=== PATIENT | female | born 1930 | race Caucasian/White ===

== ENCOUNTER 2020-11-05 20:45 | Inpatient (IN) ==
[2020-11-05] MEDS ORDERED: ONDANSETRON INJ 2 MG/ML 2 ML VIAL IV STA (20:56)
[2020-11-05 21:14] LABS: Basophils # (auto) 0.04 K/uL (0-0.2); Basophils % (auto) 0.3 %; Eosinophils # (auto) 0.39 K/uL (0-0.5); Eosinophils % (auto) 2.9 %; Hematocrit (blood only) 44.6 % (37-47); Hemoglobin 15.3 g/dL (12.0-16.0); Immature Granulocytes # (auto) 0.04 K/uL (0.00-0.02); Immature Granulocytes % (auto) 0.3 %; Lymphocytes # (auto) 3.03 K/uL (1.2-3.4); Lymphocytes % (auto) 22.9 %; Mean Corpuscular Hgb Conc 34.3 g/dL (32-36); Mean Corpuscular Volume 93.3 fL (80-100); Mean Platelet Volume 9.1 fL (7.4-10.4); Monocytes # (auto) 1.04 K/uL (0.11-0.59); Monocytes % (auto) 7.9 %; Neutrophils % (auto) 65.7 %; Platelet Count 301 K/uL (130-400); RDW Coefficient of Variation 13.2 % (11.5-14.5); RDW Standard Deviation 45.1 fL (36.4-46.3); Red Blood Count 4.78 M/uL (4.2-5.4); White Blood Count 13.24 K/uL (4.8-10.8)
[2020-11-05 21:30] LABS: Albumin Level 4.1 gm/dl (3.4-5.0); BUN Creatinine Ratio 14.8 (10-20); Calcium 9.7 mg/dl (8.5-10.1); Creatinine Clr Calc Pharmacy 30.6 ml/min; Est GFR (African American) 53.3; Potassium 3.7 mmol/L (3.5-5.1)
[2020-11-05 21:35] LABS: Albumin Globulin Ratio 1.1 (0.9-2); Bilirubin,Total 0.5 mg/dl (0.2-1); Globulin 3.7 gm/dl (2.5-4.0); Total Protein 7.8 gm/dl (6.4-8.2); Troponin I 0.029 ng/ml (0-0.045)
[2020-11-05] MEDS ORDERED: fentaNYL citrate 100 MCG/2 ML VIAL IV STA ×2 (21:49→22:05)
[2020-11-05] MEDS ORDERED: fentaNYL citrate 100 MCG/2 ML VIAL ONE ×2 (21:49→22:08)
--- NOTE | 2020-11-05 21:58 | Emergency Department Note ---
Impression & Plan Acute LA, Chest pain, ST elevation (STEMI) myocardial infarction ED Provider Note NAME: ALEXANDRA HERNANDEZ AGE: 89 SEX: F : [phone] ARRIVES VIA: Ambulance INFORMANT: Patient, the patient's daughter ED PROVIDER(S): Abhinav Cuevas DO CHIEF COMPLAINT: Chest pain HPI: The patient is an 89-year-old female who presented to the emergency department for an evaluation of chest pain. The patient states that she has pain which is in her anterior chest and goes between her shoulder blades. She describes it is very severe. She denies having any lower extremity pain. She does note lower extremity swelling. She denies having any abdominal pain but does complain of nausea and vomiting. Her daughter gives part of the history and states that her mother had some of this pain yesterday. The pain became much worse tonight at approximately 7 PM. That is why her mother came to the emergency department for further evaluation. She denies having any recent trauma. She has had no coughing. She does complain of some shortness of sari th. She has had no recent traveling. She is not seen her family doctor for similar pain. The patient did receive aspirin prior to arrival. She also received Zofran by nursing staff by protocol orders. ROS: See above HPI for pertinent positives & negatives. A total of 10 systems reviewed and were otherwise negative. PAST MEDICAL HISTORY: See Below PAST SURGICAL HISTORY: See Below FAMILY HISTORY: See Below SOCIAL HISTORY: See Below HOME MEDICATIONS: See Below ALLERGIES: See Below VITALS: See Below PHYSICAL EXAMINATION: GENERAL: The patient is awake and alert. The patient is very anxious appearing and appears to be in significant distress. EYES: The conjunctivae are clear. The pupils are round and reactive. EARS, NOSE, MOUTH AND THROAT: The nose is without any evidence of any deformity. NECK: The neck is nontender and supple. RESPIRATORY: Shallow respirations were noted. There were rales at both bases. CARDIOVASCULAR: Regular rate and rhythm noted there no murmurs rubs or gallops normal S1 normal S2. GASTROINTESTINAL: The abdomen is soft. Abdomen is nontender. MUSCULOSKELETAL/EXTREMITIES: There is no evidence of gross deformity full range of motion is noted in the hips and shoulders. SKIN: Skin is warm and dry. There is pedal edema bilaterally. NEUROLOGIC: Patient is awake alert and oriented x3 MEDICAL DECISION MAKING: The patient is an 89-year-old female who presented to the emergency department for an evaluation of chest pain. The patient describes anterior chest pain that radiated to her back. The patient was treated with aspirin prior to arrival. She was also treated with Zofran because of nausea and fentanyl in the emergency department for her discomfort. The patient was made a heart alert after EKG revealed signs of ST segment elevation LA. I discussed the patient's laboratory and radiographic studies with her. I also discussed her case with the on-call tailing machine operator. Given the patient's findings and degree of pain she was taken to the [facility] for further intervention. The patient was agreeable to this plan. I did review the patient's previous electronic medical records from her [facility] site. The EKG presented today showed definite changes compared to previous. Triage Nursing notes reviewed. Prior medical records reviewed Vital Signs: reviewed and remarkable for no significant abnormalities Differential diagnosis: Cardiac ischemia, aortic dissection, pulmonary embolism, pneumothorax, pneumonia, pericarditis, myocarditis, esophageal rupture, GERD, cholecystitis, pancreatitis, musculoskeletal, as well as other pathologies. ER treatment provided: See below Diagnostics interpreted by me: ECG: EKG was obtained in the emergency department. My interpretation is sinus tachycardia at 108 bpm. There was no ectopy. There was a left bundle branch block pattern noted. Acute ST segment elevations were noted in the anterior and low lateral leads that are worrisome for acute ischemia. This was compared to a tracing from June 30, 2018. The bundle branch block as well as the ST segment abnormalities are new compared to the earlier tracing. A second EKG was obtained in the ED. My interpretation is sinus tachycardia at 111 BPM. There is a LBBB pattern noted. There is more obvious ST elevations noted in the anterior and low lateral leads. This appears to be more consistent with a STEMI with LBBB which is new compared to previous tracing. A prehospital EKG was obtained. This appeared to be consistent with normal sinus rhythm at 81 bpm. There was no ectopy. There was no definite bundle branch block noted. Cardiac Monitoring: An order was placed for continuous cardiac monitoring. The monitor shows a rate of 95 bpm with sinus rhythm. Laboratory studies: As stated above and show below. Imaging studies: See below Consultation(s): I discussed this case with Dr. Alexander who is on-call for the tailing machine operator. He was at the bedside evaluating the patient after the heart alert was called. ED COURSE: Procedures: none PDMP:reviewed and no issues Critical Care: I have personally spent greater than 35 minutes of critical care time in the direct management of this patient. This includes bedside care, interpretation of diagnostic studies, and testing, discussion with consultants, patient, and family members, and other required patient management activities. This 35 minutes is in excess of all separately billable procedures. Past Med/Surg History Medical History Asthma with exacerbation Hyperlipidemia Hypertension Non Hodgkin's lymphoma Social History Smoking Status: Never smoker Hx Alcohol Use: No Hx Substance Use: No Preferred Language: Uzbek Communication Ability: Effective Financial Recording Clerk Required: No Beliefs That Will Affect Care: None Current Living Situation: Alone Other Information That Helps Us Care for You: No Feels Safe at Home: Yes Safety Concerns: Feels Safe At This Time Assistive Devices: Glasses and Walker Allergies Allergies Allergy/AdvReac Type Severity Reaction Status Date / Time codeine Allergy Mild 0 Verified 11/05/20 22:15 aminosalicylic acid Allergy PT TAKES Verified 11/05/20 22:15 ASA AT HOME W/O PROBLEM Home Meds Home Medications Medication Instructions Recorded Confirmed albuterol sulfate 2 puff INHALATION Q6 PRN 11/05/20 11/05/20 alprazolam 0.25 mg PO HS PRN 11/05/20 11/05/20 amlodipine 5 mg PO DAILY 11/05/20 11/05/20 aspirin [Aspirin Low Dose] 81 mg PO DAILY 11/05/20 11/05/20 fluticasone propion-salmeterol 1 inh INHALATION BID 11/05/20 11/05/20 [Wixela Inhub] gabapentin 100 mg PO TID 11/05/20 11/05/20 lisinopril 20 mg PO DAILY 11/05/20 11/05/20 metoprolol succinate 50 mg PO DAILY 11/05/20 11/05/20 multivitamin 1 tab PO DAILY 11/05/20 11/05/20 Results & Data (ED) Vital Signs Vital Signs - 24 hr 11/05/20 20:52 11/05/20 20:54 11/05/20 21:04 Temperature 36.7 C Temperature Source Oral Pulse Rate 106 H 108 H Pulse Rate [Apical] Pulse Rate from SpO2 Sensor 98 H Pulse Rhythm Irregular Respiratory Rate 16 20 Respiratory Depth Shallow Blood Pressure 168/106 H 168/106 H Blood Pressure [Left Arm] Blood Pressure Mean 126 126 Blood Pressure Mean [Left Arm] Blood Pressure Position [Left Arm] Pulse Oximetry 93 90 92 Oxygen Delivery Method Room Air Room Air Oxygen Flow Rate Sepsis Recent Fever Within 48 Hours No Sepsis New/Unexplained Change in Mental Status No Sepsis Action Taken by Nursing No Action Required 11/05/20 21:17 11/05/20 21:20 11/05/20 21:30 Temperature Temperature Source Pulse Rate 121 H 110 H 105 H Pulse Rate [Apical] Pulse Rate from SpO2 Sensor 122 H 110 H 105 H Pulse Rhythm Respiratory Rate 21 20 20 Respiratory Depth Blood Pressure Blood Pressure [Left Arm] Blood Pressure Mean Blood Pressure Mean [Left Arm] Blood Pressure Position [Left Arm] Pulse Oximetry 93 92 92 Oxygen Delivery Method Oxygen Flow Rate Sepsis Recent Fever Within 48 Hours Sepsis New/Unexplained Change in Mental Status Sepsis Action Taken by Nursing 11/05/20 21:40 11/05/20 21:50 11/05/20 22:00 Temperature Temperature Source Pulse Rate 112 H 112 H 120 H Pulse Rate [Apical] Pulse Rate from SpO2 Sensor 105 H 119 H Pulse Rhythm Respiratory Rate 18 16 17 Respiratory Depth Blood Pressure Blood Pressure [Left Arm] Blood Pressure Mean Blood Pressure Mean [Left Arm] Blood Pressure Position [Left Arm] Pulse Oximetry 92 95 Oxygen Delivery Method Oxygen Flow Rate Sepsis Recent Fever Within 48 Hours Sepsis New/Unexplained Change in Mental Status Sepsis Action Taken by Nursing 11/05/20 22:07 11/05/20 22:08 11/05/20 22:10 Temperature Temperature Source Pulse Rate 110 H 111 H 112 H Pulse Rate [Apical] Pulse Rate from SpO2 Sensor 110 H 111 H 112 H Pulse Rhythm Respiratory Rate 19 20 24 Respiratory Depth Blood Pressure 145/84 H 158/98 H Blood Pressure [Left Arm] Blood Pressure Mean 104 118 Blood Pressure Mean [Left Arm] Blood Pressure Position [Left Arm] Pulse Oximetry 95 95 95 Oxygen Delivery Method Oxygen Flow Rate Sepsis Recent Fever Within 48 Hours Sepsis New/Unexplained Change in Mental Status Sepsis Action Taken by Nursing 11/05/20 23:30 Temperature 36.4 C L Temperature Source Oral Pulse Rate Pulse Rate [Apical] 110 H Pulse Rate from SpO2 Sensor Pulse Rhythm Respiratory Rate 22 Respiratory Depth Blood Pressure Blood Pressure [Left Arm] 135/75 Blood Pressure Mean Blood Pressure Mean [Left Arm] 95 Blood Pressure Position [Left Arm] Lying Pulse Oximetry 96 Oxygen Delivery Method Nasal Cannula Oxygen Flow Rate 4 Sepsis Recent Fever Within 48 Hours Sepsis New/Unexplained Change in Mental Status Sepsis Action Taken by [facility] Medications Current Medication List: was personally reviewed by me Laboratory Data Attestation: I reviewed the patient's lab results. Result diagrams: 11/06/20 04:13 11/06/20 04:13 Lab Results 11/05/20 11/05/20 11/05/20 Range/Units 21:05 21:05 21:05 WBC 13.24 H (4.8-10.8) K/uL RBC 4.78 (4.2-5.4) M/uL Hgb 15.3 (12.0-16.0) g/dL Hct 44.6 (37-47) % MCV 93.3 (80-100) fL MCH 32.0 (25-34) pg MCHC 34.3 (32-36) g/dL RDW Std Deviation 45.1 (36.4-46.3) fL RDW Coeff of Jono 13.2 (11.5-14.5) % Plt Count 301 (130-400) K/uL MPV 9.1 (7.4-10.4) fL Immature Gran % (Auto) 0.3 % Neut % (Auto) 65.7 % Lymph % (Auto) 22.9 % Davidson % (Auto) 7.9 % Eos % (Auto) 2.9 % Baso % (Auto) 0.3 % Neut # (Auto) 8.70 H (1.4-6.5) K/uL Lymph # (Auto) 3.03 (1.2-3.4) K/uL Davidson # (Auto) 1.04 H (0.11-0.59) K/uL Eos # (Auto) 0.39 (0-0.5) K/uL Baso # (Auto) 0.04 (0-0.2) K/uL Immature Gran # (Auto) 0.04 H (0.00-0.02) K/uL Sodium 136 (136-145) mmol/L Potassium 3.7 (3.5-5.1) mmol/L Chloride 101 (98-107) mmol/L Carbon Dioxide 27 (21-32) mmol/L Anion Gap 8.0 (3-11) BUN 16 (7-18) mg/dl Creatinine 1.07 (0.6-1.2) mg/dl Est Cr Clr Drug Dosing 30.6 ml/min Est GFR ( Amer) 53.3 Est GFR (Non-Af Amer) 46.0 BUN/Creatinine Ratio 14.8 (10-20) Glucose 190 H (70-99) mg/dl Calcium 9.7 (8.5-10.1) mg/dl Magnesium 2.1 (1.8-2.4) mg/dl Total Bilirubin 0.5 (0.2-1) mg/dl AST 17 (15-37) U/L ALT 18 (12-78) U/L Alkaline Phosphatase 103 (45-117) U/L Troponin I 0.029 (0-0.045) ng/ml Total Protein 7.8 (6.4-8.2) gm/dl Albumin 4.1 (3.4-5.0) gm/dl Globulin 3.7 (2.5-4.0) gm/dl Albumin/Globulin Ratio 1.1 (0.9-2) Lipase 84 (73-393) U/L Procalcitonin < 0.05 (0-0.5) ng/ml TSH 4.660 H (0.300-4.500) uIu/ml COVID-19 Eval Order SARS-CoV-2 (PCR) (Negative) Influenza Type A (PCR) (Neg) Influenza Type B (PCR) (Neg) RSV (RT-PCR) (Neg) 11/05/20 11/05/20 Range/Units 21:45 21:45 WBC (4.8-10.8) K/uL RBC (4.2-5.4) M/uL Hgb (12.0-16.0) g/dL Hct (37-47) % MCV (80-100) fL MCH (25-34) pg MCHC (32-36) g/dL RDW Std Deviation (36.4-46.3) fL RDW Coeff of Jono (11.5-14.5) % Plt Count (130-400) K/uL MPV (7.4-10.4) fL Immature Gran % (Auto) % Neut % (Auto) % Lymph % (Auto) % Davidson % (Auto) % Eos % (Auto) % Baso % (Auto) % Neut # (Auto) (1.4-6.5) K/uL Lymph # (Auto) (1.2-3.4) K/uL Davidson # (Auto) (0.11-0.59) K/uL Eos # (Auto) (0-0.5) K/uL Baso # (Auto) (0-0.2) K/uL Immature Gran # (Auto) (0.00-0.02) K/uL Sodium (136-145) mmol/L Potassium (3.5-5.1) mmol/L Chloride (98-107) mmol/L Carbon Dioxide (21-32) mmol/L Anion Gap (3-11) BUN (7-18) mg/dl Creatinine (0.6-1.2) mg/dl Est Cr Clr Drug Dosing ml/min Est GFR ( Amer) Est GFR (Non-Af Amer) BUN/Creatinine Ratio (10-20) Glucose (70-99) mg/dl Calcium (8.5-10.1) mg/dl Magnesium (1.8-2.4) mg/dl Total Bilirubin (0.2-1) mg/dl AST (15-37) U/L ALT (12-78) U/L Alkaline Phosphatase (45-117) U/L Troponin I (0-0.045) ng/ml Total Protein (6.4-8.2) gm/dl Albumin (3.4-5.0) gm/dl Globulin (2.5-4.0) gm/dl Albumin/Globulin Ratio (0.9-2) Lipase (73-393) U/L Procalcitonin (0-0.5) ng/ml TSH (0.300-4.500) uIu/ml COVID-19 Eval Order CovFluRsv at [facility] SARS-CoV-2 (PCR) NEGATIVE (Negative) Influenza Type A (PCR) Negative (Neg) Influenza Type B (PCR) Negative (Neg) RSV (RT-PCR) Negative (Neg) Administered Medications Albuterol (Albut/Ipratrop 3mg/0.5mg Neb 3 Ml Vial) 3 ml NEB Q4R PRN PRN Reason: Wheezing Stop: 12/06/20 00:05 Last Admin: 11/06/20 00:31 Dose: 3 ml Documented by: [id number] Aspirin (Aspirin 81 Mg Ectab) 81 mg PO [facility] Stop: 12/06/20 08:59 Last Admin: 11/06/20 08:00 Dose: 81 mg Documented by: [id number] Atorvastatin Calcium (Atorvastatin 40 Mg Tab) 40 mg PO [facility] Stop: 12/06/20 08:59 Last Admin: 11/06/20 08:01 Dose: 40 mg Documented by: [id number] Clopidogrel Bisulfate (Clopidogrel Bisulfate 75 Mg Tab) 75 mg PO [facility] Stop: 12/06/20 08:59 Last Admin: 11/06/20 08:00 Dose: 75 mg Documented by: [id number] Enoxaparin Sodium (Enoxaparin Inj 30 Mg/0.3 Ml Syr) 30 mg SQ [facility] Stop: 12/06/20 08:59 Last Admin: 11/06/20 09:00 Dose: 30 mg Documented by: [id number] Fluticasone/Vilanterol (Fluticasone/Vilanterol 100/25mcg 14 Puffs/Inhaler) 1 puffs INH DAILY [facility] Stop: 12/06/20 08:59 Last Admin: 11/06/20 08:59 Dose: 1 puffs Documented by: [id number] Gabapentin (Gabapentin 100 Mg Cap) 100 mg PO TID [facility] Stop: 12/06/20 08:59 Last Admin: 11/06/20 08:00 Dose: 100 mg Documented by: [id number] Ampicillin Sodium/Sulbactam Sodium 3,000 mg/ Sodium Chloride 108 mls @ 200 mls/hr IV Q6H [facility]; Protocol Stop: 11/13/20 00:59 Last Infusion: 11/06/20 10:57 Dose: 0 mls/hr Documented by: [id number] Admin: 11/06/20 08:58 Dose: 200 mls/hr Documented by: [id number] Infusion: 11/06/20 07:10 Dose: 0 mls/hr Documented by: [id number] Admin: 11/06/20 01:22 Dose: 200 mls/hr Documented by: [id number] Magnesium Sulfate/Dextrose (Magnesium Sulfate / D5w) 1 gm in 100 mls @ 50 mls/hr IV Q2H [facility] Stop: 11/06/20 12:29 Last Admin: 11/06/20 11:01 Dose: 50 mls/hr Documented by: [id number] Infusion: 11/06/20 10:58 Dose: 0 mls/hr Documented by: [id number] Admin: 11/06/20 08:58 Dose: 50 mls/hr Documented by: [id number] Insulin Aspart (Insulin Aspart 100 Units/Ml 3 Ml Pen) 0 units SC ACHS [facility] Stop: 12/06/20 00:14 Last Admin: 11/06/20 08:15 Dose: 3 units Documented by: [id number] Cosigned by: [id number] Admin: 11/06/20 00:40 Dose: 3 units Documented by: [id number] Cosigned by: [id number] Lisinopril (Lisinopril 5 Mg Tab) 5 mg PO QAM [facility] Stop: 12/06/20 08:59 Last Admin: 11/06/20 09:01 Dose: 5 mg Documented by: [id number] Multivitamins (Multivitamin Tab) 1 tab PO DAILY [facility] Stop: 12/06/20 08:59 Last Admin: 11/06/20 09:01 Dose: 1 tab Documented by: [id number] Discontinued Medications Albuterol (Albut/Ipratrop 3mg/0.5mg Neb 3 Ml Vial) Confirm Administered Dose 3 ml .ROUTE .STK-MED ONE Stop: 11/06/20 00:14 Last Admin: 11/06/20 07:10 Dose: Not Given Documented by: [id number] Albuterol (Albut/Ipratrop 3mg/0.5mg Neb 3 Ml Vial) 12 ml NEB ONE ONE Stop: 11/06/20 00:22 Last Admin: 11/06/20 00:46 Dose: 12 ml Documented by: [id number] Albuterol (Albut/Ipratrop 3mg/0.5mg Neb 3 Ml Vial) Confirm Administered Dose 6 ml .ROUTE .STK-MED ONE Stop: 11/06/20 00:36 Last Admin: 11/06/20 07:10 Dose: Not Given Documented by: [id number] Clopidogrel Bisulfate (Clopidogrel Bisulfate 300 Mg Tab) Confirm Administered Dose 600 mg .ROUTE .STK-MED ONE Stop: 11/05/20 23:15 Last Admin: 11/05/20 23:29 Dose: 600 mg Documented by: [id number] Fentanyl Citrate (Fentanyl Citrate 100 Mcg/2 Ml Vial) 50 mcg IV NOW STA Stop: 11/05/20 21:50 Last Admin: 11/05/20 21:53 Dose: 50 mcg Documented by: [id number] Fentanyl Citrate (Fentanyl Citrate 100 Mcg/2 Ml Vial) Confirm Administered Dose 100 mcg .ROUTE .STK-MED ONE Stop: 11/05/20 21:50 Last Admin: 11/05/20 21:53 Dose: Not Given Documented by: [id number] Fentanyl Citrate (Fentanyl Citrate 100 Mcg/2 Ml Vial) 50 mcg IV NOW STA Stop: 11/05/20 22:06 Last Admin: 11/05/20 22:09 Dose: 50 mcg Documented by: [id number] Fentanyl Citrate (Fentanyl Citrate 100 Mcg/2 Ml Vial) Confirm Administered Dose 100 mcg .ROUTE .STK-MED ONE Stop: 11/05/20 22:09 Last Admin: 11/05/20 23:57 Dose: Not Given Documented by: [id number] Heparin Sodium (Porcine) (Heparin (Porcine) 1000 Unit/Ml 10 Ml ([facility] [employer] Use Only)) Confirm Administered Dose 10,000 units .ROUTE .STK-MED ONE Stop: 11/05/20 22:08 Last Admin: 11/05/20 23:57 Dose: Not Given Documented by: [id number] Heparin Sodium/Sodium Chloride (Heparin In Nss Infusion 1000 Unit/500 Ml (2 U/Ml) Bag) Confirm Administered Dose 3,000 units IV .STK-MED ONE Stop: 11/05/20 22:09 Last Admin: 11/05/20 23:57 Dose: Not Given Documented by: [id number] Furosemide 20 mg/ Syringe 2 mls @ 4 mls/min IV ONE ONE Stop: 11/06/20 00:16 Last Admin: 11/06/20 02:04 Dose: 4 mls/min Documented by: [id number] Methylprednisolone 40 mg/ (Syringe) 0.64 mls @ 1.5 mls/min IV [facility] ONE Stop: 11/06/20 00:31 Last Admin: 11/06/20 00:36 Dose: 1.5 mls/min Documented by: [id number] Methylprednisolone 40 mg/ (Syringe) 0.64 mls @ 1.5 mls/min IV Q8H [facility] Stop: 12/06/20 05:59 Last Admin: 11/06/20 06:09 Dose: 1.5 mls/min Documented by: [id number] Furosemide 20 mg/ Syringe 2 mls @ 4 mls/min IV ONE ONE Stop: 11/06/20 11:01 Last Admin: 11/06/20 11:06 Dose: 4 mls/min Documented by: [id number] Insulin Glargine (Insulin Glargine Solostar 100 Units/Ml 3 Ml Pen) 5 units SC NOW STA Stop: 11/06/20 01:04 Last Admin: 11/06/20 01:23 Dose: 5 units Documented by: [id number] Cosigned by: [id number] Metoprolol Tartrate (Metoprolol Tartrate 25 Mg Tab) 12.5 mg PO BID [facility] Stop: 12/06/20 08:59 Last Admin: 11/06/20 08:59 Dose: 12.5 mg Documented by: [id number] Midazolam HCl (Midazolam Hcl 1 Mg/Ml 2ml Vial) Confirm Administered Dose 2 mg .ROUTE .STK-MED ONE Stop: 11/05/20 22:08 Last Admin: 11/05/20 23:57 Dose: Not Given Documented by: [id number] Nicardipine HCl (Nicardipine Hcl Inj 2.5 Mg/Ml 10 Ml Amp) Confirm Administered Dose 25 mg .ROUTE .STK-MED ONE Stop: 11/05/20 22:08 Last Admin: 11/05/20 23:56 Dose: Not Given Documented by: [id number] Nitroglycerin/Dextrose (Nitroglycerin/D5w 100mcg/Ml 20ml Syr) Confirm Administered Dose 2,000 mcg .ROUTE .STK-MED ONE Stop: 11/05/20 22:09 Last Admin: 11/05/20 23:58 Dose: Not Given Documented by: [id number] Norepinephrine Bitartrate (Norepinephrine Bitartrate 1 Mg/Ml 4 Ml Vial ([employer] [employer] Use Only)) Confirm Administered Dose 4 mg .ROUTE .STK-MED ONE Stop: 11/05/20 22:39 Last Admin: 11/06/20 07:11 Dose: Not Given Documented by: [id number] Ondansetron HCl (Ondansetron Inj 2 Mg/Ml 2 Ml Vial) 4 mg IV NOW STA Stop: 11/05/20 20:57 Last Admin: 11/05/20 21:07 Dose: 4 mg Documented by: [id number] Ondansetron HCl (Ondansetron Inj 2 Mg/Ml 2 Ml Vial) Confirm Administered Dose 4 mg .ROUTE .STK-MED ONE Stop: 11/06/20 00:31 Last Admin: 11/06/20 00:36 Dose: 4 mg Documented by: [id number] Potassium Chloride (Potassium Chloride Crtab 20 Meq Tabcr) 40 meq PO NOW STA Stop: 11/05/20 23:59 Last Admin: 11/06/20 08:59 Dose: Not Given Documented by: [id number] Potassium Chloride (Potassium Chloride Pwd 20 Meq Pack) 40 meq PO ONE ONE Stop: 11/06/20 08:31 Last Admin: 11/06/20 10:56 Dose: Not Given Documented by: [id number] Potassium Chloride (Potassium Chloride 20 Meq/15 Ml Udc) 60 meq PO 1100 ONE Stop: 11/06/20 11:01 Last Admin: 11/06/20 11:01 Dose: 60 meq Documented by: [id number] Imaging Data Attestation: I personally reviewed and interpreted this imaging study as follows: My Impression: Chest x-ray was obtained in the emergency department. My interpretation is heart size is top normal. There was signs of volume overload and pulmonary edema. There is no infiltrate or free air noted. Radiologist's Impression: Chest X-Ray 11/05/20 20:56 XR chest 1V portable CLINICAL HISTORY: Chest Pain COMPARISON STUDY: Chest radiograph August 09, 2013. Chest CT August 11, 2013. FINDINGS: There are trace bilateral pleural effusions. There is no pneumothorax. Mild pulmonary edema is present. Cardiac silhouette is at the upper limits of normal for size. There is no lobar consolidation. IMPRESSION: 1. Interstitial thickening suggestive of mild pulmonary edema. 2. Trace bilateral pleural effusions. ACT 112: Negative or not required by law. Electronically signed by: Ricco Swanson M.D. 11/06/2020 8:12 AM Discharge Plan Visit Data Chief Complaint: Chest Pain Stated Complaint: Chest pain ED Provider: Abhinav Cuevas Discharge Problem: Acute LA, Chest pain, ST elevation (STEMI) myocardial infarction Patient Disposition: Admitted As Inpatient Condition: Good Discharge Instructions Interventions: ED Discharge Assessment Last Done: 11/05/20 22:19 Discharge Problem: Acute LA Qualifiers: Myocardial infarction type: unspecified Involved coronary artery: unspecified coronary artery Qualified Code(s): I21.9 - Acute myocardial infarction, unspecified Chest pain Qualifiers: Chest pain type: unspecified Qualified Code(s): R07.9 - Chest pain, unspecified ST elevation (STEMI) myocardial infarction Qualifiers: Involved coronary artery: unspecified coronary artery Qualified Code(s): I21.3 - ST elevation (STEMI) myocardial infarction of unspecified site
[2020-11-05] MEDS ORDERED: niCARdipine HCL INJ 2.5 MG/ML 10 ML AMP ONE (22:07)
[2020-11-05] MEDS ORDERED: HEPARIN (PORCINE) 1000 UNIT/ML 10 ML (CATH LAB USE ONLY) ONE (22:07)
[2020-11-05] MEDS ORDERED: MIDAZOLAM HCL 1 MG/ML 2ML VIAL ONE (22:07)
[2020-11-05] MEDS ORDERED: NITROGLYCERIN/D5W 100MCG/ML 20ML SYR ONE (22:08)
--- NOTE | 2020-11-05 22:23 | Pre Anesthesia Assessment ---
Date of Service November 05, 2020 Pre Sedation Assessment Vital Signs Temp Pulse Resp BP Pulse Ox 11/05/20 22:10 112 H 24 95 11/05/20 22:08 111 H 20 158/98 H 95 11/05/20 22:07 110 H 19 145/84 H 95 11/05/20 22:00 120 H 17 95 11/05/20 21:50 112 H 16 11/05/20 21:40 112 H 18 92 11/05/20 21:30 105 H 20 92 11/05/20 21:20 110 H 20 92 11/05/20 21:17 121 H 21 93 11/05/20 21:04 92 11/05/20 20:54 98.1 F 108 H 20 168/106 H 90 11/05/20 20:52 106 H 16 168/106 H 93 Cardiovascular RRR, no murmur, no edema Respiratory normal respiratory effort, lungs clear to auscultation Pre-Sedation Airway Assessment Smoking Status: Former smoker Hx Sleep Apnea: No Hx Difficult Intubation: No Short, Thick Neck: No Thyromental Distance: > or= 3.5 Finger Breadths Oral Cavity: + WNL Mallampati Class: III ASA: ASA3 Procedure Planning Contraindications for Sedation: none Current Medications Reviewed: Yes Notes The planned sedation has been discussed with the patient. Informed Consent was obtained. I have identified the patient, determined the appropriateness of sedation and have assessed the patient immediately prior to the procedure. All medicine(s) and interventions are by my order.
--- NOTE | 2020-11-05 22:29 | Cardiology Consultation ---
Date of Consultation November 05, 2020 Assessment & Plan (1) Acute [place]: Presentation consistent with anterior STEMI and recommend proceeding with emergent cardiac catheterization and likely primary PCI. No apparent contraindications to procedure. Discussed risks, benefits, alternatives of procedure with patient and they are willing to proceed. Further recommendations pending findings of coronary angiography. History of Present Illness History of Present Illness 89-year-old woman here with acute chest pain and ECG concerning for acute [place]. Patient seen emergently in the ED after heart alert activated upon arrival. Cardiac is remarkable for left bundle branch block and aortic sclerosis. Previously saw Dr. Flower, last in 2014, negative Lexiscan SPECT at that time. Cardiac risk factors include hypertension, dyslipidemia, prediabetes. Other medical issues include mild persistent asthma, and lumbar degenerative disc disease. Chest pain began approximately 2 hours prior, around 8 PM while at rest. Tod cribes severe pain primarily in her back between her shoulder blades associated nausea, vomiting. Had a similar episode of pain the preceding night around the same time which resolved on its own. Today during the day states she felt well and was active. Thought the pain was indigestion but different than prior symptoms she has had in the past. Severe chest pain and vomiting ongoing at time of arrival. Hemodynamically stable. EKG showed new anterior ST elevations. Allergies Allergy/AdvReac Type Severity Reaction Status Date / Time codeine Allergy Mild 0 Verified 11/05/20 22:15 aminosalicylic acid Allergy PT TAKES Verified 11/05/20 22:15 ASA AT HOME W/O PROBLEM Home Medications Medication Instructions Recorded Confirmed Type albuterol sulfate 2 puff INHALATION Q6 PRN 11/05/20 11/05/20 History alprazolam 0.25 mg PO HS PRN 11/05/20 11/05/20 History amlodipine 5 mg PO DAILY 11/05/20 11/05/20 History aspirin [Aspirin Low Dose] 81 mg PO DAILY 11/05/20 11/05/20 History fluticasone propion-salmeterol 1 inh INHALATION BID 11/05/20 11/05/20 History [Wixela Inhub] gabapentin 100 mg PO TID 11/05/20 11/05/20 History lisinopril 20 mg PO DAILY 11/05/20 11/05/20 History metoprolol succinate 50 mg PO DAILY 11/05/20 11/05/20 History multivitamin 1 tab PO DAILY 11/05/20 11/05/20 History Patient History Medical History (Updated 11/05/20 @ 22:27 by Efren Alexander MD) Asthma with exacerbation Hyperlipidemia Hypertension Non Hodgkin's lymphoma Social History Smoking Status: Former smoker Feels Safe at Home: Yes Review of Systems Review of Systems: Complete in the setting of emergent situation Physical Exam Physical Exam: General: Uncomfortable, vomiting HEENT: Sclerae anicteric Lungs: Scattered wheezes Cardiac: Regular rate and rhythm, 2-6 systolic ejection murmur Vascular: 2+ radial Abdomen: Soft, nontender Extremities: Well perfused, no peripheral edema Neuro: Nonfocal Psych: Alert orient x3, normal affect and mood Results & Data ([facility]) Vital Signs (Past 12 Hours) Vital Signs Temp Pulse Resp BP Pulse Ox 11/05/20 22:10 112 H 24 95 11/05/20 22:08 111 H 20 158/98 H 95 11/05/20 22:07 110 H 19 145/84 H 95 11/05/20 22:00 120 H 17 95 11/05/20 21:50 112 H 16 11/05/20 21:40 112 H 18 92 11/05/20 21:30 105 H 20 92 11/05/20 21:20 110 H 20 92 11/05/20 21:17 121 H 21 93 11/05/20 21:04 92 11/05/20 20:54 98.1 F 108 H 20 168/106 H 90 11/05/20 20:52 106 H 16 168/106 H 93 PG Care Time/CCT Total # of Minutes Spent Total Time Spent with Patient: Total time spent is greater than 50% in coordination of care (as documented) at patient's floor/unit and/or counseling patient: Coding Level of Care Code 00153 Initial Inpt Care Lvl 3 Diagnoses Acute [place] I21.9
[2020-11-05 22:37] LABS: Influenza A virus by PCR Negative (Neg); Influenza B virus by PCR Negative (Neg); RSV by PCR Negative (Neg); SARS CoV2 RNA(COVID-19) InHosp NEGATIVE (Negative)
[2020-11-05] MEDS ORDERED: NOREPINEPHRINE BITARTRATE 1 MG/ML 4 ML VIAL (CATH LAB USE ONLY) ONE (22:38)
[2020-11-05] MEDS ORDERED: CLOPIDOGREL BISULFATE 300 MG TAB ONE (23:14)
--- NOTE | 2020-11-05 23:21 | Post Anesthesia Assessment ---
Date of Service November 05, 2020 Post Sedation Assessment Vital Signs Temp Pulse Resp BP Pulse Ox 11/05/20 22:10 112 H 24 95 11/05/20 22:08 111 H 20 158/98 H 95 11/05/20 22:07 110 H 19 145/84 H 95 11/05/20 22:00 120 H 17 95 11/05/20 21:50 112 H 16 11/05/20 21:40 112 H 18 92 11/05/20 21:30 105 H 20 92 11/05/20 21:20 110 H 20 92 11/05/20 21:17 121 H 21 93 11/05/20 21:04 92 11/05/20 20:54 98.1 F 108 H 20 168/106 H 90 11/05/20 20:52 106 H 16 168/106 H 93 Recovery Score Activity: Moves 4 extremities Respiration: Deep Breath/Cough Circulation: +/-20% PreAnes Value Consciousness: Fully Awake Oxygen Saturation: O2 needed for >90% Discharge Sedation Level of Care: Fast Track Phase II Post Sedation Plan On clinical assessment, the patient appears to have tolerated the sedation without complications. Patient is recovering as anticipated. Patient will continue to be monitored by nursing and may be discharged when sedation discharge criteria are met per below protocol. Upon Completions of procedure up to 15 minutes continue every 5 minute vital signs and the P.A.R. score; then discharge to a Phase I or Fast Track to Phase II per the following guidelines: * Discharge Patient to appropriate Phase II area if PAR is 8 or greater or return to pre- procedure baseline. The post - procedure orders will be as directed. * If PAR score is less than 8 or not return to pre-procedure baseline then patient will follow Phase I monitoring till PAR is reached for Phase II. The Phase I may be done in procedure room or may call to secure a Phase I area. * If naloxone or flumazenil are used for reversal, hold in Phase I for continued monitoring from when last reversal dose was given for a minimum of 60 minutes or longer pending the nurse and/or physician discretion of patient condition before discharge to Phase II. Please call the Sedation Physician to re-evaluate and complete post-note for discharge to Phase II area. Do NOT discharge from procedure sedation or Phase 1 until post- sedation evaluation note is complete by procedure /sedation MD Sedation Discharge Instructions to be given to the patient at discharge to home.
[2020-11-05] MEDS ORDERED: ICU PROTOCOL FOR HYPERGLYCEMIA PRN ×2 (23:31→23:34)
--- NOTE | 2020-11-05 23:37 | History & Physical Report ---
Date of Service November 05, 2020 Assessment & Plan (1) ST elevation (STEMI) myocardial infarction: Mid LAD occlusion status post MARIETTA placement Acute hypoxemic respiratory failure secondary to acute CHF hypertension, stable chronic left bundle branch block prediabetes, BSG currently elevated recent outpatient hemoglobin A1c of 6.04 May 2020 ICU monitoring post PCI Management of cardiac issues as per cardiology. Supplemental O2 Lasix as per discussion with grinder operator tool. Strict I/Os, daily weights, CHF education Basal insulin, ISS BG goal [id number], carb count coverage, update hemoglobin A1c DVT prophylaxis per Lovenox subcu Full code Text document was generated using [employer] voice recognition software. It may contain grammatical or spelling errors. Kindly contact undersigned for clarification of any documentation item in question. History of Present Illness Chief Complaint: Chest pain Primary Care Provider: Rosa Mendoza DO History obtained from patient and records. Medical history significant for hypertension, chronic left bundle branch block, prediabetes, Last confinement 2013 for asthma exacerbation. 1 week history of bilateral leg swelling and exertional shortness of breath. No cough symptoms. 2 days history of achy substernal pain going to both shoulders with worsening shortness of breath. Patient denies cough symptoms. Patient's family meant to call PCP's office. EMS called for worsening symptoms tonight. Aspirin administered by EMS on route to the hospital. Heart alert called upon arrival at the ER with note of ST elevation on the anterior and lower lateral leads. Patient underwent emergent cardiac catheterization. 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 Subsequent PCI of LAD lesion with MARIETTA performed. Patient currently at ICU room feeling much better. Medical History as above Surgical History : Cystoscopy, hemorrhoidectomy, partial colectomy with anastomosis, cataract surgeries, cholecystectomy Family History : Stroke, lung cancer Personal/Social history : Non-smoker, no EtOH intake, homemaker in her younger years Allergies Allergy/AdvReac Type Severity Reaction Status Date / Time codeine Allergy Mild 0 Verified 11/05/20 22:15 aminosalicylic acid Allergy PT TAKES Verified 11/05/20 22:15 ASA AT HOME W/O PROBLEM Home Medications Medication Instructions Recorded Confirmed Type albuterol sulfate 2 puff INHALATION Q6 PRN 11/05/20 11/05/20 History alprazolam 0.25 mg PO HS PRN 11/05/20 11/05/20 History amlodipine 5 mg PO DAILY 11/05/20 11/05/20 History aspirin [Aspirin Low Dose] 81 mg PO DAILY 11/05/20 11/05/20 History fluticasone propion-salmeterol 1 inh INHALATION BID 11/05/20 11/05/20 History [Wixela Inhub] gabapentin 100 mg PO TID 11/05/20 11/05/20 History lisinopril 20 mg PO DAILY 11/05/20 11/05/20 History metoprolol succinate 50 mg PO DAILY 11/05/20 11/05/20 History multivitamin 1 tab PO DAILY 11/05/20 11/05/20 History Past Med/Surg History Medical History Asthma with exacerbation Hyperlipidemia Hypertension Non Hodgkin's lymphoma Social History Smoking Status: Never smoker Hx Alcohol Use: No Hx Substance Use: No Preferred Language: Sami Communication Ability: Effective Instructional Technologist Required: No Beliefs That Will Affect Care: None Current Living Situation: Alone Other Information That Helps Us Care for You: No Feels Safe at Home: Yes Safety Concerns: Feels Safe At This Time Assistive Devices: Glasses and Walker Review of Systems Review of Systems: As per HPI, all 10 systems reviewed, all other ROS negative Physical Exam Physical Exam: GENERAL: Slightly uncomfortable, pleasant, minimal respiratory distress SKIN: Normal color, warm HEENT: [place] palpebral conjunctivae, no ptosis, dry buccal mucosa, nasal cannula in place NECK : Supple, no tenderness CHEST : Decreased breath sounds, expiratory wheezes, bibasilar crackles, no tenderness HEART : Tachycardic, no obvious murmurs ABDOMEN: Some distention, nontender EXTREMITIES : Bilateral LE swelling, no LE tenderness, no other conspicuous deformities noted NEUROLOGIC : Coherent, no facial asymmetry, no other gross focality Results & Data Results & Data ([facility]) Vital Signs (Past 12 Hours) Vital Signs Temp Pulse Resp BP Pulse Ox 11/05/20 22:10 112 H 24 95 11/05/20 22:08 111 H 20 158/98 H 95 11/05/20 22:07 110 H 19 145/84 H 95 11/05/20 22:00 120 H 17 95 11/05/20 21:50 112 H 16 11/05/20 21:40 112 H 18 92 11/05/20 21:30 105 H 20 92 11/05/20 21:20 110 H 20 92 11/05/20 21:17 121 H 21 93 11/05/20 21:04 92 11/05/20 20:54 36.7 C 108 H 20 168/106 H 90 11/05/20 20:52 106 H 16 168/106 H 93 Laboratory Results Laboratory Results WBC 13.24 K/uL (4.8-10.8) H 11/05/20 21:05 RBC 4.78 M/uL (4.2-5.4) 11/05/20 21:05 Hgb 15.3 g/dL (12.0-16.0) 11/05/20 21:05 Hct 44.6 % (37-47) 11/05/20 21:05 MCV 93.3 fL (80-100) 11/05/20 21:05 MCH 32.0 pg (25-34) 11/05/20 21:05 MCHC 34.3 g/dL (32-36) 11/05/20 21:05 RDW Std Deviation 45.1 fL (36.4-46.3) 11/05/20 21:05 RDW Coeff of Jono 13.2 % (11.5-14.5) 11/05/20 21:05 Plt Count 301 K/uL (130-400) 11/05/20 21:05 MPV 9.1 fL (7.4-10.4) 11/05/20 21:05 Immature Gran % (Auto) 0.3 % 11/05/20 21:05 Neut % (Auto) 65.7 % 11/05/20 21:05 Lymph % (Auto) 22.9 % 11/05/20 21:05 [place] % (Auto) 7.9 % 11/05/20 21:05 Eos % (Auto) 2.9 % 11/05/20 21:05 Baso % (Auto) 0.3 % 11/05/20 21:05 Neut # (Auto) 8.70 K/uL (1.4-6.5) H 11/05/20 21:05 Lymph # (Auto) 3.03 K/uL (1.2-3.4) 11/05/20 21:05 [place] # (Auto) 1.04 K/uL (0.11-0.59) H 11/05/20 21:05 Eos # (Auto) 0.39 K/uL (0-0.5) 11/05/20 21:05 Baso # (Auto) 0.04 K/uL (0-0.2) 11/05/20 21:05 Immature Gran # (Auto) 0.04 K/uL (0.00-0.02) H 11/05/20 21:05 Sodium 136 mmol/L (136-145) 11/05/20 21:05 Potassium 3.7 mmol/L (3.5-5.1) 11/05/20 21:05 Chloride 101 mmol/L (98-107) 11/05/20 21:05 Carbon Dioxide 27 mmol/L (21-32) 11/05/20 21:05 Anion Gap 8.0 (3-11) 11/05/20 21:05 BUN 16 mg/dl (7-18) 11/05/20 21:05 Creatinine 1.07 mg/dl (0.6-1.2) 11/05/20 21:05 Est Cr Clr Drug Dosing 30.6 ml/min 11/05/20 21:05 Est GFR ( Amer) 53.3 11/05/20 21:05 Est GFR (Non-Af Amer) 46.0 11/05/20 21:05 BUN/Creatinine Ratio 14.8 (10-20) 11/05/20 21:05 Glucose 190 mg/dl (70-99) H 11/05/20 21:05 Calcium 9.7 mg/dl (8.5-10.1) 11/05/20 21:05 Total Bilirubin 0.5 mg/dl (0.2-1) 11/05/20 21:05 AST 17 U/L (15-37) 11/05/20 21:05 ALT 18 U/L (12-78) 11/05/20 21:05 Alkaline Phosphatase 103 U/L (45-117) 11/05/20 21:05 Troponin I 0.029 ng/ml (0-0.045) 11/05/20 21:05 Total Protein 7.8 gm/dl (6.4-8.2) 11/05/20 21:05 Albumin 4.1 gm/dl (3.4-5.0) 11/05/20 21:05 Globulin 3.7 gm/dl (2.5-4.0) 11/05/20 21:05 Albumin/Globulin Ratio 1.1 (0.9-2) 11/05/20 21:05 Lipase 84 U/L (73-393) 11/05/20 21:05 COVID-19 Eval Order CovFluRsv at [facility] 11/05/20 21:45 SARS-CoV-2 (PCR) NEGATIVE (Negative) 11/05/20 21:45 Influenza Type A (PCR) Negative (Neg) 11/05/20 21:45 Influenza Type B (PCR) Negative (Neg) 11/05/20 21:45 RSV (RT-PCR) Negative (Neg) 11/05/20 21:45 Diagnostic Findings Chest x-ray as per my interpretation congestion EKG as per my interpretation : Rate 110, sinus tachycardia, LAD, LAFB, LBBB Code Status & VTE Plan VTE Prophylaxis Plan VTE Prophylaxis will be ordered: Yes (1) ST elevation (STEMI) myocardial infarction Involved coronary artery: unspecified coronary artery Qualified Code(s): I21.3 - ST elevation (STEMI) myocardial infarction of unspecified site
--- NOTE | 2020-11-05 23:43 | Cardiac Catheterization ---
[facility] Data: Electromedical Equipment Technician Cardiac Status Clinical evaluation leading to the procedure CAD Presenation: STEMI Anginal Classification: CCS IV Heart Failure: No Cardiogenic Shock within 24 Hours: No Cardiac Arrest within 24 Hours: No Imaging Studies Past 6 Months: No Stress Studies Past 6 Months: No Diagnostic Physicians Name: Nahum Alexander MD Status: Emergency Closure Device Percutaneous Entry Location: Radial Closure Device: Radial Band Recommendations: PCI without planned CABG PCI Indication: Immediate PCI for STEMI Lesion Segment Name: mid LAD Culprit Artery: Yes Stenosis Prior to Rx (%): 100 Chronic Total Occlusion: No IVUS: No FFR: No Pre-Procedure FLAVIO Flow: 0 Previously Treated Lesion: No Lesion Complexity: Non-High/Non-C Lesion Length (mm): 20 Thrombus Present: Yes Bifurcation Lesion: Yes Guidewire Across Lesion: Stenosis Post-Procedure (%): 0 Post-Procedure FLAVIO Flow: 3 Devices(s) Deployed: Yes Yes Intraprocedure Events Significant Disection: No Perforation: No Cardiac Cath Procedure Full Procedure Date November 05, 2020 Pre-Procedure Diagnosis Pre-Procedure Diagnosis: STEMI AUC Score AUC Score: 9 Post-Procedure Diagnosis Post-Procedure Diagnosis: Severe CAD, Successful PCI and Normal Intracardiac Pressures Procedure(s) Performed Procedure(s) Performed: Coronary Angiography, Left Heart Cath and Drug Eluting Stent Code Enforcement Officer Nahum Alexander MD Woven Blind Loom Tender(s) Warner Estimated Blood Loss Estimated Blood Loss: 15 Medication(s) Medication(s): Clopidogrel, Fentanyl, Heparin, Lidocaine 1%, Nicardipine, Nitroglycerin, Norepinephrine and Versed Summary of Findings Indication: STEMI/Heart Alert Access: 6 Fr right radial artery Catheters: EBU 3.5 guide, JR4 Findings: LM -calcified, short, almost separate ostia LAD -heavily calcified, medium caliber, 30% diffuse proximal disease, 100% acute occlusion after takeoff of first diagonal. Circumflex -medium caliber, proximal irregularities, 50% ostial OM1, 50% proximal OM2 RCA -dominant, calcified proximally with luminal irregularities, 50% latemid stenosis, distal vessel without significant disease. LVEDP -12 -- PCI -- Antithrombotic therapy: Heparin, clopidogrel Procedure: Left main cannulated with EBU 3.5 guide Policeman 50 wire passed across lesion into distal vessel Mid LAD lesion predilated with 2.0 compliant balloon Dilated lesion stented with 2.75 x 28 mm Xience [place] drug-eluting stent Policeman 50 wire placed into second diagonal Stent post-dilated with 3.0 noncompliant balloon Ostium of D2 dilated through stent struts with 2.0 balloon IC vasodilators administered for spasm, sluggish LAD flow Post procedure FLAVIO 3 flow, stent well expanded with minimal residual stenosis in D2 and no apparent cardiac complications. Procedure complicated by transient hypotension requiring norepinephrine. Arterial Closure: TR band Summary: 1. Anterior STEMI/100% acute mid LAD occlusion 2. Moderate non-culprit coronary artery disease -50% latemid RCA 50% ostial OM1, 50% proximal OM2 3. Normal intracardiac filling pressure 4. Successful PCI of mid LAD with single drug-eluting stent (2.75 x 28 mm Xience; postdilated with 3.0 NC). -Angioplasty to ostium of jailed second diagonal with 2.0 balloon Recommendations: Admit to ICU for continued monitoring Loaded with clopidogrel 600 mg in Electromedical Equipment Technician Continue dual-antiplatelet therapy for at least 1 year. Trend troponins until peak, Check Echo Uptitrate beta-akil/YRN as BP allows High-dose statin Consult cardiac Rehab Hemodynamics Rest Ao:: 65/41 Final Ao: 114/67/95 LV: 111/12 Recommendations Recommendations: PCI without planned CABG Specimens Specimens: None Radiation Exposure (mGy) 913 Contrast (mls) 110 Fluids (cc crystalloids) Fluids (cc crystalloids): 80 Drains Drains: none Anesthesia moderate [id number] Procedural Complication(s) None Disposition ICU I attest to the content of the Intraoperative Record and any orders documented therein. Any exceptions are noted below. [facility] Card Cath Procedure Codes Cardiac Catheterization Procedure 1: Cardiovascular Cath Procedures: 88925 Coronaries and LHC (+/-LV) Moderate Sedation Procedure 1: Sedation/Anesthesia: 75027 Mod Sedation by the same physician;Init15 Min Child Age 5 & Up Procedure 2: Sedation/Anesthesia: 68287 Mod Sedation by the same physician; Ea [id number] Minutes Stenting Procedure 1: Cardiovascular Stent Procedures: 90012 Perc transluminal revascularization of acute sub/total occl, aMI PG Care Time/CCT Total # of Minutes Spent Total Time Spent with Patient: Total time spent is greater than 50% in coordination of care (as documented) at patient's floor/unit and/or counseling patient:
[2020-11-05] MEDS ORDERED: POTASSIUM CHLORIDE CRTAB 20 MEQ TABCR PO STA (23:58)
[2020-11-05] MEDS ORDERED: traMADol HCL 50 MG TABLET PO PRN (23:59)
[2020-11-06] MEDS ORDERED: PROMETHAZINE HCL 6.25 MG in SODIUM CHLORIDE 0.9% 50 ML IV PRN
[2020-11-06] MEDS ORDERED: ALBUT/IPRATROP 3MG/0.5MG NEB 3 ML VIAL NEB PRN (00:06)
[2020-11-06] MEDS ORDERED: DEXTROSE 50% 50 ML SYRINGE IV PRN (00:11)
[2020-11-06] MEDS ORDERED: CARBOHYDRATES FOR HYPOGLYCEMIA PO PRN (00:11)
[2020-11-06] MEDS ORDERED: GLUCOSE 40% GEL 15 GM TUBE PO PRN (00:11)
[2020-11-06] MEDS ORDERED: GLUCOSE 10 TABS/TUBE PO PRN (00:11)
[2020-11-06] MEDS ORDERED: GLUCAGON FOR INJ 1 MG VIAL SQ PRN (00:11)
[2020-11-06] MEDS ORDERED: ALBUT/IPRATROP 3MG/0.5MG NEB 3 ML VIAL ONE ×2 (00:13→00:35)
[2020-11-06] MEDS ORDERED: FUROSEMIDE 20 MG in SYRINGE 0 ML IV ONE ×2 (00:15→11:00)
[2020-11-06] MEDS ORDERED: ALBUT/IPRATROP 3MG/0.5MG NEB 3 ML VIAL NEB ONE (00:21)
--- NOTE | 2020-11-06 00:22 | Critical Care Consultation ---
Date of Consultation November 06, 2020 Assessment & Plan (1) Admitted to intensive care unit: Reason Critically Ill: 89-year-old female with acute anterior STEMI s/p PTCI w/ MARIETTA x1 to the LAD w/ angioplasty of the 2nd Diagonal requiring close hemodynamic monitoring s/p intervention. Respiratory distress in the setting of acute asthma exacerbation likley 2/2 aspiration event during vomiting. NEURO - * CAM ICU: NEGATIVE CARDIAC/VASCULAR - * Acute Anterior STEMI s/p PTCI w/ MARIETTA x1 to the LAD w/ angioplasty of the 2nd diagonal: * No chest pain s/p intervention. * ASCVD per cardiology reccs. * AM Echo. * Intracardiac pressures not noted to be elevated. * Agree w/ one time dose of Lasix given respiratory distress. * Persistent LBBB pre/post stenting. No new ST elevations noted. * HTN: * Continue home Rx as BP tolerates. * Already on YRN, BB, ASA. * EKG: Sinus tachycardia @ 110 bpm. LBBB (new today). No ST elevations noted. QTc 473 ms. * Monitor on telemetry. RESPIRATORY - * Respiratory Distress: * Presents post procedure w/ audible expiratory wheezing. On exam is noted to have decreased air movement w/ slight end expiratory wheeze - particularly in the PEREZ. * Orders placed for neb initially. * In conversation w/ interventionalist and patient, she was having wheezing upon arrival in the ED as well. This was not acute intraprocedurally. * Repots multiple episodes of emesis. Unsure if aspirated. * Orders placed for IV Solu-Medrol as well as hour long duoneb. * BiPap at bedside if patient's s/s persist. * CXR ordered and read by myself to show possible RML and possible LLL infiltrative changes. Does appear new/changed from prior. ??Degree of pulmonary edema as well. * Patient to receive dose of IV Lasix as well. * During [place], patient's accessory muscle use was greatly improved. Her audible wheezing improved as well. On exam, her lungs had increasing air movement, but unfortunately now w/ increasing wheezing. * Patient appears more comfortable at this time. Will add scheduled Solu- Medrol for the next few days. * Will cover w/ Unasyn for ??aspiration. * Thankfully, patient remains w/ SaO2s in the mid to high 90s on 3L NC throughout. GI/NUTRITION - * AHA diet. * Will avoid feeding the patient until we see improvement from a respiratory standpoint. RENAL/LYTES - * No significant electrolyte derangements. - * Esquievl in place. * Patient required Esquivel 2/2 need for Lasix and need for patient comfort s/p coronary intervention and current state of respiratory distress. * Hope for early removal. ENDO - * Borderline DM * BSGs per unit protocol. ISS --> gtt per unit policy. HEME - * Stable H&H ID - * Aspiration Pneumonitis: * CXR worsening from presenting films. * Degree of respiratory distress. * Will cover w/ Unasyn w/ hopes to transition to PO Augmentin as patient shows improvement. * No utility in PCT currently. Will consider adding to AM labs. LINES/IV ACCESS - * PIVs x2 * Esquivel DVT PROPHYLAXIS - * Hold s/p recent intervention w/ multiple Rx * SCDs I have personally spent 65 minutes of critical care time in the direct management of this patient. This is a life/limb threatening event. This includes time spent evaluating patient, direct bedside care, chart review, placing orders, interpretation of diagnostic studies, discussion with consultants, patie nt, and family members, as well as other required patient management activities. This time is exclusive of all separately billable procedures, and teaching time and separate from and in addition to any other critical care service time. Thank you for allowing us to participate in the care of this patient. Please refer to my attending physician's documentation for any further recommendations. (2) Acute [place]: (3) S/P PTCA (percutaneous transluminal coronary angioplasty): (4) S/P drug eluting coronary stent placement: (5) Asthma with exacerbation: (6) Respiratory distress: (7) Aspiration into airway: (8) Hypertension: (9) Hyperlipidemia: (10) Non Hodgkin's lymphoma: History of Present Illness Attending Physician: Josie Logan MD History of Present Illness Patient is an 89-year-old female with a significant past medical history of hypertension, hyperlipidemia, asthma, and non-Hodgkin's lymphoma. Patient presented to the emergency department via EMS with intense chest pain and pain between her bilateral shoulder blades. The patient had associated nausea and vomiting. She reports that she did vomit in route to the emergency department. Additionally, the patient was noted to be wheezing on presentation. A heart alert was called and the patient was sent emergently to the catheterization suite for an acute anterior STEMI with planned PTCI. Patient was found to have a 100% occluded mid LAD lesion. She received MARIETTA x1 to the LAD as well as a ngioplasty to the ostium of the second diagonal. Patient briefly required Levophed which was titrated off upon arriving in the ICU. Upon evaluation in the ICU, the patient is awake, alert, and oriented. The patient is having a degree of respiratory distress with audible wheezing noted on exam. She does report a history of asthma and states that she has felt similarly in the past, but never this extreme. She reports that her chest pain has completely resolved at this time, however she does report some residual mild discomfort between her shoulder blades. She reports waves of nausea for which she was previously treated with Zofran. Otherwise, the patient denies symptoms of headaches, dizziness, lightheadedness, blurred vision, double vision, slurred speech, facial droop, unilateral weakness/numbness, or abdominal pain. Allergies Allergy/AdvReac Type Severity Reaction Status Date / Time codeine Allergy Mild 0 Verified 11/05/20 22:15 aminosalicylic acid Allergy PT TAKES Verified 11/05/20 22:15 ASA AT HOME W/O PROBLEM Home Medications Medication Instructions Recorded Confirmed Type albuterol sulfate 2 puff INHALATION Q6 PRN 11/05/20 11/05/20 History alprazolam 0.25 mg PO HS PRN 11/05/20 11/05/20 History amlodipine 5 mg PO DAILY 11/05/20 11/05/20 History aspirin [Aspirin Low Dose] 81 mg PO DAILY 11/05/20 11/05/20 History fluticasone propion-salmeterol 1 inh INHALATION BID 11/05/20 11/05/20 History [Wixela Inhub] gabapentin 100 mg PO TID 11/05/20 11/05/20 History lisinopril 20 mg PO DAILY 11/05/20 11/05/20 History metoprolol succinate 50 mg PO DAILY 11/05/20 11/05/20 History multivitamin 1 tab PO DAILY 11/05/20 11/05/20 History Patient History Medical History Asthma with exacerbation Hyperlipidemia Hypertension Non Hodgkin's lymphoma Social History Smoking Status: Never smoker Hx Alcohol Use: No Hx Substance Use: No Preferred Language: Upper Sorbian Communication Ability: Effective Knitting Machine Tender Required: No Beliefs That Will Affect Care: None Current Living Situation: Alone Other Information That Helps Us Care for You: No Feels Safe at Home: Yes Safety Concerns: Feels Safe At This Time Assistive Devices: Glasses and Walker Review of Systems Review of Systems: A complete 10 point review of systems was reviewed with the patient with pertinent positives and negatives as per history of present illness. All else were negative. Physical Exam Physical Exam: VITAL SIGNS - Vital signs and nursing notes were reviewed. GENERAL - 89-year-old female appearing her stated age who is in mild respiratory distress. She is able to speak in near complete sentences. She does have audible wheeze with inspiration. The patient does exhibit work of breathing with accessory muscle use and "belly breathing". HEAD - NC/AT. EYES - PERRL with EOMI bilaterally. Sclera anicteric. EARS - No deformities of external structures noted on gross examination bilaterally. NOSE - Midline and without cyanosis. No epistaxis or purulent drainage noted. MOUTH/OROPHARYNX - Without perioral cyanosis. Buccal mucosa pink and dry. NECK - Neck with FROM. Supple to palpation. LUNGS -mild respiratory distress with tachypnea. Accessory muscle use and "belly breathing". Decreased air movement with slight expiratory wheeze appreciated in the LEFT upper lung malloy. No rales noted on exam. CARDIAC - RRR with S1/S2. No murmur, rubs, or gallops appreciated. No reproducible tenderness to palpation appreciated over the anterior chest wall. ABDOMEN - Abdominal contour flat without pulsations or visible masses. BS normoactive all four quadrants. No tenderness, palpable masses, hepatosplenomegaly, or ascites noted. EXTREMITIES - No clubbing or peripheral cyanosis. Pretibial edema present bilaterally. +3/5 radial and dorsalis pedis pulses palpated throughout. +5/5 strength noted in UE/LE bilaterally. NEUROLOGIC - Cranial nerves II through XII grossly intact. Sensory intact to light touch throughout. PSYCH - A&Ox3 and cooperates fully with examiner. Pt is very pleasant and interacts well with examiner despite current state of respiratory distress. Results & Data Results & Data ([facility]) Vital Signs (Past 12 Hours) Vital Signs Temp Pulse Pulse Resp BP BP Pulse Ox 11/05/20 23:30 36.4 C L 110 H 22 135/75 96 11/05/20 22:10 112 H 24 95 11/05/20 22:08 111 H 20 158/98 H 95 11/05/20 22:07 110 H 19 145/84 H 95 11/05/20 22:00 120 H 17 95 11/05/20 21:50 112 H 16 11/05/20 21:40 112 H 18 92 11/05/20 21:30 105 H 20 92 11/05/20 21:20 110 H 20 92 11/05/20 21:17 121 H 21 93 11/05/20 21:04 92 11/05/20 20:54 36.7 C 108 H 20 168/106 H 90 11/05/20 20:52 106 H 16 168/106 H 93 Coding Level of Care Code Critical Care 1st 30-74 mins Diagnoses Admitted to intensive care unit Z78.9 Acute [place] I21.9 S/P PTCA (percutaneous transluminal coronary angioplasty) Z98.61 S/P drug eluting coronary stent placement Z95.5 Asthma with exacerbation J45.901 Respiratory distress R06.03 Aspiration into airway T17.908A Hypertension I10 Hyperlipidemia E78.5 Non Hodgkin's lymphoma C85.90 Time Spent (min) 65
[2020-11-06] MEDS ORDERED: methylPREDNISolone 40 MG in SYRINGE 0 ML IV ONE (00:30)
[2020-11-06] MEDS ORDERED: ONDANSETRON INJ 2 MG/ML 2 ML VIAL ONE (00:30)
[2020-11-06 00:34] LABS: Magnesium 2.1 mg/dl (1.8-2.4); Thyroid Stimulating Hormone 4.66 uIu/ml (0.300-4.500)
[2020-11-06] MEDS: INSULIN ASPART 100 UNITS/ML 3 ML PEN SC SCH ×5 (00:40→21:31)
[2020-11-06] MEDS ORDERED: INSULIN GLARGINE SOLOSTAR 100 UNITS/ML 3 ML PEN SC STA (01:03)
[2020-11-06] MEDS: AMPICILLIN/SULBACTAM SOD 3,000 MG in 0.9 % SODIUM CHLORIDE 100 ML IV SCH ×2 (01:22→08:58)
[2020-11-06 02:14] LABS: Appearance Urine Clear (Clear); Bacteria Urine Automated Negative (Negative); Bilirubin Urine Negative (Negative); Blood Urine Trace (Negative); Color Urine Yellow; Glucose Urine UA Negative (Negative); Ketones Urine Trace (Negative); Leukocyte Esterase Urine Negative (Negative); Nitrite Urine Negative (Negative); Protein Urine Negative (Negative); RBC Urine Automated 0-4 /hpf (0-4); Specific Gravity Urine 1.024 (1.000-1.030); Urobilinogen Urine Negative (Negative)
[2020-11-06 05:00] LABS: Hematocrit (blood only) 44.5 % (37-47); Mean Corpuscular Hemoglobin 31.3 pg (25-34); Mean Corpuscular Hgb Conc 33.7 g/dL (32-36); Mean Corpuscular Volume 92.9 fL (80-100); Mean Platelet Volume 9.2 fL (7.4-10.4); Platelet Count 283 K/uL (130-400); RDW Coefficient of Variation 13.2 % (11.5-14.5); RDW Standard Deviation 45.2 fL (36.4-46.3); Red Blood Count 4.79 M/uL (4.2-5.4); White Blood Count 22.26 K/uL (4.8-10.8)
[2020-11-06 05:24] LABS: Basophils # (auto) 0.01 K/uL (0-0.2); Eosinophils # (auto) 0.01 K/uL (0-0.5); Immature Granulocytes # (auto) 0.08 K/uL (0.00-0.02); Immature Granulocytes % (auto) 0.4 %; Lymphocytes # (auto) 0.96 K/uL (1.2-3.4); Lymphocytes % (auto) 4.3 %; Monocytes # (auto) 0.45 K/uL (0.11-0.59); Neutrophils # (auto) 20.75 K/uL (1.4-6.5); Neutrophils % (auto) 93.3 %
[2020-11-06 05:34] LABS: Blood Urea Nitrogen 15 mg/dl (7-18); Calcium 8.6 mg/dl (8.5-10.1); Carbon Dioxide 26 mmol/L (21-32); Chloride 103 mmol/L (98-107); Creatinine Clr Calc Pharmacy 30.6 ml/min; Est GFR (African American) 53.9; Est GFR (Non-African American) 46.5; Glucose 210 mg/dl (70-99); Potassium 3.3 mmol/L (3.5-5.1); Sodium 138 mmol/L (136-145)
[2020-11-06 06:00] LABS: Chol HDL Ratio 4; Cholesterol 202 mg/dl (0-200); HDL Cholesterol 49 mg/dl; LDL Cholesterol Direct 130 mg/dl; Magnesium 1.7 mg/dl (1.8-2.4); Phosphorus 3.6 mg/dl (2.5-4.9); Triglycerides 135 mg/dl (0-150); VLDL Cholesterol 27 mg/dl
[2020-11-06] MEDS ORDERED: methylPREDNISolone 40 MG in SYRINGE 0 ML IV SCH (06:00)
[2020-11-06 06:09] LABS: Estimated Average Glucose 134 mg/dl; Hemoglobin A1C 6.3 % (4.5-5.6)
--- NOTE | 2020-11-06 06:50 | XRay Report ---
XR chest 1V portable HISTORY: 89 years-old Female sob/wheezing acute shortness of breath with wheezing COMPARISON: Chest radiograph 11/05/2020, chest CT 08/11/2013 TECHNIQUE: Portable AP view of the chest FINDINGS: Cardiac silhouette is mildly enlarged. There is bilateral interstitial coarsening. Mild progression o f ill-defined bilateral airspace opacities, most pronounced in the right midlung and lung bases. No p neumothorax. Trace pleural effusions. Pulmonary vascular congestion. Degenerative changes of the shou lders and spine. IMPRESSION: 1. Cardiomegaly with pulmonary vascular congestion and progressively worsened bilateral mixed interst itial and alveolar opacities suggestive of pulmonary edema versus pneumonia. 2. Trace pleural effusions. ACT 112: Negative or not required by law. The above report was generated using voice recognition software. It may contain grammatical, syntax o r spelling errors. Electronically signed by: Dex Black M.D. 11/06/2020 6:48 AM
[2020-11-06] MEDS: GABAPENTIN 100 MG CAP PO SCH ×3 (08:00→22:21)
[2020-11-06] MEDS: CLOPIDOGREL BISULFATE 75 MG TAB PO SCH (08:00)
[2020-11-06] MEDS: ASPIRIN 81 MG ECTAB PO SCH (08:00)
[2020-11-06] MEDS: ATORVASTATIN 40 MG TAB PO SCH (08:01)
--- NOTE | 2020-11-06 08:13 | XRay Report ---
XR chest 1V portable CLINICAL HISTORY: Chest Pain COMPARISON STUDY: Chest radiograph August 09, 2013. Chest CT August 11, 2013. FINDINGS: There are trace bilateral pleural effusions. There is no pneumothorax. Mild pulmonary edema is present. Cardiac silhouette is at the upper limits of normal for size. There is no lobar consolid ation. IMPRESSION: 1. Interstitial thickening suggestive of mild pulmonary edema. 2. Trace bilateral pleural effusions. ACT 112: Negative or not required by law. Electronically signed by: Ricco Swanson M.D. 11/06/2020 8:12 AM
[2020-11-06] MEDS ORDERED: POTASSIUM CHLORIDE PWD 20 MEQ PACK PO ONE (08:30)
[2020-11-06] MEDS: MAGNESIUM SULFATE / D5W 1 GM/100 ML BAG IV SCH ×2 (08:58→11:01)
[2020-11-06] MEDS: FLUTICASONE/VILANTEROL 100/25MCG 14 PUFFS/INHALER INH SCH (08:59)
[2020-11-06] MEDS ORDERED: ASPIRIN 81 MG ECTAB PO SCH (09:00)
[2020-11-06] MEDS ORDERED: METOPROLOL TARTRATE 25 MG TAB PO SCH ×2 (09:00→14:00)
[2020-11-06] MEDS ORDERED: ENOXAPARIN INJ 30 MG/0.3 ML SYR SQ SCH (09:00)
[2020-11-06] MEDS: lisinopril 5 MG TAB PO SCH (09:01)
[2020-11-06] MEDS: MULTIVITAMIN TAB PO SCH (09:01)
--- NOTE | 2020-11-06 09:04 | XRay Report ---
XR chest 1V portable CLINICAL HISTORY: f/u COMPARISON STUDY: Chest radiograph November 06, 2020 at 12:30 AM. FINDINGS: Lung volumes are normal. There are trace bilateral pleural effusions. There is no pneumotho rax. Interstitial thickening and bilateral opacities have improved since chest radiograph performed e guslier today. Cardiomediastinal silhouette is stable. IMPRESSION: 1. Interval improvement in interstitial thickening and bilateral opacities. The findings favor pulmon bruce edema. 2. Trace bilateral pleural effusions . ACT 112: Negative or not required by law. Electronically signed by: Ricco Swanson M.D. 11/06/2020 9:03 AM
--- NOTE | 2020-11-06 10:19 | Critical Care Progress Note ---
Date of Service November 06, 2020 Assessment & Plan (1) Admitted to intensive care unit: Reason Critically Ill: 89-year-old female with acute anterior STEMI s/p PTCI w/ MARIETTA x1 to the LAD w/ angioplasty of the 2nd Diagonal requiring close hemodynamic monitoring s/p intervention. Had respiratory distress in the setting of acute asthma exacerbation likely 2/2 aspiration event during vomiting. NEURO - CAM ICU: NEGATIVE No current neurological concerns CARDIAC/VASCULAR - Acute Anterior STEMI s/p PTCI w/ MARIETTA x1 to the LAD w/ angioplasty of the 2nd diagonal: No chest pain s/p intervention. Continue ASA, Plavix Lopressor 12.5 mg switched from BID to q8h Echo today showing severe hypokinesis to akinesis of left ventricle at mid and apical levels, severely reduced left ventricular systolic function, and EF of 29% Patient may ambulate OOB w/ assistance Cardiology following, appreciate input HTN: Continue home Rx as BP tolerates. Continue lisinopril Lopressor modified as above RESPIRATORY - Respiratory Distress/Asthma: Presented post procedure w/ audible expiratory wheezing. On exam is noted to have decreased air movement w/ slight end expiratory wheeze - particularly in the PEREZ. CXR with findings favoring pulmonary edema and has trace bilateral pleural effusions Patient saturating well on 3L nasal cannula, no longer in distress IV Solu-Medrol discontinued Received Lasix 20mg IV x1 dose in ED Additional Lasix 20mg today per cardiology Unasyn discontinued today and will be transitioned to Augmentin orally for 3 days to cover respiratory pathogens Continue scheduled Breo Ellipta inhaler Duonebs prn GI/NUTRITION - AHA diet. RENAL/LYTES - Magnesium and Potassium repleted Replete lytes as needed - Alvin out today ENDO - Borderline DM BSGs per unit protocol. ISS --> gtt per unit policy. HEME - Stable H&H ID - Aspiration Pneumonitis: Transition from Unasyn to PO Augmentin today for total of 3 days Procalcitonin negative LINES/IV ACCESS - PIVs x2 Esquivel discontinued today DVT PROPHYLAXIS - Hold s/p recent intervention w/ multiple Rx SCDs Thank you for allowing us to be part of this patient's care. Please refer to Dr. Barr's documentation for any further recommendations. (2) ST elevation (STEMI) myocardial infarction: (3) Respiratory distress: (4) S/P drug eluting coronary stent placement: (5) S/P PTCA (percutaneous transluminal coronary angioplasty): (6) Asthma with exacerbation: (7) Hyperlipidemia: (8) Hypertension: Admission and Anticipated Discharge Date Admission Date: November 05, 2020 Supervising Physician Co-Signing Physician Notes Patient seen and examined. Discussed with family practice resident and agree with assessment plan as noted. Discussed on multidisciplinary rounds. Patient is doing well clinically. I suspect that her wheezing may have been of a cardiac nature. This was discussed with cardiology and they agreed. We will discontinue steroids. Continue inhalers. Given the potential aspiration it seems reasonable to continue antibiotics for at least 3 days and she will be transitioned to oral Augmentin. Should she develop increasing respiratory issues or leukocytosis or fever, repeat chest x-ray would be warranted. We will uptitrate her beta-akil. Additional recommendations per cardiology and primary service. We will sign off at this point in time. Feel free to contact us if we can be of additional assistance. Subjective Patient reports she feels much better this morning. Feels her breathing is much improved and denies chest pain, nausea, or vomiting. Review of Systems Review of Systems: All systems reviewed & are unremarkable except as noted in Subjective Physical Exam Constitutional: WD/WN, vitals as above comfortable; no acute distress Eyes: PERRL, conjunctivae normal, anicteric sclerae ENMT: external ear and nose normal, oropharynx normal Neck: normal visual inspection Respiratory: normal respiratory effort; no respiratory distress Auscultation: + wheezes (mild expiratory wheeze noticed at RUL); no crackles and no rhonchi Cardiovascular: RRR, no murmur, no edema Heart Sounds: normal S1 and normal S2 Results & Data Results & Data ([facility]) Vital Signs (Past 12 Hours) Vital Signs Temp Pulse Pulse Resp BP BP Pulse Ox 11/06/20 09:00 110 H 20 109/67 97 11/06/20 08:00 128 H 19 114/70 96 11/06/20 07:00 119 H 21 118/69 97 11/06/20 06:46 113 H 19 103/63 96 11/06/20 02:16 111 H 22 90 11/06/20 02:15 110 H 22 114/72 90 11/06/20 02:01 115 H 21 94 11/06/20 02:00 116 H 20 115/70 93 11/06/20 01:46 114 H 21 99 11/06/20 01:45 112 H 23 118/79 99 11/06/20 01:31 104 H 23 98 11/06/20 01:30 105 H 23 116/71 98 11/06/20 01:16 104 H 25 H 98 11/06/20 01:15 105 H 23 111/74 98 11/06/20 01:01 105 H 25 H 118/94 97 11/06/20 01:00 105 H 24 98 11/06/20 00:50 109 H 110 H 20 95 11/06/20 00:45 105 H 20 119/83 97 11/06/20 00:40 107 H 21 97 11/06/20 00:37 106 H 18 97 11/06/20 00:31 108 H 24 94 11/06/20 00:30 106 H 24 121/85 96 11/06/20 00:00 110 H 11/05/20 23:30 36.4 C L 110 H 22 135/75 96 Pulse Ox 11/06/20 09:00 11/06/20 08:00 11/06/20 07:00 11/06/20 06:46 11/06/20 02:16 11/06/20 02:15 11/06/20 02:01 11/06/20 02:00 11/06/20 01:46 11/06/20 01:45 11/06/20 01:31 11/06/20 01:30 11/06/20 01:16 11/06/20 01:15 11/06/20 01:01 11/06/20 01:00 11/06/20 00:50 11/06/20 00:45 11/06/20 00:40 11/06/20 00:37 11/06/20 00:31 11/06/20 00:30 11/06/20 00:00 95 11/05/20 23:30 Resident Activity Tracking Resident Involvement: Resident Care Provided Care Provided: Adult Hospital Medicine (1) ST elevation (STEMI) myocardial infarction Involved coronary artery: unspecified coronary artery Qualified Code(s): I21.3 - ST elevation (STEMI) myocardial infarction of unspecified site
--- NOTE | 2020-11-06 10:40 | Cardiology Consultation ---
Date of Consultation November 06, 2020 Assessment & Plan (1) ST elevation (STEMI) myocardial infarction: s/p PCI, MARIETTA to LAD. Continue ASA , plavix. Agree with metoprolol. (2) Acute HFrEF (heart failure with reduced ejection fraction): Large new LAD territory wall motion abnormality. LVEF 29%. Received lasix overnight. Will order and additional dose of potassium chloride and lasix 20 mg IV x 1 now. Continue lisinopril. (3) LBBB (left bundle branch block): chronic. Continue cautious metoprolol tartrate 12.5 three times per day (4) Nonsustained ventricular tachycardia: 17 beat run 11/06/20 at 2:38 am. 5 beat run 11/06/20 at 9:56. Continue metoprolol. (5) Aspiration into airway: Elevated WBC due to steroid which have been stopped. Agree with 3 day course of antibiotics. (6) Hyperlipidemia: History of Present Illness Attending Physician: Meenakshi Kim, DO History of Present Illness Deisi Fragoso is an 89 year old female seen in cardiology consultation per the request of Dr Alexander and Dr Kim to assume cardiology care. Patient lives independently with family next door. She presented with sever chest and back pain. Emergent cardiac catheterization performed last evening as per "Heart Alert" protocol revealed 100% acute mid LAD occlusion. Residual non-culprit 50% late mid RCA, 50% ostial OM1, 50% proximal OM2. Allergies Allergy/AdvReac Type Severity Reaction Status Date / Time codeine Allergy Mild 0 Verified 11/05/20 22:15 aminosalicylic acid Allergy PT TAKES Verified 11/05/20 22:15 ASA AT HOME W/O PROBLEM Home Medications Medication Instructions Recorded Confirmed Type albuterol sulfate 2 puff INHALATION Q6 PRN 11/05/20 11/05/20 History alprazolam 0.25 mg PO HS PRN 11/05/20 11/05/20 History amlodipine 5 mg PO DAILY 11/05/20 11/05/20 History aspirin [Aspirin Low Dose] 81 mg PO DAILY 11/05/20 11/05/20 History fluticasone propion-salmeterol 1 inh INHALATION BID 11/05/20 11/05/20 History [Wixela Inhub] gabapentin 100 mg PO TID 11/05/20 11/05/20 History lisinopril 20 mg PO DAILY 11/05/20 11/05/20 History metoprolol succinate 50 mg PO DAILY 11/05/20 11/05/20 History multivitamin 1 tab PO DAILY 11/05/20 11/05/20 History Patient History Medical History Asthma with exacerbation Hyperlipidemia Hypertension Non Hodgkin's lymphoma Social History Smoking Status: Never smoker Hx Alcohol Use: No Hx Substance Use: No Preferred Language: Bhutanese Communication Ability: Effective Demo Coordinator Required: No Beliefs That Will Affect Care: None Current Living Situation: Alone Other Information That Helps Us Care for You: No Feels Safe at Home: Yes Safety Concerns: Feels Safe At This Time Assistive Devices: Glasses and Walker Review of Systems Review of Systems: All systems reviewed & are unremarkable except as noted in HPI & below Physical Exam Physical Exam: Temp Pulse Resp BP Pulse Ox 36.4 C L 110 H 20 109/67 97 11/05/20 23:30 11/06/20 09:00 11/06/20 09:00 11/06/20 09:00 11/06/20 09:00 Constitutional: WD/WN, vitals as above Respiratory: Auscultation: + crackles; no wheezes Cardiovascular: RRR, no murmur, no edema radial access , clean dry and intact Gastrointestinal (Abdomen): normal bowel sounds, soft, nontender, no hepatosplenomegaly Neurologic: PERRL, EOMI, accommodation nl, no face palsy, no dysarthria Results & Data ([facility]) Vital Signs (Past 12 Hours) Vital Signs Temp Pulse Pulse Resp BP BP Pulse Ox 11/06/20 09:00 110 H 20 109/67 97 11/06/20 08:00 128 H 19 114/70 96 11/06/20 07:00 119 H 21 118/69 97 11/06/20 06:46 113 H 19 103/63 96 11/06/20 02:16 111 H 22 90 11/06/20 02:15 110 H 22 114/72 90 11/06/20 02:01 115 H 21 94 11/06/20 02:00 116 H 20 115/70 93 11/06/20 01:46 114 H 21 99 11/06/20 01:45 112 H 23 118/79 99 11/06/20 01:31 104 H 23 98 11/06/20 01:30 105 H 23 116/71 98 11/06/20 01:16 104 H 25 H 98 11/06/20 01:15 105 H 23 111/74 98 11/06/20 01:01 105 H 25 H 118/94 97 11/06/20 01:00 105 H 24 98 11/06/20 00:50 109 H 110 H 20 95 11/06/20 00:45 105 H 20 119/83 97 11/06/20 00:40 107 H 21 97 11/06/20 00:37 106 H 18 97 11/06/20 00:31 108 H 24 94 11/06/20 00:30 106 H 24 121/85 96 11/06/20 00:00 110 H 11/05/20 23:30 36.4 C L 110 H 22 135/75 96 Pulse Ox 11/06/20 09:00 11/06/20 08:00 11/06/20 07:00 11/06/20 06:46 11/06/20 02:16 11/06/20 02:15 11/06/20 02:01 11/06/20 02:00 11/06/20 01:46 11/06/20 01:45 11/06/20 01:31 11/06/20 01:30 11/06/20 01:16 11/06/20 01:15 11/06/20 01:01 11/06/20 01:00 11/06/20 00:50 11/06/20 00:45 11/06/20 00:40 11/06/20 00:37 11/06/20 00:31 11/06/20 00:30 11/06/20 00:00 95 11/05/20 23:30 Laboratory Results Cardiac Enzymes 11/05/20 11/06/20 Range/Units 21:05 04:13 AST 17 (15-37) U/L Troponin I 0.029 140.000 H* (0-0.045) ng/ml Lipids 11/06/20 Range/Units 04:13 Triglycerides 135 (0-150) mg/dl Cholesterol 202 H (0-200) mg/dl HDL Cholesterol 49 mg/dl Cholesterol/HDL Ratio 4 CBC 11/05/20 11/06/20 Range/Units 21:05 04:13 WBC 13.24 H 22.26 H (4.8-10.8) K/uL RBC 4.78 4.79 (4.2-5.4) M/uL Hgb 15.3 15.0 (12.0-16.0) g/dL Hct 44.6 44.5 (37-47) % Plt Count 301 283 (130-400) K/uL Neut # (Auto) 8.70 H 20.75 H (1.4-6.5) K/uL Lymph # (Auto) 3.03 0.96 L (1.2-3.4) K/uL [place] # (Auto) 1.04 H 0.45 (0.11-0.59) K/uL Eos # (Auto) 0.39 0.01 (0-0.5) K/uL Baso # (Auto) 0.04 0.01 (0-0.2) K/uL Comprehensive Metabolic Panel 11/05/20 11/06/20 Range/Units 21:05 04:13 Sodium 136 138 (136-145) mmol/L Potassium 3.7 3.3 L (3.5-5.1) mmol/L Chloride 101 103 (98-107) mmol/L Carbon Dioxide 27 26 (21-32) mmol/L BUN 16 15 (7-18) mg/dl Creatinine 1.07 1.06 (0.6-1.2) mg/dl Glucose 190 H 210 H (70-99) mg/dl Calcium 9.7 8.6 (8.5-10.1) mg/dl AST 17 (15-37) U/L ALT 18 (12-78) U/L Alkaline Phosphatase 103 (45-117) U/L Total Protein 7.8 (6.4-8.2) gm/dl Albumin 4.1 (3.4-5.0) gm/dl Intake and Output 11/05/20 11/06/20 11/06/20 22:59 06:59 14:59 Intake Total 30 108 / 108 Output Total 815 / 815 Balance -785 / -785 108 / 108 Intake: IV 108 / 108 Unasyn 3,000 mg In Sodium 108 / 108 Chloride 100 ml @ 200 mls/hr IV Q6H [facility] Rx#:[id number] Oral Output: Urine Amount (Catheter) 815 / 815 Esquivel/Indwelling 815 / 815 Other: Weight 67.7 kg 66.6 kg Weight Measurement Method [facility] Diagnostic Findings EKG 11/05/20 20:54, Sinus tachycardia at 108, LBBB, anterior and lateral ST elevation. Repeat at 23:[address] at 110, LBBB, QRS 130, improvement, but has residual lateral ST elevation. CXR: trace pleural effusions Echo: large LAD wall motiona abnormality with akinesis of the segments, LVEF 29% (1) ST elevation (STEMI) myocardial infarction Involved coronary artery: unspecified coronary artery Qualified Code(s): I21.3 - ST elevation (STEMI) myocardial infarction of unspecified site
[2020-11-06] MEDS ORDERED: POTASSIUM CHLORIDE CRTAB 20 MEQ TABCR PO STA (10:41)
[2020-11-06] MEDS ORDERED: POTASSIUM CHLORIDE 20 MEQ/15 ML UDC PO ONE (11:00)
--- NOTE | 2020-11-06 11:41 | Billing Data ---
Date of Service November 06, 2020 Coding Level of Care Code 14874 Subseq Hosp Care Lvl 3
--- NOTE | 2020-11-06 15:07 | Electrocardiogram Report ---
Test Reason : Blood Pressure : / mmHG Vent. Rate : 108 BPM Atrial Rate : 108 BPM P-R Int : 192 ms QRS Dur : 130 ms QT Int : 374 ms P-R-T Axes : 072 -32 076 degrees QTc Int : 501 ms Sinus tachycardia with Premature atrial complexes Left axis deviation Left bundle branch block Abnormal ECG When compared with ECG of 09-AUG-2013 09:29, Premature atrial complexes are now Present Left bundle branch block is now Present Confirmed by Rodrigo Ty ([id number]) on 11/06/2020 3:06:48 PM Referred By: REFERRED SELF Confirmed By:Rodrigo Ty
--- NOTE | 2020-11-06 15:09 | Electrocardiogram Report ---
Test Reason : Blood Pressure : / mmHG Vent. Rate : 111 BPM Atrial Rate : 111 BPM P-R Int : 172 ms QRS Dur : 130 ms QT Int : 362 ms P-R-T Axes : 060 -22 077 degrees QTc Int : 492 ms Sinus tachycardia Left bundle branch block Abnormal ECG When compared with ECG of 05-NOV-2020 20:54, (unconfirmed) Premature atrial complexes are no longer Present Confirmed by Rodrigo Ty ([id number]) on 11/06/2020 3:08:57 PM Referred By: REFERRED SELF Confirmed By:Rodrigo Ty
[2020-11-06] MEDS: AMOXICILLIN/CLAVULANATE 500 MG TAB PO SCH ×3 (15:38→22:46)
--- NOTE | 2020-11-06 16:27 | Electrocardiogram Report ---
Test Reason : Blood Pressure : / mmHG Vent. Rate : 110 BPM Atrial Rate : 110 BPM P-R Int : 172 ms QRS Dur : 130 ms QT Int : 350 ms P-R-T Axes : 074 -16 096 degrees QTc Int : 473 ms Sinus tachycardia Left bundle branch block Abnormal ECG When compared with ECG of 05-NOV-2020 22:07, No significant change Confirmed by Rodrigo Ty ([id number]) on 11/06/2020 4:27:47 PM Referred By: REFERRED SELF Confirmed By:Rodrigo Ty
--- NOTE | 2020-11-06 17:32 | Hospitalist Progress Note ---
Date of Service November 06, 2020 Assessment & Plan (1) ST elevation (STEMI) myocardial infarction: Cath procedure overnight with stent placed in LAD lesion. She is improved today. Cont medical management per Cardiology including ASA, Plavix, Lipitor 40mg daily, lisinopril 5mg daily and metoprolol. With resting heart rate in the low 100s will uptitrate beta akil to 25mg PO TID. Transfer to PCU status. (2) Acute HFrEF (heart failure with reduced ejection fraction): STEMI with reduced ejection fraction to roughly 30%. Lasix given overnight and again this morning. Continue lisinopril and other guideline directed medical therapy per cardiology recommendations. Breathing has significantly improved. (3) Nonsustained ventricular tachycardia: Likely a result of recent cardiac insult and ongoing poor ejection fraction. Potassium was also lower this morning. Continue to keep potassium around 4 and magnesium over 2. Continue guideline directed medical therapy. Continue telemetry monitoring. Beta-akil titrated upward to 25 mg p.o. 3 times daily. (4) Aspiration into airway: She had significant vomiting in the ambulance prior to arrival and miller bsequently recovered in the ICU with some respiratory distress. She was thought to have an acute asthma exacerbation and did receive some steroids and she received some Lasix. Some audible wheezing was present last night which is now resolved. She also received an hour-long DuoNeb in the ICU postprocedure. BiPAP was ordered but not needed, and she is currently oxygenating in the mid 90s on 2 L/min of oxygen supplementation. Augmentin for short course per Pulmonology (5) Hypertension: Controlled on current therapies. (6) Metabolic syndrome: Admitted with hyperglycemia-A1C 6.3. Cont carb coverage and correction factor with Novolog. Stop Lantus at this time. (7) DVT prophylaxis: Lovenox Full code Disposition-to home when medically stable. Downgrade to PCU status DO [facility] Hospitalist Admission and Anticipated Discharge Date Admission Date: November 05, 2020 Subjective 89 yo F s/p STEMI overnight denies current chest pain tachycardic some NSVT overnight on telemetry denies SOB or respiratory symptoms. Tolerating PO Was up and OOB to chair today. Review of Systems Review of Systems: All systems reviewed & are unremarkable except as noted in Subjective Physical Exam Physical Exam: CONSTITUTIONAL: WNWD, vitals as above, generally well- appearing EYES: normal conjunctivae, no scleral icterus ENT: external ear and nose normal, MMM RESPIRATORY: clear to auscultation bilaterally, no crackles, rales or wheezes, normal respiratory effort CARDIOVASCULAR: regular rate and rhythm, S1 and 2 heard without murmurs, gallops or rubs, no JVD, no peripheral edema GASTROINTESTINAL: soft, nontender, nondistended, no guarding. MUSCULOSKELETAL: strength 5/5 throughout, head is normocephalic and atraumatic SKIN: warm and dry NEUROLOGIC: CN 2-12 grossly intact, no sensory deficit, normal cognition, normal speech PSYCHIATRIC: alert cooperative and oriented to person, place and time. Results & Data Results & Data ([facility]) Vital Signs (Past 12 Hours) Vital Signs Temp Pulse Resp BP Pulse Ox Pulse Ox 11/06/20 17:01 107 H 24 115/69 94 11/06/20 16:37 36.7 C 11/06/20 16:00 109 H 22 144/93 H 95 11/06/20 15:00 101 H 19 116/73 93 11/06/20 14:00 117 H 20 129/82 96 11/06/20 13:00 103 H 21 113/78 96 11/06/20 12:00 36.7 C 107 H 23 122/73 92 11/06/20 11:00 101 H 21 108/73 95 11/06/20 09:00 110 H 20 109/67 97 11/06/20 08:00 36.6 C 128 H 19 114/70 96 97 11/06/20 07:00 119 H 21 118/69 97 11/06/20 06:46 113 H 19 103/63 96 Laboratory Results Short CBC 11/05/20 11/06/20 Range/Units 21:05 04:13 WBC 13.24 H 22.26 H (4.8-10.8) K/uL Hgb 15.3 15.0 (12.0-16.0) g/dL Hct 44.6 44.5 (37-47) % Plt Count 301 283 (130-400) K/uL BMP 11/05/20 11/06/20 21:05 04:13 Sodium 136 138 Potassium 3.7 3.3 L Chloride 101 103 Carbon Dioxide 27 26 BUN 16 15 Creatinine 1.07 1.06 Glucose 190 H 210 H Calcium 9.7 8.6 Cardiac Enzymes 11/05/20 11/06/20 11/06/20 Range/Units 21:05 04:13 11:37 Troponin I 0.029 140.000 H* 109.000 H* (0-0.045) ng/ml Liver Function 11/05/20 Range/Units 21:05 Total Bilirubin 0.5 (0.2-1) mg/dl AST 17 (15-37) U/L ALT 18 (12-78) U/L Alkaline Phosphatase 103 (45-117) U/L Albumin 4.1 (3.4-5.0) gm/dl Urine 11/06/20 Range/Units 02:00 Urine Color Yellow Urine Appearance Clear (Clear) Urine pH 6.0 (4.5-7.5) Ur Specific [place] 1.024 (1.000-1.030) Urine Protein Negative (Negative) Urine Glucose (UA) Negative (Negative) Medications Administered Current Inpatient Medications Acetaminophen (Acetaminophen 325 Mg Tab) 650 mg PO Q4H PRN PRN Reason: MILD Pain (Scale 1,2,3) Stop: 12/05/20 23:30 Albuterol (Albut/Ipratrop 3mg/0.5mg Neb 3 Ml Vial) 3 ml NEB Q4R PRN PRN Reason: Wheezing Stop: 12/06/20 00:05 Last Admin: 11/06/20 00:31 Dose: 3 ml Documented by: Alprazolam (Alprazolam 0.25 Mg Tablet) 0.25 mg PO HS PRN PRN Reason: Sleep Stop: 12/05/20 23:54 Amoxicillin/Clavulanate Potassium (Amoxicillin/Clavulanate 500 Mg Tab) 1 tab PO Q8 [facility] Stop: 11/08/20 22:01 Last Admin: 11/06/20 15:38 Dose: 1 tab Documented by: Aspirin (Aspirin 81 Mg Ectab) [address] [facility] Stop: 12/06/20 08:59 Last Admin: 11/06/20 08:00 Dose: 81 mg Documented by: Atorvastatin Calcium (Atorvastatin 40 Mg Tab) [address] [facility] Stop: 12/06/20 08:59 Last Admin: 11/06/20 08:01 Dose: 40 mg Documented by: Clopidogrel Bisulfate (Clopidogrel Bisulfate 75 Mg Tab) [address] [facility] Stop: 12/06/20 08:59 Last Admin: 11/06/20 08:00 Dose: 75 mg Documented by: Dextrose (Dextrose 50% 50 Ml Syringe) 25 - 50 ml IV UD PRN; Protocol PRN Reason: Hypoglycemia Protocol Stop: 12/06/20 00:10 Enoxaparin Sodium (Enoxaparin Inj 30 Mg/0.3 Ml Syr) 30 mg SQ QAM [facility] Stop: 12/06/20 08:59 Last Admin: 11/06/20 09:00 Dose: 30 mg Documented by: Fluticasone/Vilanterol (Fluticasone/Vilanterol 100/25mcg 14 Puffs/Inhaler) 1 puffs INH DAILY YOEL Stop: 12/06/20 08:59 Last Admin: 11/06/20 08:59 Dose: 1 puffs Documented by: Gabapentin (Gabapentin 100 Mg Cap) 100 mg PO TID [facility] Stop: 12/06/20 08:59 Last Admin: 11/06/20 15:38 Dose: 100 mg Documented by: Glucagon (Glucagon For Inj 1 Mg Vial) 1 mg SQ UD PRN; Protocol PRN Reason: Hypoglycemia Protocol Stop: 12/06/20 00:10 Glucose (Glucose 10 Tabs/Tube) 4 - 8 tabs PO UD PRN; Protocol PRN Reason: Hypoglycemia Protocol Stop: 12/06/20 00:10 Glucose (Glucose 40% Gel 15 Gm Tube) 15 - 30 gm PO UD PRN; Protocol PRN Reason: Hypoglycemia Protocol Stop: 12/06/20 00:10 Insulin Aspart (Insulin Aspart 100 Units/Ml 3 Ml Pen) 0 units SC ACHS [facility] Stop: 12/06/20 00:14 Last Admin: 11/06/20 11:44 Dose: 3 units Documented by: Insulin Glargine (Insulin Glargine Solostar 100 Units/Ml 3 Ml Pen) 5 units SC HS [facility] Stop: 12/06/20 20:59 Lisinopril (Lisinopril 5 Mg Tab) 5 mg PO QAM [facility] Stop: 12/06/20 08:59 Last Admin: 11/06/20 09:01 Dose: 5 mg Documented by: Metoprolol Tartrate (Metoprolol Tartrate 25 Mg Tab) 25 mg PO TID [facility] Stop: 12/06/20 20:59 Miscellaneous (Icu Protocol For Hyperglycemia) 1 ea N/A PRN PRN; Protocol PRN Reason: Hyperglycemia Protocol Stop: 11/07/20 23:30 Miscellaneous (Carbohydrates For Hypoglycemia ) 15 - 30 gm PO UD PRN PRN Reason: Hypoglycemia Protocol Stop: 12/06/20 00:10 Multivitamins (Multivitamin Tab) 1 tab PO DAILY YOEL Stop: 12/06/20 08:59 Last Admin: 11/06/20 09:01 Dose: 1 tab Documented by: Ondansetron HCl (Ondansetron Inj 2 Mg/Ml 2 Ml Vial) 4 mg IV Q6H PRN PRN Reason: Nausea And Vomiting Stop: 12/06/20 00:23 (1) ST elevation (STEMI) myocardial infarction Involved coronary artery: unspecified coronary artery Qualified Code(s): I21.3 - ST elevation (STEMI) myocardial infarction of unspecified site
--- NOTE | 2020-11-06 19:26 | Communication Note ---
Date of Service: November 06, 2020 Patient reassessed. Describes "labored breathing" Short 3 beat runs of NSVT noted. Ongoing rales . Check stat labs, reassessed renal function , electrolytes, troponin. Lasix 40 mg x 1 . Based on how high troponin elevation and severe echocardiographic abnormalities. I have significant concerns with regards to her prognosis. Attempted to reach daughter, Susie, by phone, no answer. Left voicemail.
[2020-11-06] MEDS ORDERED: FUROSEMIDE 40 MG/4 ML VIAL IV ONE (19:33)
[2020-11-06] MEDS: ONDANSETRON INJ 2 MG/ML 2 ML VIAL IV PRN (19:36)
[2020-11-06] MEDS ORDERED: FUROSEMIDE 40 MG in SYRINGE 0 ML IV ONE ×2 (19:45→21:06)
[2020-11-06] MEDS ORDERED: NITROGLYCERIN/D5W 100MCG/ML 250 ML IV SCH (20:00)
[2020-11-06] MEDS ORDERED: ONDANSETRON INJ 2 MG/ML 2 ML VIAL IV STA (20:19)
[2020-11-06 20:25] LABS: BUN Creatinine Ratio 17.3 (10-20); Creatinine Clr Calc Pharmacy 31.2 ml/min; Est GFR (African American) 55.2; Est GFR (Non-African American) 47.6; Magnesium 2.4 mg/dl (1.8-2.4); Potassium 4.7 mmol/L (3.5-5.1)
[2020-11-06 20:43] LABS: Troponin I 76.9 ng/ml (0-0.045)
[2020-11-06] MEDS ORDERED: INSULIN GLARGINE SOLOSTAR 100 UNITS/ML 3 ML PEN SC SCH (21:00)
[2020-11-06] MEDS ORDERED: PROCHLORPERAZINE 10 MG in SYRINGE 8 ML IV ONE (21:30)
--- NOTE | 2020-11-06 22:12 | Communication Note ---
Date of Service: November 06, 2020 Spoke with cardiology regarding Ms. Fragoso. She was downgraded from ICU care earlier in the day, however she has continued to have pulmonary congestion and i s now having symptoms of nausea which was associated with her initial presentation of [place]. EKG remains unchanged. Troponins are trending down. Cardiology has placed the patient on a nitro drip which will need to be titrated in ICU per policy. Patient has received additional 80 Lasix this evening. Will follow up chest x-ray in a.m. Patient to remain in ICU for time being. Coding Level of Care Code None
[2020-11-06] MEDS: METOPROLOL TARTRATE 25 MG TAB PO SCH (22:21)
[2020-11-07 04:36] LABS: Hematocrit (blood only) 39.2 % (37-47); Hemoglobin 13.3 g/dL (12.0-16.0); Mean Corpuscular Hgb Conc 33.9 g/dL (32-36); Mean Corpuscular Volume 94.2 fL (80-100); Mean Platelet Volume 9.2 fL (7.4-10.4); Platelet Count 273 K/uL (130-400); RDW Coefficient of Variation 13.7 % (11.5-14.5); Red Blood Count 4.16 M/uL (4.2-5.4); White Blood Count 27.16 K/uL (4.8-10.8)
[2020-11-07 04:46] LABS: Partial Thromboplastin Ratio 0.9; Partial Thromboplastin Time 22.5 Seconds (21.0-31.0); Prothrombin Time 9.9 Seconds (9.0-12.0)
[2020-11-07 04:53] LABS: Calcium 8.1 mg/dl (8.5-10.1); Creatinine Clr Calc Pharmacy 28.7 ml/min; Est GFR (African American) 49.9; Est GFR (Non-African American) 43.1; Magnesium 2.3 mg/dl (1.8-2.4); Potassium 4.3 mmol/L (3.5-5.1)
[2020-11-07 05:12] LABS: Phosphorus 3.7 mg/dl (2.5-4.9); Troponin I 51.4 ng/ml (0-0.045)
[2020-11-07 05:32] LABS: Basophils # (auto) 0.03 K/uL (0-0.2); Basophils % (auto) 0.1 %; Eosinophils # (auto) 0.11 K/uL (0-0.5); Eosinophils % (auto) 0.4 %; Immature Granulocytes # (auto) 0.11 K/uL (0.00-0.02); Immature Granulocytes % (auto) 0.4 %; Lymphocytes # (auto) 0.95 K/uL (1.2-3.4); Lymphocytes % (auto) 3.5 %; Monocytes # (auto) 1.85 K/uL (0.11-0.59); Monocytes % (auto) 6.8 %; Neutrophils # (auto) 24.11 K/uL (1.4-6.5); Neutrophils % (auto) 88.8 %
[2020-11-07] MEDS: AMOXICILLIN/CLAVULANATE 500 MG TAB PO SCH (05:48)
[2020-11-07 06:37] LABS: Appearance Urine Clear (Clear); Bacteria Urine Automated Negative (Negative); Bilirubin Urine Negative (Negative); Blood Urine 3+ (Negative); Color Urine Orange; Epithelial Cell Urine Auto 0-5 /lpf (0-5); Glucose Urine UA Negative (Negative); Ketones Urine Negative (Negative); Leukocyte Esterase Urine Trace (Negative); Nitrite Urine Negative (Negative); Protein Urine 2+ (Negative); RBC Urine Automated >30 /hpf (0-4); Urobilinogen Urine Negative (Negative)
--- NOTE | 2020-11-07 07:41 | Critical Care Progress Note ---
Date of Service November 07, 2020 Assessment & Plan (1) Nonsustained ventricular tachycardia: Impression: 89-year-old female presenting with acute coronary syndrome status post stent placement. She had been doing well and was downgraded out of the ICU and shortness of breath. She was intolerant to nitroglycerin due to blood pressure issues. She has developed naseem hematuria as well. Recommendations: 1. Acute coronary syndrome: Management per cardiology. Continue to. Beta- akil and YRN inhibitor as tolerated. 2. Chest congestion: We will repeat chest x-ray today. Hold on additional diuresis. Creatinine has slowly increased. Patient is on antibiotics for potential aspiration pneumonia although her white count continues to increase. 3. Hematuria: Etiology unclear. The patient is on multiple antiplatelet agents. Will obtain CT of the abdomen and pelvis noncontrast to evaluate for nephrolithiasis or other pathology 4. Nausea and vomiting: Currently resolved. Continue to follow at this point time. 5. Mild renal insufficiency: Creatinine has slowly increased but remains within normal limits. Will need to trend closely. 6. Glucose intolerance: Blood sugars are slightly elevated. Continue glycemic control. Hemoglobin A1c elevated at 6.3. Will need outpatient follow-up with her primary provider. Disposition deferred to cardiology and primary service. (2) Acute HFrEF (heart failure with reduced ejection fraction): (3) ST elevation (STEMI) myocardial infarction: (4) Aspiration into airway: (5) Hematuria: Admission and Anticipated Discharge Date Admission Date: November 05, 2020 Subjective Patient feeling well this morning. No chest pain shortness of breath or nausea. She did experience some nausea and congestion last evening pressure did not tolerate this. She is also developed hematuria. No prior history of nephrol ithiasis. She never experienced chest pain. Troponins continued to downtrend. She did receive Lasix which may have offered her some benefit. Review of Systems Review of Systems: All systems reviewed & are unremarkable except as noted in HPI & below Physical Exam Constitutional: WD/WN, vitals as above Neck: trachea midline, no thyromegaly Respiratory: normal respiratory effort, lungs clear to auscultation Cardiovascular: RRR, no murmur, no edema Gastrointestinal (Abdomen): normal bowel sounds, soft, nontender, no hepatos plenomegaly Musculoskeletal: Extremities: extremities normal to inspection Skin: no rashes, warm and dry Neurologic: Nonfocal exam Lymphatic: no cervical lymphadenopathy Results & Data Results & Data ([facility]) Vital Signs (Past 12 Hours) Vital Signs Temp Pulse Pulse Resp BP BP Pulse Ox 11/07/20 06:30 94 H 18 102/58 L 94 11/07/20 06:00 100 H 21 116/66 93 11/07/20 05:30 94 H 18 102/59 L 93 11/07/20 05:00 97 H 18 97/61 L 93 11/07/20 04:30 98 H 18 114/65 94 11/07/20 04:00 36.9 C 96 H 20 93/57 L 95 11/07/20 03:30 96 H 18 100/58 L 94 11/07/20 03:00 94 H 18 104/58 L 94 11/07/20 02:30 99 H 18 91/57 L 94 11/07/20 02:00 99 H 19 97/58 L 95 11/07/20 01:30 100 H 18 99/54 L 95 11/07/20 01:00 101 H 19 94/58 L 94 11/07/20 00:30 103 H 18 95/54 L 93 11/07/20 00:00 36.7 C 102 H 19 103/64 95 11/06/20 22:45 102 H 19 96/58 L 94 11/06/20 22:30 104 H 19 94/57 L 93 11/06/20 22:15 99 H 19 92/59 L 93 11/06/20 22:09 100 H 18 92/59 L 93 11/06/20 22:05 102 H 19 95/57 L 92 11/06/20 22:00 104 H 20 83/52 L 92 11/06/20 21:45 105 H 18 90/55 L 91 11/06/20 21:30 103 H 21 113/71 93 11/06/20 21:15 104 H 18 103/57 L 94 11/06/20 21:00 102 H 26 H 98/55 L 93 11/06/20 20:45 106 H 22 105/65 93 11/06/20 20:30 114 H 25 H 112/67 94 11/06/20 20:15 104 H 25 H 110/69 93 11/06/20 20:11 107 H 24 116/74 93 11/06/20 20:09 36.6 C 129 H 22 130/87 92 Laboratory Results 11/07/20 04:09 11/07/20 04:09 Diagnostic Findings No new imaging Coding Level of Care Code 16116 Subseq Hosp Care Lvl 3 Diagnoses Nonsustained ventricular tachycardia I47.2 Acute HFrEF (heart failure with reduced ejection fraction) I50.21 ST elevation (STEMI) myocardial infarction I21.3 Involved coronary artery: unspecified coronary artery Aspiration into airway T17.908A Hematuria R31.9 (1) ST elevation (STEMI) myocardial infarction Involved coronary artery: unspecified coronary artery Qualified Code(s): I21.3 - ST elevation (STEMI) myocardial infarction of unspecified site
[2020-11-07] MEDS: FLUTICASONE/VILANTEROL 100/25MCG 14 PUFFS/INHALER INH SCH (08:18)
[2020-11-07] MEDS: METOPROLOL TARTRATE 25 MG TAB PO SCH ×3 (08:18→20:39)
[2020-11-07] MEDS: MULTIVITAMIN TAB PO SCH (08:18)
[2020-11-07] MEDS: GABAPENTIN 100 MG CAP PO SCH ×3 (08:19→20:39)
[2020-11-07] MEDS: CLOPIDOGREL BISULFATE 75 MG TAB PO SCH (08:19)
[2020-11-07] MEDS: ASPIRIN 81 MG ECTAB PO SCH (08:19)
[2020-11-07] MEDS: ATORVASTATIN 40 MG TAB PO SCH (08:19)
[2020-11-07] MEDS: lisinopril 5 MG TAB PO SCH (08:20)
[2020-11-07] MEDS: INSULIN ASPART 100 UNITS/ML 3 ML PEN SC SCH ×4 (08:21→20:39)
[2020-11-07] MEDS: ONDANSETRON INJ 2 MG/ML 2 ML VIAL IV PRN (08:57)
--- NOTE | 2020-11-07 09:20 | CT Scan Report ---
ABDOMEN AND PELVIS CT WITHOUT CONTRAST CT DOSE: 462.06 mGy.cm HISTORY: Acute hematuria with generalized abdominal pain hematuria, abd pain TECHNIQUE: Multiaxial CT images of the abdomen and pelvis were performed without contrast. A dose lo wering technique was utilized adhering to the principles of ALARA. COMPARISON STUDY: Chest radiograph 11/06/2020, CT abdomen and pelvis 11/28/2010 FINDINGS: Respiratory motion artifact limits the study. Cardiomegaly with trace pericardial effusion. Extensive coronary artery calcifications. Small layering pleural effusions. Dependent bibasilar consolidation. No pneumatosis or pneumoperitoneum. The unenhanced spleen, moderately atrophic pancreas and adrenal glands are unremarkable. Gallbladder appears to be surgically absent. Geographic hepatic steatosis. Renal sinus cysts of the left kidney redemonstrated. 4 mm calcification of the superior pole left kid liza. Partially calcified and partially exophytic 2.1 x 1.6 x 2.0 cm lesion involves the posterolatera l interpolar right kidney, previously measuring 1.1 x 0.9 cm. There is asymmetric right-sided perinep hric stranding. Question hyperdense material within the right renal pelvis decompressed urinary bladd er with Esquivel catheter. No ureteral calculi. Hyperdense material within the urinary bladder lumen angela ng with nondependent air. Unremarkable uterus and adnexa. No aortic aneurysm. There is no adenopathy. Mild wall thickening of the distal esophagus with tiny hiatal hernia. There is no bowel obstruction o r bowel wall thickening. Colonic diverticulosis. The appendix is not definitively seen. No secondary signs of acute appendicitis. Fat filled periumbilical hernia, diastases 1.0 cm. Degenerative changes of the spine, pelvis and hips. Lumbar levoscoliosis. Grade 1 anterolisthesis L4 on L5, likely degener ative. IMPRESSION: 1. Hyperdense material within the right renal pelvis and dependent urinary bladder suggestive of bloo d products. 2. 4 mm left renal calcification. No ureteral calculi or hydronephrosis. 3. Small pleural effusions with bibasilar atelectasis. 4. Partially calcified 2.1 cm lesion of the right kidney previously measured 1.1 cm on the 2011 exam. Complex cyst versus slow growing neoplasm are the differential considerations. 6. Additional findings as above. ACT 112: Negative or not required by law. The above report was generated using voice recognition software. It may contain grammatical, syntax o r spelling errors. Electronically signed by: Dex Black M.D. 11/07/2020 9:19 AM
--- NOTE | 2020-11-07 09:38 | Cardiology Progress Note ---
Date of Service November 07, 2020 Assessment & Plan (1) ST elevation (STEMI) myocardial infarction: EKg this am at 4:[address] at 104 , with LBBB, ongoing persisted lateral ST elevation , unchanged compared to post PCI. s/p PCI, [place] to LAD. Continue ASA, Plavix, Metoprolol tartrate for now while titrating, atorvastatin. (2) Acute HFrEF (heart failure with reduced ejection fraction): New onset ischemic CM, LVEF 29%. 3.2 L of urine output in last 24 hrs, negative 1.7 L. Renal function and electrolytes stable. Improved with antiemetics, lasix 40 +40 mg, transient nitroglycerin infusion 11/06-11/07. Lasix 40 mg IV daily. Nitroglycerin infusion weaned, DC'd. (3) LBBB (left bundle branch block): Chronic. (4) Nonsustained ventricular tachycardia: Follow electrolytes. Continue metoprolol. (5) Hematuria: Perhaps due to prior Esquivel trauma. (6) Aspiration into airway: Continue Augmentin. DVT prophylaxis: Lovenox DVT prophylaxis on hold due to hematuria, consider restarting. Although clinically improved compared to last evening. Prognosis still poor / guarded given echo findings. At present I do not think she has reached the point of requiring palliative care considerations, however, I do think it would benefit patient and family to allow her daughter to visit today. Will discuss with nursing adminstration. Admission and Anticipated Discharge Date Admission Date: November 05, 2020 Subjective Patient seen in follow up of large LAD territory STEMI with resultant new severe LV systolic dysfunction and CHF. Patient much improved compared to when I had assessed her last evening. Nausea has resolved. Rales resolved. Subjective shortness of breath resolved. Review of Systems Review of Systems: All systems reviewed & are unremarkable except as noted in HPI & below Physical Exam Physical Exam: Temp Pulse Resp BP Pulse Ox 36.9 C 94 H 18 102/58 L 94 11/07/20 04:00 11/07/20 06:30 11/07/20 06:30 11/07/20 06:30 11/07/20 06:30 Constitutional: WD/WN, vitals as above Respiratory: minimally decreased BS at bases.Rales noted evening of 11/06 have resolved. Cardiovascular: Rate/Rhythm: + irregularly irregular Heart Sounds: no murmur Vessels: + JVD Extremities: no edema Gastrointestinal (Abdomen): normal bowel sounds, soft, nontender, no hepatosplenomegaly Neurologic: PERRL, EOMI, accommodation nl, no face palsy, no dysarthria Genitourinary: Esquivel catheter in place, pink tinged urine Results & Data ([facility]) Vital Signs (Past 12 Hours) Vital Signs Temp Pulse Pulse Resp BP BP Pulse Ox 11/07/20 06:30 94 H 18 102/58 L 94 11/07/20 06:00 100 H 21 116/66 93 11/07/20 05:30 94 H 18 102/59 L 93 11/07/20 05:00 97 H 18 97/61 L 93 11/07/20 04:30 98 H 18 114/65 94 11/07/20 04:00 36.9 C 96 H 20 93/57 L 95 11/07/20 03:30 96 H 18 100/58 L 94 11/07/20 03:00 94 H 18 104/58 L 94 11/07/20 02:30 99 H 18 91/57 L 94 11/07/20 02:00 99 H 19 97/58 L 95 11/07/20 01:30 100 H 18 99/54 L 95 11/07/20 01:00 101 H 19 94/58 L 94 11/07/20 00:30 103 H 18 95/54 L 93 11/07/20 00:00 36.7 C 102 H 19 103/64 95 11/06/20 22:45 102 H 19 96/58 L 94 11/06/20 22:30 104 H 19 94/57 L 93 11/06/20 22:15 99 H 19 92/59 L 93 11/06/20 22:09 100 H 18 92/59 L 93 11/06/20 22:05 102 H 19 95/57 L 92 11/06/20 22:00 104 H 20 83/52 L 92 11/06/20 21:45 105 H 18 90/55 L 91 11/06/20 21:30 103 H 21 113/71 93 (1) ST elevation (STEMI) myocardial infarction Involved coronary artery: unspecified coronary artery Qualified Code(s): I21.3 - ST elevation (STEMI) myocardial infarction of unspecified site
[2020-11-07] MEDS: FUROSEMIDE 40 MG in SYRINGE 0 ML IV SCH (10:52)
--- NOTE | 2020-11-07 10:58 | XRay Report ---
XR chest 1V portable HISTORY: Vomiting. Pneumonia. COMPARISON: Abdomen and pelvis CT 11/07/2020. FINDINGS: No change in the small bilateral pleural effusions and patchy bibasilar densities. This fav ors atelectasis from the pleural effusions. The upper lung zones remain clear. The heart is top jarod l in size. No evidence for pulmonary edema. No pneumothorax. IMPRESSION: No change in the small bilateral pleural effusions and patchy bibasilar densities. This favors atelec tasis from the pleural effusions. A pneumonia could also have a similar appearance. ACT 112: Negative or not required by law. Electronically signed by: Lucas Mathew M.D. 11/07/2020 10:57 AM
[2020-11-07 11:06] LABS: Hematocrit (blood only) 39.8 % (37-47); Hemoglobin 13.3 g/dL (12.0-16.0)
[2020-11-07] MEDS ORDERED: PROCHLORPERAZINE 5 MG in SYRINGE 4 ML IV PRN (11:57)
--- NOTE | 2020-11-07 12:20 | Communication Note ---
Date of Service: November 07, 2020 I had a family meeting with patient's daughter, Susie, and son , Ryder. I meet with patient and Susie. We discussed my concerns with patient having had a large myocardial infarction (heart attack) with new severe congestive heart failure, concerns for aspiration pneumonia, and now development of hematuria / kidney stones. Pt not candidate for cystoscopy due to unstable cardiac status and aspirin and plavix cannot be held due to new coronary stents. Discussed goals of care. Patient mentating well. She prefers to remain a full code and would want CPR and intubation if necessary, if she was to have a cardiac arrest. Patient is however, interested in having palliative care follow her , with regards to ongoing discussion of goals of care. I will order consult for palliative care. Dr Flower to assume rounding for our cardiology service on 11/06.
--- NOTE | 2020-11-07 13:31 | Palliative Care Consultation ---
Date of Consultation November 07, 2020 Assessment & Plan (1) Palliative care encounter: This is an 89 year old female who presented to the [facility] with shortness of breath and chest pain. She was found to have a STEMI and underwent a cardiac catheterization with a drug-eluting stent placed in the LAD due to the 100% occlusion that was noted.She was stable and transitioned out of the ICU. She developed shortness of breath and was given Nitro without resolution. She was brought back to the ICU for closer monitoring. Additional PMH includes: non Hodgkin's lymphoma, hyperlipidemia, hypertension, CHF, and VT. Cardiology has evaluated this individual. Palliative Medicine was consulted to discuss goals of care. I met with Deisi in room 110. She was AAOx3 and able to participate fully in her goals of care conversation. We discussed her baseline functional status which is fully independent. She indicated that she was gardening when the chest pain began shortly afterwards. She lives independently and her two kids live on the same street as her. She denies any acute symptoms at this time. We discussed code status and discussed cardiac arrest and respiratory arrest and the details of a code. She was clear that she would want full resuscitation efforts taken. She did indicate that if she would not be showing signs of improvement over a 3-5 day period that she would prefer her family transition her to more comfort focused approach in her care. She has designated Susie to be her main decision maker. She has received home health services prior and is receptive to do so upon discharge. We discussed outpatient palliative care for future needs if/when necessary. At this time, palliative care will sign off. Thanks for involving palliative care with this individual. (2) Chest pain: Chest pain type: unspecified Qualified Code(s): R07.9 - Chest pain, unspecified (3) Acute HFrEF (heart failure with reduced ejection fraction): (4) Acute MS: Involved coronary artery: unspecified coronary artery Myocardial infarction type: unspecified Qualified Code(s): I21.9 - Acute myocardial infarction, unspecified (5) Shortness of breath: History of Present Illness Reason for Consultation: Goals of Care Requesting Physician: Dr. Kim Attending Physician: Meenakshi Kim, DO History of Present Illness This is an 89 year old female who presented to the [facility] with shortness of breath and chest pain. She was found to have a STEMI and underwent a cardiac catheterization with a drug-eluting stent placed in the LAD due to the 100% occlusion that was noted.She was stable and transitioned out of the ICU. She developed shortness of breath and was given Nitro without resolution. She was brought back to the ICU for closer monitoring. Additional PMH includes: non Hodgkin's lymphoma, hyperlipidemia, hypertension, CHF, and VT. Cardiology has evaluated this individual. Palliative Medicine was consulted to discuss goals of care. Please see A/P for additional information. Thank you kindly for involving palliative medicine with this individual. Allergies Allergy/AdvReac Type Severity Reaction Status Date / Time codeine Allergy Mild 0 Verified 11/05/20 22:15 aminosalicylic acid Allergy PT TAKES Verified 11/05/20 22:15 ASA AT HOME W/O PROBLEM Home Medications Medication Instructions Recorded Confirmed Type albuterol sulfate 2 puff INHALATION Q6 PRN 11/05/20 11/05/20 History alprazolam 0.25 mg PO HS PRN 11/05/20 11/05/20 History amlodipine 5 mg PO DAILY 11/05/20 11/05/20 History aspirin [Aspirin Low Dose] 81 mg PO DAILY 11/05/20 11/05/20 History fluticasone propion-salmeterol 1 inh INHALATION BID 11/05/20 11/05/20 History [Wixela Inhub] gabapentin 100 mg PO TID 11/05/20 11/05/20 History lisinopril 20 mg PO DAILY 11/05/20 11/05/20 History metoprolol succinate 50 mg PO DAILY 11/05/20 11/05/20 History multivitamin 1 tab PO DAILY 11/05/20 11/05/20 History Patient History Medical History (Updated 11/07/20 @ 13:31 by JERILYN Brooks) Asthma with exacerbation DVT prophylaxis Hyperlipidemia Hypertension Non Hodgkin's lymphoma Palliative care encounter Shortness of breath Social History Smoking Status: Never smoker Hx Alcohol Use: No Hx Substance Use: No Preferred Language: [place] Communication Ability: Effective Breaker Up Machine Operator Required: No Beliefs That Will Affect Care: None Current Living Situation: Alone Other Information That Helps Us Care for You: No Feels Safe at Home: Yes Safety Concerns: Feels Safe At This Time Assistive Devices: Oxygen - Continuous and Walker Review of Systems Review of Systems: [place] System Assessment Scale: Pain: 0/3 Tiredness: 0/3 SOB: 0/3 Anxiety: 0/3 PPS: 50% Physical Exam Constitutional: cooperative and comfortable ENMT: Nose: + dry nasal mucous membranes Neck: trachea midline, no thyromegaly Respiratory: normal respiratory effort Auscultation: + diminished lung sounds Cardiovascular: Heart Sounds: normal S1, normal S2 and + murmur Extremities: normal capillary refill; no edema Gastrointestinal (Abdomen): normal bowel sounds, soft, nontender, no hepatosplenomegaly Skin: + pallor Psychiatric: A+Ox3, euthymic affect Results & Data ([facility]) Vital Signs (Past 12 Hours) Vital Signs Temp Pulse Resp BP Pulse Ox 11/07/20 12:00 36.6 C 83 17 108/70 95 11/07/20 11:00 107 H 19 113/69 96 11/07/20 10:00 101 H 21 98/64 L 94 11/07/20 09:00 120 H 22 91 11/07/20 08:00 109 H 20 127/72 94 11/07/20 07:30 102 H 20 111/66 93 11/07/20 07:00 91 H 17 101/60 93 11/07/20 06:30 94 H 18 102/58 L 94 11/07/20 06:00 100 H 21 116/66 93 11/07/20 05:30 94 H 18 102/59 L 93 11/07/20 05:00 97 H 18 97/61 L 93 11/07/20 04:30 98 H 18 114/65 94 11/07/20 04:00 36.9 C 96 H 20 93/57 L 95 11/07/20 03:30 96 H 18 100/58 L 94 11/07/20 03:00 94 H 18 104/58 L 94 11/07/20 02:30 99 H 18 91/57 L 94 11/07/20 02:00 99 H 19 97/58 L 95 11/07/20 01:30 100 H 18 99/54 L 95 PG Care Time/CCT Total # of Minutes Spent Total Time Spent with Patient: Total time spent is greater than 50% in coordination of care (as documented) at patient's floor/unit and/or counseling patient: Total time spent 50 mintues with > 50% of that time spent assessing the patient, discussing goals of care and collaborating with IDT. Coding Level of Care Code 59346 Inpt Consult Level 2 Diagnoses Palliative care encounter Z51.5 Chest pain R07.9 Chest pain type: unspecified Acute HFrEF (heart failure with reduced ejection fraction) I50.21 Acute MS I21.9 Involved coronary artery: unspecified coronary artery Myocardial infarction type: unspecified Shortness of breath R06.02 Time Spent (min) 50
--- NOTE | 2020-11-07 14:27 | Electrocardiogram Report ---
Test Reason : Blood Pressure : / mmHG Vent. Rate : 118 BPM Atrial Rate : 118 BPM P-R Int : 150 ms QRS Dur : 122 ms QT Int : 328 ms P-R-T Axes : 075 -13 089 degrees QTc Int : 459 ms Sinus tachycardia Left bundle branch block Abnormal ECG When compared with ECG of 06-NOV-2020 12:02, Premature supraventricular complexes are no longer Present Confirmed by Rodrigo Ty ([id number]) on 11/07/2020 2:26:35 PM Referred By: REFERRED SELF Confirmed By:Rodrigo Ty
--- NOTE | 2020-11-07 14:55 | Electrocardiogram Report ---
Test Reason : Blood Pressure : / mmHG Vent. Rate : 107 BPM Atrial Rate : 107 BPM P-R Int : 152 ms QRS Dur : 122 ms QT Int : 356 ms P-R-T Axes : 052 -04 085 degrees QTc Int : 475 ms Sinus tachycardia Left bundle branch block Abnormal ECG When compared with ECG of 06-NOV-2020 19:47, (unconfirmed) No significant change was found Confirmed by Rodrigo Ty ([id number]) on 11/07/2020 2:55:29 PM Referred By: REFERRED SELF Confirmed By:Rodrigo Ty
--- NOTE | 2020-11-07 15:51 | Hospitalist Progress Note ---
Date of Service November 07, 2020 Assessment & Plan (1) ST elevation (STEMI) myocardial infarction: Cath procedure on admission with stent placed in LAD lesion. Continues to have nonsustained V. tach on telemetry. Cont DAPT, Lipitor 40, YRN and metoprolol. Heart rate has improved into the 80s. (2) Acute HFrEF (heart failure with reduced ejection fraction): STEMI with reduced ejection fraction to roughly 30%. Continues on diuresis with intravenous furosemide. Transient nitroglycerin infusion given overnight but discontinued. Continue on furosemide 40 mg IV daily per cardiology monitor strict I's and O's, continue low-salt diet and daily standing weights. (3) Nonsustained ventricular tachycardia: Likely a result of recent cardiac insult and ongoing poor ejection fraction. Continue daily BMP with goal to keep potassium around 4 and magnesium over 2. Continue guideline directed medical therapy. Continue telemetry monitoring. Beta-akil titrated upward to 25 mg p.o. 3 times daily. (4) Aspiration into airway: Augmentin transition to ceftriaxone per pulmonology. She continues to require minimal supplemental oxygen (5) Hypertension: Controlled on current therapies. (6) Metabolic syndrome: Admitted with hyperglycemia-A1C 6.3. Cont carb coverage and correction factor with Novolog. Now that she is back in ICU, continue per ICU protocol. (7) DVT prophylaxis: Lovenox Full code Disposition-to home when medically stable. Transition back into the ICU overnight. Continue ICU monitoring for now until cleared by cardiology and tool turret lathe set up operator to stepdown and monitoring. Patient remains a full code per goals of care discussion by palliative provider with patient and family members today. Meenakshi Kim DO [facility] Hospitalist Admission and Anticipated Discharge Date Admission Date: November 05, 2020 Subjective 89 yo F s/p STEMI on arrival status post drug-eluting stent to LAD lesion After being transferred out of ICU she became more nauseous and had increased difficulty breathing. She was transferred back into the ICU for respiratory support and additional intravenous Lasix. She was placed on a nitro glycerin drip. She had additional issues with nausea, somewhat resolved this morning but back again this afternoon and intermittent throughout the day. She is also developed gross hematuria and her Esquivel catheter and was found to have Hyperdense material in the right renal pelvis and dependent urinary bladder suggestive of blood, a 4 mm left renal calcification without evidence of hydronephrosis, and a partially calcified 2.1 cm lesion of the right kidney previously measured at 1.1 cm in 2011. Differential considerations include but not limited to a complex cyst versus slow-growing neoplasm. Abdominal pain has resolved but every time she tries some food she becomes nauseous still. She feels her breathing is somewhat improved this evening. Sputum cultures are grow ing gram-negative bacilli and she was switched to Rocephin by the plastics factory worker today. Review of Systems Review of Systems: All systems reviewed & are unremarkable except as noted in Subjective Physical Exam Physical Exam: CONSTITUTIONAL: WNWD, vitals as above, generally well- appearing EYES: normal conjunctivae, no scleral icterus ENT: external ear and nose normal, MMM RESPIRATORY: clear to auscultation bilaterally, no crackles, rales or wheezes, normal respiratory effort CARDIOVASCULAR: regular rate and rhythm, S1 and 2 heard without murmurs, gallops or rubs, no JVD, no peripheral edema GASTROINTESTINAL: soft, nontender, nondistended, no guarding. MUSCULOSKELETAL: strength 5/5 throughout, head is normocephalic and atraumatic SKIN: warm and dry NEUROLOGIC: CN 2-12 grossly intact, no sensory deficit, normal cognition, normal speech PSYCHIATRIC: alert cooperative and oriented to person, place and time. Results & Data Results & Data ([facility]) Vital Signs (Past 12 Hours) Vital Signs Temp Pulse Resp BP Pulse Ox 11/07/20 15:00 89 18 101/61 95 11/07/20 14:44 93 H 18 111/69 96 11/07/20 14:00 94 H 18 111/69 95 11/07/20 13:00 91 H 17 110/76 95 11/07/20 12:00 36.6 C 83 17 108/70 95 11/07/20 11:00 107 H 19 113/69 96 11/07/20 10:00 101 H 21 98/64 L 94 11/07/20 09:00 120 H 22 91 11/07/20 08:00 109 H 20 127/72 94 11/07/20 07:30 102 H 20 111/66 93 11/07/20 07:00 91 H 17 101/60 93 11/07/20 06:30 94 H 18 102/58 L 94 11/07/20 06:00 100 H 21 116/66 93 11/07/20 05:30 94 H 18 102/59 L 93 04/09/21 05:00 97 H 18 97/61 L 93 11/07/20 04:30 98 H 18 114/65 94 11/07/20 04:00 36.9 C 96 H 20 93/57 L 95 Laboratory Results Short CBC 11/07/20 11/07/20 Range/Units 04:09 10:50 WBC 27.16 H (4.8-10.8) K/uL Hgb 13.3 13.3 (12.0-16.0) g/dL Hct 39.2 39.8 (37-47) % Plt Count 273 (130-400) K/uL BMP 11/06/20 11/07/20 19:51 04:09 Sodium 135 L 137 Potassium 4.7 D 4.3 Chloride 102 102 Carbon Dioxide 25 31 BUN 18 20 H Creatinine 1.04 1.13 Glucose 125 H 135 H Calcium 9.0 8.1 L Cardiac Enzymes 11/06/20 11/07/20 Range/Units 19:51 04:09 Troponin I 76.900 H* 51.400 H* (0-0.045) ng/ml Urine 11/07/20 Range/Units 04:10 Urine Color [place] Urine Appearance Clear (Clear) Urine pH 5.0 (4.5-7.5) Ur Specific [place] 1.020 (1.000-1.030) Urine Protein 2+ H (Negative) Urine Glucose (UA) Negative (Negative) Medications Administered Current Inpatient Medications Acetaminophen (Acetaminophen 325 Mg Tab) 650 mg PO Q4H PRN PRN Reason: MILD Pain (Scale 1,2,3) Stop: 12/05/20 23:30 Albuterol (Albut/Ipratrop 3mg/0.5mg Neb 3 Ml Vial) 3 ml NEB Q4R PRN PRN Reason: Wheezing Stop: 12/06/20 00:05 Last Admin: 11/06/20 00:31 Dose: 3 ml Documented by: Alprazolam (Alprazolam 0.25 Mg Tablet) 0.25 mg PO HS PRN PRN Reason: Sleep Stop: 12/05/20 23:54 Aspirin (Aspirin 81 Mg Ectab) 81 [facility] [place] Stop: 12/06/20 08:59 Last Admin: 11/07/20 08:19 Dose: 81 mg Documented by: Atorvastatin Calcium (Atorvastatin 40 Mg Tab) 40 mg PO QAM [facility] Stop: 12/06/20 08:59 Last Admin: 11/07/20 08:19 Dose: 40 mg Documented by: Clopidogrel Bisulfate (Clopidogrel Bisulfate 75 Mg Tab) 75 mg PO QAM [facility] Stop: 12/06/20 08:59 Last Admin: 11/07/20 08:19 Dose: 75 mg Documented by: Dextrose (Dextrose 50% 50 Ml Syringe) 25 - 50 ml IV UD PRN; Protocol PRN Reason: Hypoglycemia Protocol Stop: 12/06/20 00:10 Enoxaparin Sodium (Enoxaparin Inj 30 Mg/0.3 Ml Syr) 30 mg SQ QAM [facility] Stop: 12/06/20 08:59 Last Admin: 11/06/20 09:00 Dose: 30 mg Documented by: Fluticasone/Vilanterol (Fluticasone/Vilanterol 100/25mcg 14 Puffs/Inhaler) 1 puffs INH DAILY [facility] Stop: 12/06/20 08:59 Last Admin: 11/07/20 08:18 Dose: 1 puffs Documented by: Gabapentin (Gabapentin 100 Mg Cap) 100 mg PO TID [facility] Stop: 12/06/20 08:59 Last Admin: 11/07/20 15:25 Dose: 100 mg Documented by: Glucagon (Glucagon For Inj 1 Mg Vial) 1 mg SQ UD PRN; Protocol PRN Reason: Hypoglycemia Protocol Stop: 12/06/20 00:10 Glucose (Glucose 10 Tabs/Tube) 4 - 8 tabs PO UD PRN; Protocol PRN Reason: Hypoglycemia Protocol Stop: 12/06/20 00:10 Glucose (Glucose 40% Gel 15 Gm Tube) 15 - 30 gm PO UD PRN; Protocol PRN Reason: Hypoglycemia Protocol Stop: 12/06/20 00:10 Furosemide 40 mg/ Syringe 4 mls @ 4 mls/min IV DAILY [facility] Stop: 12/07/20 09:59 Last Admin: 11/07/20 10:52 Dose: 4 mls/min Documented by: Ceftriaxone Sodium 1,000 mg/ (Dextrose) 60 mls @ 120 mls/hr IV TODAY@1600 [facility] Stop: 11/12/20 16:29 Prochlorperazine 5 mg/ Syringe 5 mls @ 5 mls/min IV Q4H PRN PRN Reason: Nausea And Vomiting Stop: 12/07/20 11:56 Insulin Aspart (Insulin Aspart 100 Units/Ml 3 Ml Pen) 0 units SC ACHS [facility] Stop: 12/06/20 00:14 Last Admin: 11/07/20 11:55 Dose: 1 units Documented by: Lisinopril (Lisinopril 5 Mg Tab) 5 mg PO QAM [facility] Stop: 12/06/20 08:59 Last Admin: 11/07/20 08:20 Dose: 5 mg Documented by: Metoprolol Tartrate (Metoprolol Tartrate 25 Mg Tab) 25 mg PO TID [facility] Stop: 12/06/20 20:59 Last Admin: 11/07/20 15:25 Dose: 25 mg Documented by: Miscellaneous (Icu Protocol For Hyperglycemia) 1 ea N/A PRN PRN; Protocol PRN Reason: Hyperglycemia Protocol Stop: 11/07/20 23:30 Miscellaneous (Carbohydrates For Hypoglycemia ) 15 - 30 gm PO UD PRN PRN Reason: Hypoglycemia Protocol Stop: 12/06/20 00:10 Multivitamins (Multivitamin Tab) 1 tab PO DAILY [facility] Stop: 12/06/20 08:59 Last Admin: 11/07/20 08:18 Dose: 1 tab Documented by: Ondansetron HCl (Ondansetron Inj 2 Mg/Ml 2 Ml Vial) 4 mg IV Q6H PRN PRN Reason: Nausea And Vomiting Stop: 12/06/20 00:23 Last Admin: 11/07/20 08:57 Dose: 4 mg Documented by: (1) ST elevation (STEMI) myocardial infarction Involved coronary artery: unspecified coronary artery Qualified Code(s): I21.3 - ST elevation (STEMI) myocardial infarction of unspecified site
--- NOTE | 2020-11-07 16:30 | Electrocardiogram Report ---
Test Reason : Blood Pressure : / mmHG Vent. Rate : 104 BPM Atrial Rate : 104 BPM P-R Int : 148 ms QRS Dur : 122 ms QT Int : 352 ms P-R-T Axes : 069 -25 115 degrees QTc Int : 462 ms Sinus tachycardia Left bundle branch block Abnormal ECG When compared with ECG of 06-NOV-2020 20:43, (unconfirmed) No significant change was found Confirmed by Rodrigo Ty ([id number]) on 11/07/2020 4:30:04 PM Referred By: REFERRED SELF Confirmed By:Rodrigo Ty
[2020-11-07] MEDS: cefTRIAXone SODIUM 1,000 MG in DEXTROSE 5% 50 ML IV SCH (16:55)
[2020-11-08] MEDS: ALPRAZolam 0.25 MG TABLET PO PRN ×2 (00:45→22:01)
[2020-11-08] MEDS: ACETAMINOPHEN 325 MG TAB PO PRN ×2 (00:45→22:01)
[2020-11-08 05:40] LABS: BUN Creatinine Ratio 26.4 (10-20); Calcium 8.2 mg/dl (8.5-10.1); Est GFR (African American) 68.5; Est GFR (Non-African American) 59.1; Magnesium 2.3 mg/dl (1.8-2.4); Phosphorus 2.6 mg/dl (2.5-4.9); Potassium 3.6 mmol/L (3.5-5.1)
[2020-11-08 05:43] LABS: Basophils # (auto) 0.04 K/uL (0-0.2); Basophils % (auto) 0.2 %; Eosinophils # (auto) 0.35 K/uL (0-0.5); Eosinophils % (auto) 2.1 %; Hematocrit (blood only) 38.5 % (37-47); Hemoglobin 13.1 g/dL (12.0-16.0); Immature Granulocytes # (auto) 0.03 K/uL (0.00-0.02); Immature Granulocytes % (auto) 0.2 %; Lymphocytes # (auto) 1.95 K/uL (1.2-3.4); Lymphocytes % (auto) 11.9 %; Mean Corpuscular Hemoglobin 31.6 pg (25-34); Mean Corpuscular Volume 92.8 fL (80-100); Mean Platelet Volume 9.3 fL (7.4-10.4); Monocytes % (auto) 9.2 %; Neutrophils # (auto) 12.49 K/uL (1.4-6.5); Neutrophils % (auto) 76.4 %; Platelet Count 267 K/uL (130-400); RDW Coefficient of Variation 13.8 % (11.5-14.5); RDW Standard Deviation 47.2 fL (36.4-46.3); Red Blood Count 4.15 M/uL (4.2-5.4); White Blood Count 16.36 K/uL (4.8-10.8)
--- NOTE | 2020-11-08 07:54 | Critical Care Progress Note ---
Date of Service November 08, 2020 Assessment & Plan (1) Nonsustained ventricular tachycardia: Impression: 89-year-old female presenting with acute coronary syndrome status post stent placement. She had been doing well and was downgraded out of the ICU and shortness of breath. She was intolerant to nitroglycerin due to blood pressure issues. She has developed naseem hematuria as well. Recommendations: 1. Acute coronary syndrome with reduced EF: Management per cardiology. Continue to titrate beta-akil and YRN inhibitor as tolerated. 2. Aspiration pneumonia: E. coli resistant to Unasyn but sensitive to Rocephin. Continue Rocephin for an additional 5 days. Could transition to oral antibiotics if needed. Trend white blood cell count. 3. Hematuria: Suspect there was some bleeding associated with the complex lesion in the right kidney. Again the patient is not a candidate for any invasive procedures currently given her recent myocardial infarction and need for anticoagulation. In addition her ejection fraction and cardiomyopathy make her at high risk for any procedures currently. She should have urology follow- up in the outpatient setting. Keep Esquivel catheter for now until urine clears. 4. Nausea and vomiting: Currently resolved. Continue to follow at this point time. 5. Mild renal insufficiency: Improved this morning continue to follow clinically. Defer additional diuretics to cardiology. 6. Glucose intolerance: Blood sugars are slightly elevated. Continue glycemic control. Hemoglobin A1c elevated at 6.3. Will need outpatient follow-up with her primary provider. 7. Will need PT OT and out of bed as tolerated. The patient is stable to transfer out of the intensive care unit from my perspective. At this point time her critical care issues appear resolved. We will sign off at this point in time. Feel free to contact us if we can be of a dditional assistance. (2) Acute HFrEF (heart failure with reduced ejection fraction): (3) ST elevation (STEMI) myocardial infarction: (4) Aspiration into airway: (5) Hematuria: Admission and Anticipated Discharge Date Admission Date: November 05, 2020 Subjective Patient seen and examined. EMR reviewed. She is eating breakfast this morning. She remains on very low levels of oxygen. She is coughing or expectorating phlegm. No nausea but she states she has a poor appetite. Overnight events noted. Family met with palliative care with cardiology. Patient elected to pr oceed with full CODE STATUS for now. Review of Systems Review of Systems: All systems reviewed & are unremarkable except as noted in HPI & below Physical Exam Constitutional: WD/WN, vitals as above Neck: trachea midline, no thyromegaly Respiratory: normal respiratory effort, lungs clear to auscultation Cardiovascular: RRR, no murmur, no edema Gastrointestinal (Abdomen): normal bowel sounds, soft, nontender, no hepatosplenomegaly Musculoskeletal: Extremities: extremities normal to inspection Skin: no rashes, warm and dry Lymphatic: no cervical lymphadenopathy Results & Data Results & Data ([facility]) Vital Signs (Past 12 Hours) Vital Signs Temp Pulse Resp BP Pulse Ox 11/08/20 06:00 37 C 81 18 89/56 L 88 L 11/08/20 05:00 84 20 110/66 88 L 11/08/20 04:00 37 C 77 19 95/50 L 96 11/08/20 03:00 78 20 90/57 L 96 11/08/20 02:00 80 22 96/58 L 95 11/08/20 01:00 88 21 113/69 94 11/08/20 00:00 84 21 100/60 96 11/07/20 23:07 80 11/07/20 23:00 80 19 100/59 L 96 11/07/20 22:00 94 H 24 101/60 96 11/07/20 21:00 94 H 19 117/68 96 11/07/20 20:00 36.8 C 100 H 21 100/61 95 Laboratory Results 11/08/20 04:54 11/08/20 04:54 Sputum with E. coli resistant to Unasyn and cefazolin sensitive to Rocephin Diagnostic Findings Chest x-ray performed yesterday revealed a small bilateral pleural effusions with bibasilar densities. No acute change. CT of the abdomen pelvis from 11/07/2020 showed a 4mm left renal calcification with a partially calcified 2.1 cm lesion on the right kidney measuring 1.1 cm in 2011. Complex 6 versus neoplasm in the differential. Coding Level of Care Code 57223 Subseq Hosp Care Lvl 3 Diagnoses Nonsustained ventricular tachycardia I47.2 Acute HFrEF (heart failure with reduced ejection fraction) I50.21 ST elevation (STEMI) myocardial infarction I21.3 Involved coronary artery: unspecified coronary artery Aspiration into airway T17.908A Hematuria R31.9 (1) ST elevation (STEMI) myocardial infarction Involved coronary artery: unspecified coronary artery Qualified Code(s): I21.3 - ST elevation (STEMI) myocardial infarction of unspecified site
[2020-11-08] MEDS: METOPROLOL TARTRATE 25 MG TAB PO SCH ×3 (09:12→21:49)
[2020-11-08] MEDS: GABAPENTIN 100 MG CAP PO SCH ×3 (09:12→21:50)
[2020-11-08] MEDS: ATORVASTATIN 40 MG TAB PO SCH (09:13)
[2020-11-08] MEDS: ASPIRIN 81 MG ECTAB PO SCH (09:13)
[2020-11-08] MEDS: lisinopril 5 MG TAB PO SCH (09:14)
[2020-11-08] MEDS: FLUTICASONE/VILANTEROL 100/25MCG 14 PUFFS/INHALER INH SCH (09:14)
[2020-11-08] MEDS: CLOPIDOGREL BISULFATE 75 MG TAB PO SCH (09:14)
[2020-11-08] MEDS: FUROSEMIDE 40 MG in SYRINGE 0 ML IV SCH (09:15)
[2020-11-08] MEDS: MULTIVITAMIN TAB PO SCH (09:15)
[2020-11-08] MEDS: INSULIN ASPART 100 UNITS/ML 3 ML PEN SC SCH ×4 (09:16→22:03)
--- NOTE | 2020-11-08 11:08 | Cardiology Progress Note ---
Date of Service November 08, 2020 Assessment & Plan (1) ST elevation (STEMI) myocardial infarction: Status post drug-eluting stent implantation to left anterior descending artery. Continue ASA, Plavix, Metoprolol tartrate, atorvastatin. (2) Acute HFrEF (heart failure with reduced ejection fraction): Ejection fraction 29%. Fluid balance -1300 cc overnight. Renal function and electrolytes remained stable. Intravenous nitroglycerin infusion discontinued. (3) LBBB (left bundle branch block): Chronic. (4) Nonsustained ventricular tachycardia: Replace potassium and magnesium as needed. Continue metoprolol. (5) Hematuria: Partially calcified 2.1 cm right renal mass noted. Consider urology consultation. (6) Aspiration into airway: Continue antibiotics as per internal medicine/critical care. Admission and Anticipated Discharge Date Admission Date: November 05, 2020 Subjective Patient seen and examined at the bedside. Denies chest pain or unusual shortness of breath. Telemetry reveals sinus rhythm in the 90s. Tolerating metoprolol 25 mg twice daily. Fluid balance -1365 cc. Blood-tinged urine noted in Esquivel bag. Tolerating Lasix 40 mg daily. Hemoglobin remained stable. Patient denies orthopnea or PND. No palpitations or lightheadedness. Offers no complaints. Eating small portions of meals. Appetite remains poor. Review of Systems Review of Systems: All systems reviewed & are unremarkable except as noted in HPI & below Physical Exam Constitutional: well nourished; no acute distress Respiratory: no respiratory distress and no labored breathing Auscultation: lungs clear to auscultation bilaterally; no crackles, no rales, no rhonchi and no wheezes Cardiovascular: Rate/Rhythm: regular rate and regular rhythm Heart Sounds: normal S1 and normal S2; no murmur Vessels: no JVD Extremities: no edema Gastrointestinal (Abdomen): Inspection/Auscultation: abdomen normal to inspection and normal bowel sounds; abdomen not distended Percussion/Palpation: abdomen soft; abdomen nontender, no guarding and abdomen not rigid Skin: no rashes, warm and dry Neurologic: CN's II-XI intact bilaterally and moves all extremities; no focal motor deficits Motor/Sensory: no tremor Psychiatric: A+Ox3, euthymic affect Results & Data ([facility]) Vital Signs (Past 12 Hours) Vital Signs Temp Pulse Resp BP Pulse Ox 11/08/20 10:00 91 H 21 113/63 92 11/08/20 09:00 93 H 22 106/59 L 95 11/08/20 08:00 102 H 18 112/64 93 11/08/20 07:00 83 18 93/57 L 92 11/08/20 06:00 37 C 81 18 89/56 L 88 L 11/08/20 05:00 84 20 110/66 88 L 11/08/20 04:00 37 C 77 19 95/50 L 96 11/08/20 03:00 78 20 90/57 L 96 11/08/20 02:00 80 22 96/58 L 95 11/08/20 01:00 88 21 113/69 94 11/08/20 00:00 84 21 100/60 96 11/07/20 23:07 80 (1) ST elevation (STEMI) myocardial infarction Involved coronary artery: unspecified coronary artery Qualified Code(s): I21.3 - ST elevation (STEMI) myocardial infarction of unspecified site
--- NOTE | 2020-11-08 15:51 | Hospitalist Progress Note ---
Date of Service November 08, 2020 Assessment & Plan (1) ST elevation (STEMI) myocardial infarction: Cath procedure on admission with stent placed in LAD lesion. Continues to have nonsustained V. tach on telemetry. Cont DAPT, Lipitor 40, YRN and metoprolol. Heart rate has improved into the 80s. (2) Acute HFrEF (heart failure with reduced ejection fraction): STEMI with reduced ejection fraction to roughly 30%. Continues on diuresis with intravenous furosemide. strict I's and O's, continue low-salt diet and daily standing weights. (3) Nonsustained ventricular tachycardia: Likely a result of recent cardiac insult and ongoing poor ejection fraction. Continue daily BMP with goal to keep potassium around 4 and magnesium over 2. Continue guideline directed medical therapy. Continue telemetry monit oring. Beta-akil titrated upward to 25 mg p.o. 3 times daily. (4) Aspiration into airway: Augmentin transition to ceftriaxone per pulmonology. She continues to require minimal supplemental oxygen (5) Hypertension: Controlled on current therapies. (6) Metabolic syndrome: Admitted with hyperglycemia-A1C 6.3. Cont carb coverage and correction factor with Novolog. Now that she is back in ICU, continue per ICU protocol. (7) DVT prophylaxis: Lovenox Full code Disposition-to home when medically stable. Meenakshi Kim DO [facility] Hospitalist Admission and Anticipated Discharge Date Admission Date: November 05, 2020 Subjective 89 yo F who presents with STEMI s/p cath with MARIETTA to LAD Denies shortness of breath Productive coughing today-feels she is appropriately expectorating what needs to come out. Denies chest pain Tolerating PO Review of Systems Review of Systems: All systems reviewed & are unremarkable except as noted in Subjective Physical Exam Physical Exam: CONSTITUTIONAL: WNWD, vitals as above, generally well- appearing EYES: normal conjunctivae, no scleral icterus ENT: external ear and nose normal, MMM RESPIRATORY: clear to auscultation bilaterally, no crackles, rales or wheezes, normal respiratory effort CARDIOVASCULAR: regular rate and rhythm, S1 and 2 heard without murmurs, gallops or rubs, no JVD, no peripheral edema GASTROINTESTINAL: soft, nontender, nondistended, no guarding. MUSCULOSKELETAL: strength 5/5 throughout, head is normocephalic and atraumatic SKIN: warm and dry NEUROLOGIC: CN 2-12 grossly intact, no sensory deficit, normal cognition, normal speech PSYCHIATRIC: alert cooperative and oriented to person, place and time. Results & Data Results & Data ([facility]) Vital Signs (Past 12 Hours) Vital Signs Temp Pulse Resp BP Pulse Ox 11/08/20 15:07 89 14 95/64 L 94 11/08/20 14:00 81 19 94/54 L 87 L 11/08/20 13:00 73 20 88/55 L 95 11/08/20 12:23 80 19 86/46 L 95 11/08/20 12:00 75 19 83/50 L 11/08/20 11:00 86 21 111/68 91 11/08/20 10:00 91 H 21 113/63 92 11/08/20 09:00 93 H 22 106/59 L 95 11/08/20 08:00 102 H 18 112/64 93 11/08/20 07:00 83 18 93/57 L 92 11/08/20 06:00 37 C 81 18 89/56 L 88 L 11/08/20 05:00 84 20 110/66 88 L 11/08/20 04:00 37 C 77 19 95/50 L 96 Laboratory Results Short CBC 11/08/20 Range/Units 04:54 WBC 16.36 H (4.8-10.8) K/uL Hgb 13.1 (12.0-16.0) g/dL Hct 38.5 (37-47) % Plt Count 267 (130-400) K/uL BMP 11/08/20 04:54 Sodium 135 L Potassium 3.6 D Chloride 101 Carbon Dioxide 30 BUN 23 H Creatinine 0.87 Glucose 111 H Calcium 8.2 L Medications Administered Current Inpatient Medications Acetaminophen (Acetaminophen 325 Mg Tab) 650 mg PO Q4H PRN PRN Reason: MILD Pain (Scale 1,2,3) Stop: 12/05/20 23:30 Last Admin: 11/08/20 00:45 Dose: 650 mg Documented by: Albuterol (Albut/Ipratrop 3mg/0.5mg Neb 3 Ml Vial) 3 ml NEB Q4R PRN PRN Reason: Wheezing Stop: 12/06/20 00:05 Last Admin: 11/06/20 00:31 Dose: 3 ml Documented by: Alprazolam (Alprazolam 0.25 Mg Tablet) 0.25 mg PO HS PRN PRN Reason: Sleep Stop: 12/05/20 23:54 Last Admin: 11/08/20 00:45 Dose: 0.25 mg Documented by: Aspirin (Aspirin 81 Mg Ectab) 81 mg PO QAM [facility] Stop: 12/06/20 08:59 Last Admin: 11/08/20 09:13 Dose: 81 mg Documented by: Atorvastatin Calcium (Atorvastatin 40 Mg Tab) 40 mg PO QAM [facility] Stop: 12/06/20 08:59 Last Admin: 11/08/20 09:13 Dose: 40 mg Documented by: Clopidogrel Bisulfate (Clopidogrel Bisulfate 75 Mg Tab) 75 mg PO QAM [facility] Stop: 12/06/20 08:59 Last Admin: 11/08/20 09:14 Dose: 75 mg Documented by: Dextrose (Dextrose 50% 50 Ml Syringe) 25 - 50 ml IV UD PRN; Protocol PRN Reason: Hypoglycemia Protocol Stop: 12/06/20 00:10 Enoxaparin Sodium (Enoxaparin Inj 30 Mg/0.3 Ml Syr) 30 mg SQ [facility] Stop: 12/06/20 08:59 Last Admin: 11/06/20 09:00 Dose: 30 mg Documented by: Fluticasone/Vilanterol (Fluticasone/Vilanterol 100/25mcg 14 Puffs/Inhaler) 1 puffs INH DAILY [facility] Stop: 12/06/20 08:59 Last Admin: 11/08/20 09:14 Dose: 1 puffs Documented by: Gabapentin (Gabapentin 100 Mg Cap) 100 mg PO TID [facility] Stop: 12/06/20 08:59 Last Admin: 11/08/20 09:12 Dose: 100 mg Documented by: Glucagon (Glucagon For Inj 1 Mg Vial) 1 mg SQ UD PRN; Protocol PRN Reason: Hypoglycemia Protocol Stop: 12/06/20 00:10 Glucose (Glucose 10 Tabs/Tube) 4 - 8 tabs PO UD PRN; Protocol PRN Reason: Hypoglycemia Protocol Stop: 12/06/20 00:10 Glucose (Glucose 40% Gel 15 Gm Tube) 15 - 30 gm PO UD PRN; Protocol PRN Reason: Hypoglycemia Protocol Stop: 12/06/20 00:10 Furosemide 40 mg/ Syringe 4 mls @ 4 mls/min IV DAILY [facility] Stop: 12/07/20 09:59 Last Admin: 11/08/20 09:15 Dose: 4 mls/min Documented by: Ceftriaxone Sodium 1,000 mg/ (Dextrose) 60 mls @ 120 mls/hr IV TODAY@1600 [facility] Stop: 11/12/20 16:29 Last Infusion: 11/07/20 17:41 Dose: Infused Documented by: Prochlorperazine 5 mg/ Syringe 5 mls @ 5 mls/min IV Q4H PRN PRN Reason: Nausea And Vomiting Stop: 12/07/20 11:56 Last Admin: 11/08/20 11:32 Dose: 5 mls/min Documented by: Insulin Aspart (Insulin Aspart 100 Units/Ml 3 Ml Pen) 0 units SC ACHS [facility] Stop: 12/06/20 00:14 Last Admin: 11/08/20 11:32 Dose: Not Given Documented by: Lisinopril (Lisinopril 5 Mg Tab) 5 mg PO QAM [facility] Stop: 12/06/20 08:59 Last Admin: 11/08/20 09:14 Dose: 5 mg Documented by: Metoprolol Tartrate (Metoprolol Tartrate 25 Mg Tab) 25 mg PO TID [facility] Stop: 12/06/20 20:59 Last Admin: 11/08/20 15:12 Dose: Not Given Documented by: Miscellaneous (Carbohydrates For Hypoglycemia ) 15 - 30 gm PO UD PRN PRN Reason: Hypoglycemia Protocol Stop: 12/06/20 00:10 Multivitamins (Multivitamin Tab) 1 tab PO DAILY [facility] Stop: 12/06/20 08:59 Last Admin: 11/08/20 09:15 Dose: 1 tab Documented by: Ondansetron HCl (Ondansetron Inj 2 Mg/Ml 2 Ml Vial) 4 mg IV Q6H PRN PRN Reason: Nausea And Vomiting Stop: 12/06/20 00:23 Last Admin: 11/07/20 08:57 Dose: 4 mg Documented by: (1) ST elevation (STEMI) myocardial infarction Involved coronary artery: unspecified coronary artery Qualified Code(s): I21.3 - ST elevation (STEMI) myocardial infarction of unspecified site
[2020-11-08] MEDS: cefTRIAXone SODIUM 1,000 MG in DEXTROSE 5% 50 ML IV SCH (16:56)
[2020-11-09] MEDS: FUROSEMIDE 40 MG in SYRINGE 0 ML IV SCH (08:21)
[2020-11-09] MEDS: ASPIRIN 81 MG ECTAB PO SCH (08:22)
[2020-11-09] MEDS: ATORVASTATIN 40 MG TAB PO SCH (08:23)
[2020-11-09] MEDS: lisinopril 5 MG TAB PO SCH (08:23)
[2020-11-09] MEDS: CLOPIDOGREL BISULFATE 75 MG TAB PO SCH (08:23)
[2020-11-09] MEDS: METOPROLOL TARTRATE 25 MG TAB PO SCH ×3 (08:23→20:40)
[2020-11-09] MEDS: GABAPENTIN 100 MG CAP PO SCH ×3 (08:23→20:40)
[2020-11-09] MEDS: MULTIVITAMIN TAB PO SCH (08:24)
[2020-11-09] MEDS: FLUTICASONE/VILANTEROL 100/25MCG 14 PUFFS/INHALER INH SCH (08:24)
[2020-11-09] MEDS: INSULIN ASPART 100 UNITS/ML 3 ML PEN SC SCH ×4 (08:26→20:38)
--- NOTE | 2020-11-09 11:27 | Cardiology Progress Note ---
Date of Service November 09, 2020 Assessment & Plan (1) ST elevation (STEMI) myocardial infarction: Status post drug-eluting stent implantation to left anterior descending artery. Continue ASA, Plavix, Metoprolol tartrate, atorvastatin. (2) Acute HFrEF (heart failure with reduced ejection fraction): Ejection fraction 29%. Fluid balance -1390 cc overnight. Intravenous nitroglycerin infusion discontinued. Repeat basic metabolic panel. Consider transition to oral diuretic therapy and addition of low-dose Aldactone in the next 24-48 hours pending review of labs. Case reviewed with patient's daughter, Susie, at length via telephone. We also discussed potential application of LifeVest prior to discharge. She feels her mother would be a good candidate. She lives nearby and is willing to participate in her medical care. I will discuss further with patient in a.m. (3) LBBB (left bundle branch block): Chronic. (4) Nonsustained ventricular tachycardia: No recurrence per review of telemetry. Replace potassium and magnesium as needed. Continue metoprolol. (5) Hematuria: Partially calcified 2.1 cm right renal mass noted. Consider urology consultation. (6) Aspiration into airway: Continue antibiotics as per internal medicine/critical care. Admission and Anticipated Discharge Date Admission Date: November 05, 2020 Subjective Patient seen and examined the bedside. Feeling better today. Appetite improved. Fluid balance -1390 cc. There are no a.m. labs for review. Nursing contact me with concerns regarding ST changes on monitor. Repeat ECG demonstrates incomplete left bundle branch block with persistent ST elevation. Patient denies any anginal symptoms. Offers no new concerns/complaints. Telemetry reveals sinus rhythm. No sustained dysrhythmias. Review of Systems Review of Systems: All systems reviewed & are unremarkable except as noted in Subjective Physical Exam Constitutional: well nourished; no acute distress Respiratory: no respiratory distress and no labored breathing Auscultation: lungs clear to auscultation bilaterally; no crackles, no rales, no rhonchi and no wheezes Cardiovascular: Rate/Rhythm: regular rate and regular rhythm Heart Sounds: normal S1 and normal S2; no murmur Vessels: no JVD Extremities: no edema Gastrointestinal (Abdomen): Inspection/Auscultation: abdomen normal to inspection and normal bowel sounds; abdomen not distended Percussion/Palpation: abdomen soft; abdomen nontender, no guarding and abdomen not rigid Skin: no rashes, warm and dry Neurologic: CN's II-XI intact bilaterally and moves all extremities; no focal motor deficits Motor/Sensory: no tremor Psychiatric: A+Ox3, euthymic affect Results & Data ([facility]) Vital Signs (Past 12 Hours) Vital Signs Temp Pulse Pulse Resp BP BP Pulse Ox 11/09/20 08:00 36.4 C L 68 68 18 113/70 94 11/09/20 04:00 36.5 C 11/09/20 03:18 74 18 100/65 95 11/09/20 00:00 36.5 C 84 11/08/20 23:52 78 16 94/61 L 97 (1) ST elevation (STEMI) myocardial infarction Involved coronary artery: unspecified coronary artery Qualified Code(s): I21.3 - ST elevation (STEMI) myocardial infarction of unspecified site
[2020-11-09 12:12] LABS: BUN Creatinine Ratio 29.4 (10-20); Calcium 9.2 mg/dl (8.5-10.1); Creatinine Clr Calc Pharmacy 34.8 ml/min; Est GFR (African American) 65.7; Est GFR (Non-African American) 56.7; Potassium 3.6 mmol/L (3.5-5.1)
[2020-11-09] MEDS: cefTRIAXone SODIUM 1,000 MG in DEXTROSE 5% 50 ML IV SCH (16:47)
--- NOTE | 2020-11-09 20:09 | Hospitalist Progress Note ---
Date of Service November 09, 2020 Assessment & Plan (1) ST elevation (STEMI) myocardial infarction: Cath procedure on admission with stent placed in LAD lesion. Cont DAPT, Lipitor 40, YRN and metoprolol. (2) Acute HFrEF (heart failure with reduced ejection fraction): STEMI with reduced ejection fraction to roughly 30%. Continues on diuresis with intravenous furosemide. continue low-salt diet and daily standing weights. (3) Nonsustained ventricular tachycardia: Likely a result of recent cardiac insult and ongoing poor ejection fraction. Continue daily BMP with goal to keep potassium around 4 and magnesium over 2. Continue guideline directed medical therapy. Continue telemetry monitoring. Cont beta akil TID (4) Aspiration into airway: Cont short course ceftriaxone. She continues to require minimal supplemental oxygen (5) Hypertension: Controlled on current therapies. (6) Metabolic syndrome: Admitted with hyperglycemia-A1C 6.3. Cont carb coverage and correction factor with Novolog. (7) DVT prophylaxis: Lovenox Full code Disposition-to home when medically stable. PT/OT prior to returning home. Meenakshi Kim DO [facility] Hospitalist Admission and Anticipated Discharge Date Admission Date: November 05, 2020 Subjective 89 yo F who presents with STEMI s/p cath with MARIETTA to LAD She is doing well from a breathing standpoint although still on 2L O2. DEnies chest pain Reports being out of bed today Tolerating PO Review of Systems Review of Systems: All systems reviewed & are unremarkable except as noted in Subjective Physical Exam Physical Exam: CONSTITUTIONAL: WNWD, vitals as above, generally well- appearing EYES: normal conjunctivae, no scleral icterus ENT: external ear and nose normal, MMM RESPIRATORY: clear to auscultation bilaterally, no crackles, rales or wheezes, normal respiratory effort CARDIOVASCULAR: regular rate and rhythm, S1 and 2 heard without murmurs, gallops or rubs, no JVD, no peripheral edema GASTROINTESTINAL: soft, nontender, nondistended, no guarding. MUSCULOSKELETAL: strength 5/5 throughout, head is normocephalic and atraumatic SKIN: warm and dry NEUROLOGIC: CN 2-12 grossly intact, no sensory deficit, normal cognition, normal speech PSYCHIATRIC: alert cooperative and oriented to person, place and time. Results & Data Results & Data ([facility]) Vital Signs (Past 12 Hours) Vital Signs Temp Pulse Pulse Pulse Resp BP Pulse Ox 11/09/20 19:28 36.7 C 88 16 125/72 94 11/09/20 16:00 68 11/09/20 12:00 36.6 C 80 18 91/64 L 96 Laboratory Results BMP 11/09/20 11:36 Sodium 132 L Potassium 3.6 Chloride 95 L Carbon Dioxide 30 BUN 27 H Creatinine 0.90 Glucose 134 H Calcium 9.2 Medications Administered Current Inpatient Medications Acetaminophen (Acetaminophen 325 Mg Tab) 650 mg PO Q4H PRN PRN Reason: MILD Pain (Scale 1,2,3) Stop: 12/05/20 23:30 Last Admin: 11/08/20 22:01 Dose: 650 mg Documented by: Albuterol (Albut/Ipratrop 3mg/0.5mg Neb 3 Ml Vial) 3 ml NEB Q4R PRN PRN Reason: Wheezing Stop: 12/06/20 00:05 Last Admin: 11/06/20 00:31 Dose: 3 ml Documented by: Alprazolam (Alprazolam 0.25 Mg Tablet) 0.25 mg PO HS PRN PRN Reason: Sleep Stop: 12/05/20 23:54 Last Admin: 11/08/20 22:01 Dose: 0.25 mg Documented by: Aspirin (Aspirin 81 Mg Ectab) 81 mg PO [facility] Stop: 12/06/20 08:59 Last Admin: 11/09/20 08:22 Dose: 81 mg Documented by: Atorvastatin Calcium (Atorvastatin 40 Mg Tab) 40 mg PO [facility] Stop: 12/06/20 08:59 Last Admin: 11/09/20 08:23 Dose: 40 mg Documented by: Clopidogrel Bisulfate (Clopidogrel Bisulfate 75 Mg Tab) 75 mg PO [facility] Stop: 12/06/20 08:59 Last Admin: 11/09/20 08:23 Dose: 75 mg Documented by: Dextrose (Dextrose 50% 50 Ml Syringe) 25 - 50 ml IV UD PRN; Protocol PRN Reason: Hypoglycemia Protocol Stop: 12/06/20 00:10 Enoxaparin Sodium (Enoxaparin Inj 30 Mg/0.3 Ml Syr) 30 mg SQ [facility] Stop: 12/06/20 08:59 Last Admin: 11/06/20 09:00 Dose: 30 mg Documented by: Fluticasone/Vilanterol (Fluticasone/Vilanterol 100/25mcg 14 Puffs/Inhaler) 1 puffs INH DAILY [facility] Stop: 12/06/20 08:59 Last Admin: 11/09/20 08:24 Dose: 1 puffs Documented by: Gabapentin (Gabapentin 100 Mg Cap) 100 mg PO TID [facility] Stop: 12/06/20 08:59 Last Admin: 11/09/20 13:11 Dose: 100 mg Documented by: Glucagon (Glucagon For Inj 1 Mg Vial) 1 mg SQ UD PRN; Protocol PRN Reason: Hypoglycemia Protocol Stop: 12/06/20 00:10 Glucose (Glucose 10 Tabs/Tube) 4 - 8 tabs PO UD PRN; Protocol PRN Reason: Hypoglycemia Protocol Stop: 12/06/20 00:10 Glucose (Glucose 40% Gel 15 Gm Tube) 15 - 30 gm PO UD PRN; Protocol PRN Reason: Hypoglycemia Protocol Stop: 12/06/20 00:10 Furosemide 40 mg/ Syringe 4 mls @ 4 mls/min IV DAILY [facility] Stop: 12/07/20 09:59 Last Admin: 11/09/20 08:21 Dose: 4 mls/min Documented by: Ceftriaxone Sodium 1,000 mg/ (Dextrose) 60 mls @ 120 mls/hr IV TODAY@1600 [facility] Stop: 11/12/20 16:29 Last Infusion: 11/09/20 18:33 Dose: Infused Documented by: Prochlorperazine 5 mg/ Syringe 5 mls @ 5 mls/min IV Q4H PRN PRN Reason: Nausea And Vomiting Stop: 12/07/20 11:56 Last Admin: 11/08/20 11:32 Dose: 5 mls/min Documented by: Insulin Aspart (Insulin Aspart 100 Units/Ml 3 Ml Pen) 0 units SC ACHS [facility] Stop: 12/06/20 00:14 Last Admin: 11/09/20 16:47 Dose: 3 units Documented by: Lisinopril (Lisinopril 5 Mg Tab) 5 mg PO QAM [facility] Stop: 12/06/20 08:59 Last Admin: 11/09/20 08:23 Dose: 5 mg Documented by: Metoprolol Tartrate (Metoprolol Tartrate 25 Mg Tab) 25 mg PO TID [facility] Stop: 12/06/20 20:59 Last Admin: 11/09/20 13:11 Dose: 25 mg Documented by: Miscellaneous (Carbohydrates For Hypoglycemia ) 15 - 30 gm PO UD PRN PRN Reason: Hypoglycemia Protocol Stop: 12/06/20 00:10 Multivitamins (Multivitamin Tab) 1 tab PO DAILY [facility] Stop: 12/06/20 08:59 Last Admin: 11/09/20 08:24 Dose: 1 tab Documented by: Ondansetron HCl (Ondansetron Inj 2 Mg/Ml 2 Ml Vial) 4 mg IV Q6H PRN PRN Reason: Nausea And Vomiting Stop: 12/06/20 00:23 Last Admin: 11/07/20 08:57 Dose: 4 mg Documented by: (1) ST elevation (STEMI) myocardial infarction Involved coronary artery: unspecified coronary artery Qualified Code(s): I21.3 - ST elevation (STEMI) myocardial infarction of unspecified site
[2020-11-09] MEDS: ALPRAZolam 0.25 MG TABLET PO PRN (22:13)
--- NOTE | 2020-11-10 06:49 | Electrocardiogram Report ---
Test Reason : Blood Pressure : / mmHG Vent. Rate : 085 BPM Atrial Rate : 085 BPM P-R Int : 154 ms QRS Dur : 118 ms QT Int : 364 ms P-R-T Axes : 046 -02 027 degrees QTc Int : 433 ms Sinus rhythm with Premature atrial complexes with Aberrant conduction Anterior infarct Abnormal ECG When compared with ECG of 07-NOV-2020 04:17, Aberrant conduction is now Present Left bundle branch block is no longer Present Anterolateral infarct is now Present Confirmed by Sky Crouch ([id number]) on 11/10/2020 6:49:27 AM Referred By: REFERRED SELF Confirmed By:Sky Crouch
--- NOTE | 2020-11-10 08:01 | XRay Report ---
XR chest 1V portable HISTORY: Shortness of breath. COMPARISON: 11/07/2020. FINDINGS: No pneumothorax. Trace bilateral pleural effusions have improved. The heart remains borderl ine enlarged. No evidence for pulmonary edema. No new focal lung consolidations to suggest pneumonia. IMPRESSION: 1. No evidence for pulmonary edema. 2. Trace bilateral pleural effusions have improved. ACT 112: Negative or not required by law. Electronically signed by: Lucas Mathew M.D. 11/10/2020 7:59 AM
[2020-11-10] MEDS: METOPROLOL TARTRATE 25 MG TAB PO SCH ×3 (08:21→20:21)
[2020-11-10] MEDS: ASPIRIN 81 MG ECTAB PO SCH (08:21)
[2020-11-10] MEDS: GABAPENTIN 100 MG CAP PO SCH ×3 (08:21→20:19)
[2020-11-10] MEDS: lisinopril 5 MG TAB PO SCH (08:22)
[2020-11-10] MEDS: CLOPIDOGREL BISULFATE 75 MG TAB PO SCH (08:22)
[2020-11-10] MEDS: ATORVASTATIN 40 MG TAB PO SCH (08:22)
[2020-11-10] MEDS: MULTIVITAMIN TAB PO SCH (08:22)
[2020-11-10] MEDS: INSULIN ASPART 100 UNITS/ML 3 ML PEN SC SCH ×4 (08:23→20:18)
[2020-11-10] MEDS: FLUTICASONE/VILANTEROL 100/25MCG 14 PUFFS/INHALER INH SCH (08:23)
[2020-11-10 11:49] LABS: BUN Creatinine Ratio 31.7 (10-20); Calcium 9.3 mg/dl (8.5-10.1); Creatinine Clr Calc Pharmacy 37.2 ml/min; Est GFR (African American) 70.4; Est GFR (Non-African American) 60.7; Magnesium 2.3 mg/dl (1.8-2.4); Potassium 3.6 mmol/L (3.5-5.1)
--- NOTE | 2020-11-10 12:54 | Hospitalist Progress Note ---
Date of Service November 10, 2020 Assessment & Plan (1) ST elevation (STEMI) myocardial infarction: Cath procedure on admission with stent placed in LAD lesion. Cont DAPT, Lipitor 40, YRN and metoprolol. (2) Acute HFrEF (heart failure with reduced ejection fraction): STEMI with reduced ejection fraction to roughly 30%. Continue IV Lasix 40 mg daily. Continue to monitor ins and outs along with daily weights. Can likely be transitioned to oral today. (3) Nonsustained ventricular tachycardia: In the setting of recent STEMI and poor ejection fraction. Continue with metoprolol 25 mg 3 times daily. (4) Aspiration into airway: Currently weaned down to room air. Was on oxygen 2 L of nasal cannula overnight. Continue with ceftriaxone for now. (5) Hypertension: Controlled on current therapies. (6) Metabolic syndrome: Admitted with hyperglycemia-A1C 6.3. Cont carb coverage and correction factor with Novolog. Partially calcified 2.1 cm right renal mass Can follow-up with urology as an outpatient. (7) DVT prophylaxis: Lovenox Full code Disposition-to home when medically stable. Admission and Anticipated Discharge Date Admission Date: November 05, 2020 Subjective Patient is doing okay. She is resting comfortably. Currently on room air. Hemodynamically stable. Denies any chest pain, abdominal pain, nausea, vomiting, cough or any significant shortness of breath. Review of Systems Review of Systems: All systems reviewed & are unremarkable except as noted in HPI & below Physical Exam Physical Exam: General: Awake and alert, does not appear to be in any distress HENT: NCAT, MMM, EOMI Eyes: PERRLA Neck: Supple, normal range of motion CVS: normal rate and rhythm Resp: b/l good breath sounds Abdomen: Soft, nondistended nontender Extremities: No c/c/e Neuro: face symmetric, strength grossly equal, no focal deficit Skin: warm and dry, no rashes/lesions/errythema Esquivel catheter in place. Results & Data Results & Data ([facility]) Vital Signs (Past 12 Hours) Vital Signs Temp Pulse Resp BP Pulse Ox 11/10/20 11:46 36.6 C 76 18 101/57 L 92 11/10/20 11:28 92 11/10/20 07:21 36.9 C 85 18 109/71 95 11/10/20 03:01 36.7 C 83 20 116/70 97 (1) ST elevation (STEMI) myocardial infarction Involved coronary artery: unspecified coronary artery Qualified Code(s): I21.3 - ST elevation (STEMI) myocardial infarction of unspecified site
[2020-11-10] MEDS ORDERED: SPIRONOLACTONE 12.5 MG TAB PO ONE (14:56)
--- NOTE | 2020-11-10 15:04 | Cardiology Progress Note ---
Date of Service November 10, 2020 Assessment & Plan (1) ST elevation (STEMI) myocardial infarction: Status post drug-eluting stent implantation to left anterior descending artery. Continue ASA, Plavix, Metoprolol tartrate, atorvastatin. (2) Acute HFrEF (heart failure with reduced ejection fraction): Ejection fraction 29%. Appears compensated today. Intravenous Lasix on hold. Intravenous nitroglycerin infusion discontinued. Recommend addition of low-dose Aldactone, 12.5 mg daily. First dose now. Repeat basic metabolic panel in a.m. Indication for LifeVest (external defibrillator) discussed with patient. She is agreeable. (3) LBBB (left bundle branch block): Chronic. (4) Nonsustained ventricular tachycardia: No recurrence per review of telemetry. Replace potassium and magnesium as needed. Continue metoprolol. (5) Hematuria: Partially calcified 2.1 cm right renal mass noted. Consider urology consultati on. (6) Aspiration into airway: Continue antibiotics as per internal medicine/critical care. Admission and Anticipated Discharge Date Admission Date: November 05, 2020 Subjective Patient seen and examined at the bedside. Fluid balance positive approximately 119 cc overnight. A.m. Lasix on hold. She is feeling well from a cardiovascular perspective. Telemetry demonstrates sinus rhythm at 90 bpm. Patient denies chest pain or unusual shortness of breath. Ambulating in her room without restriction. Appetite improving. No orthopnea or PND. Renal function remained stable. Review of Systems Review of Systems: All systems reviewed & are unremarkable except as noted in Subjective Physical Exam Constitutional: well nourished; no acute distress Respiratory: no respiratory distress and no labored breathing Auscultation: lungs clear to auscultation bilaterally; no crackles, no rales, no rhonchi and no wheezes Cardiovascular: Rate/Rhythm: regular rate and regular rhythm Heart Sounds: normal S1 and normal S2; no murmur Vessels: no JVD Extremities: no edema Gastrointestinal (Abdomen): Inspection/Auscultation: abdomen normal to inspection and normal bowel sounds; abdomen not distended Percussion/Palpation: abdomen soft; abdomen nontender, no guarding and abdomen not rigid Skin: no rashes, warm and dry Neurologic: CN's II-XI intact bilaterally and moves all extremities; no focal motor deficits Motor/Sensory: no tremor Psychiatric: A+Ox3, euthymic affect Results & Data ([facility]) Vital Signs (Past 12 Hours) Vital Signs Temp Pulse Resp BP Pulse Ox 11/10/20 11:46 36.6 C 76 18 101/57 L 92 11/10/20 11:28 92 11/10/20 07:21 36.9 C 85 18 109/71 95 11/10/20 03:01 36.7 C 83 20 116/70 97 (1) ST elevation (STEMI) myocardial infarction Involved coronary artery: unspecified coronary artery Qualified Code(s): I21.3 - ST elevation (STEMI) myocardial infarction of unspecified site
[2020-11-10] MEDS: cefTRIAXone SODIUM 1,000 MG in DEXTROSE 5% 50 ML IV SCH (17:33)
[2020-11-10] MEDS: ALPRAZolam 0.25 MG TABLET PO PRN (20:18)
[2020-11-11 06:57] LABS: Basophils # (auto) 0.04 K/uL (0-0.2); Basophils % (auto) 0.3 %; Eosinophils # (auto) 0.53 K/uL (0-0.5); Eosinophils % (auto) 4.3 %; Hematocrit (blood only) 40.4 % (37-47); Hemoglobin 13.7 g/dL (12.0-16.0); Immature Granulocytes # (auto) 0.04 K/uL (0.00-0.02); Immature Granulocytes % (auto) 0.3 %; Lymphocytes # (auto) 2.01 K/uL (1.2-3.4); Lymphocytes % (auto) 16.2 %; Mean Corpuscular Hemoglobin 31.6 pg (25-34); Mean Corpuscular Hgb Conc 33.9 g/dL (32-36); Mean Corpuscular Volume 93.3 fL (80-100); Mean Platelet Volume 9.1 fL (7.4-10.4); Monocytes # (auto) 1.25 K/uL (0.11-0.59); Monocytes % (auto) 10.1 %; Neutrophils # (auto) 8.54 K/uL (1.4-6.5); Neutrophils % (auto) 68.8 %; Platelet Count 299 K/uL (130-400); RDW Coefficient of Variation 13.2 % (11.5-14.5); RDW Standard Deviation 45.5 fL (36.4-46.3); Red Blood Count 4.33 M/uL (4.2-5.4); White Blood Count 12.41 K/uL (4.8-10.8)
[2020-11-11 07:30] LABS: BUN Creatinine Ratio 31.7 (10-20); Calcium 8.7 mg/dl (8.5-10.1); Est GFR (African American) 79.3; Est GFR (Non-African American) 68.5; Potassium 3.5 mmol/L (3.5-5.1)
[2020-11-11] MEDS: INSULIN ASPART 100 UNITS/ML 3 ML PEN SC SCH ×4 (08:40→20:13)
[2020-11-11] MEDS: ATORVASTATIN 40 MG TAB PO SCH (08:41)
[2020-11-11] MEDS: lisinopril 5 MG TAB PO SCH (08:41)
[2020-11-11] MEDS: GABAPENTIN 100 MG CAP PO SCH ×3 (08:41→20:11)
[2020-11-11] MEDS: ASPIRIN 81 MG ECTAB PO SCH (08:41)
[2020-11-11] MEDS: METOPROLOL TARTRATE 25 MG TAB PO SCH ×3 (08:41→20:11)
[2020-11-11] MEDS: CLOPIDOGREL BISULFATE 75 MG TAB PO SCH (08:42)
[2020-11-11] MEDS: FLUTICASONE/VILANTEROL 100/25MCG 14 PUFFS/INHALER INH SCH (08:42)
[2020-11-11] MEDS: SPIRONOLACTONE 12.5 MG TAB PO SCH (08:44)
[2020-11-11] MEDS: MULTIVITAMIN TAB PO SCH (08:44)
--- NOTE | 2020-11-11 12:07 | Cardiology Progress Note ---
Date of Service November 11, 2020 Assessment & Plan (1) ST elevation (STEMI) myocardial infarction: Status post drug-eluting stent implantation to left anterior descending artery. Continue ASA, Plavix, Metoprolol tartrate, atorvastatin. (2) Acute HFrEF (heart failure with reduced ejection fraction): Ejection fraction 29%. Appears compensated today. Transition to oral Lasix, 20 mg daily. Intravenous nitroglycerin infusion discontinued. Continue low-dose Aldactone, 12.5 mg daily. Repeat basic metabolic panel in a.m. Indication for LifeVest (external defibrillator) discussed with patient. She is agreeable. (3) LBBB (left bundle branch block): Chronic. (4) Nonsustained ventricular tachycardia: No recurrence per review of telemetry. Replace potassium and magnesium as needed. Continue metoprolol. (5) Hematuria: Partially calcified 2.1 cm right renal mass noted. Consider urology consultation. (6) Aspiration into airway: Continue antibiotics as per internal medicine/critical care. (7) Paroxysmal atrial tachycardia: Continue beta-akil Admission and Anticipated Discharge Date Admission Date: November 05, 2020 Subjective Patient seen and examined at the bedside. Feeling well. Telemetry demonstrates sinus rhythm with short salvos of paroxysmal atrial tachycardia. Denies any palpitations. No lightheadedness or dizziness. Tolerating current medications including addition of low-dose Aldactone 11/10/2020. Blood pressure remains borderline hypotensive. Review of Systems Review of Systems: All systems reviewed & are unremarkable except as noted in Subjective Physical Exam Constitutional: well nourished; no acute distress Respiratory: no respiratory distress and no labored breathing Auscultation: lungs clear to auscultation bilaterally; no crackles, no rales, no rhonchi and no wheezes Cardiovascular: Rate/Rhythm: regular rate and regular rhythm Heart Sounds: normal S1 and normal S2; no murmur Vessels: no JVD Extremities: no edema Gastrointestinal (Abdomen): Inspection/Auscultation: abdomen normal to inspection and normal bowel sounds; abdomen not distended Percussion/Palpation: abdomen soft; abdomen nontender, no guarding and abdomen not rigid Skin: no rashes, warm and dry Neurologic: CN's II-XI intact bilaterally and moves all extremities; no focal motor deficits Motor/Sensory: no tremor Psychiatric: A+Ox3, euthymic affect Results & Data ([place]) Vital Signs (Past 12 Hours) Vital Signs Temp Pulse Resp BP Pulse Ox 11/11/20 08:00 37.0 C 85 16 96/63 L 96 11/11/20 03:40 37.1 C 84 16 100/65 91 (1) ST elevation (STEMI) myocardial infarction Involved coronary artery: unspecified coronary artery Qualified Code(s): I21.3 - ST elevation (STEMI) myocardial infarction of unspecified site
--- NOTE | 2020-11-11 13:32 | Hospitalist Progress Note ---
Date of Service November 11, 2020 Assessment & Plan (1) ST elevation (STEMI) myocardial infarction: Cath procedure on admission with stent placed in LAD lesion. Cont DAPT, Lipitor 40, YRN and metoprolol. (2) Acute HFrEF (heart failure with reduced ejection fraction): STEMI with reduced ejection fraction to roughly 30%. Transitioned to oral Lasix today 20 mg daily. Continue to monitor ins and outs along with daily weights. Started on low-dose Aldactone 12.5 mg daily. Obtain BMP in the morning. (3) Nonsustained ventricular tachycardia: In the setting of recent STEMI and poor ejection fraction. No further episodes. Doing okay. Continue with metoprolol 25 mg 3 times daily. (4) Aspiration into airway: Currently weaned down to room air. Was on oxygen 2 L of nasal cannula overnight. Continue with ceftriaxone for now. (5) Hypertension: Controlled on current therapies. (6) Metabolic syndrome: Admitted with hyperglycemia-A1C 6.3. Cont carb coverage and correction factor with Novolog. Partially calcified 2.1 cm right renal mass Can follow-up with urology as an outpatient. (7) DVT prophylaxis: Lovenox Full code Disposition-to home when medically stable. Admission and Anticipated Discharge Date Admission Date: November 05, 2020 Subjective Doing okay this morning. Currently on room air. Hemodynamically doing fine. Denies any chest pain, shortness of breath, palpitations on dizziness. Review of Systems Review of Systems: All systems reviewed & are unremarkable except as noted in HPI & below Physical Exam Physical Exam: General: Awake and alert, does not appear to be in any distress HENT: NCAT, MMM, EOMI Eyes: PERRLA Neck: Supple, normal range of motion CVS: normal rate and rhythm Resp: b/l good breath sounds Abdomen: Soft, nondistended nontender Extremities: No c/c/e Neuro: face symmetric, strength grossly equal, no focal deficit Skin: warm and dry, no rashes/lesions/errythema Esquivel catheter in place. Results & Data Results & Data ([facility]) Vital Signs (Past 12 Hours) Vital Signs Temp Pulse Resp BP Pulse Ox 11/11/20 12:07 36.8 C 76 18 104/60 95 11/11/20 08:00 37.0 C 85 16 96/63 L 96 11/11/20 03:40 37.1 C 84 16 100/65 91 (1) ST elevation (STEMI) myocardial infarction Involved coronary artery: unspecified coronary artery Qualified Code(s): I2 1.3 - ST elevation (STEMI) myocardial infarction of unspecified site
[2020-11-11] MEDS: cefTRIAXone SODIUM 1,000 MG in DEXTROSE 5% 50 ML IV SCH (17:04)
--- NOTE | 2020-11-12 06:33 | Electrocardiogram Report ---
Test Reason : Blood Pressure : / mmHG Vent. Rate : 089 BPM Atrial Rate : 089 BPM P-R Int : 150 ms QRS Dur : 098 ms QT Int : 368 ms P-R-T Axes : 058 007 -69 degrees QTc Int : 447 ms Poor data quality, interpretation may be adversely affected Sinus rhythm with Premature atrial complexes Low voltage QRS Anterior infarct Abnormal ECG When compared with ECG of 09-NOV-2020 08:59, ST less elevated in Anterior leads Confirmed by Sky Crouch ([id number]) on 11/12/2020 6:33:29 AM Referred By: REFERRED SELF Confirmed By:Sky Crouch
[2020-11-12 07:48] LABS: BUN Creatinine Ratio 27.2 (10-20); Calcium 8.5 mg/dl (8.5-10.1); Creatinine Clr Calc Pharmacy 46.6 ml/min; Est GFR (African American) 89.9; Est GFR (Non-African American) 77.6; Potassium 3.8 mmol/L (3.5-5.1)
[2020-11-12] MEDS: METOPROLOL TARTRATE 25 MG TAB PO SCH ×3 (08:25→20:34)
[2020-11-12] MEDS: INSULIN ASPART 100 UNITS/ML 3 ML PEN SC SCH ×4 (08:25→21:01)
[2020-11-12] MEDS: GABAPENTIN 100 MG CAP PO SCH ×3 (08:25→20:34)
[2020-11-12] MEDS: CLOPIDOGREL BISULFATE 75 MG TAB PO SCH (08:25)
[2020-11-12] MEDS: FLUTICASONE/VILANTEROL 100/25MCG 14 PUFFS/INHALER INH SCH (08:26)
[2020-11-12] MEDS: lisinopril 5 MG TAB PO SCH (08:26)
[2020-11-12] MEDS: ATORVASTATIN 40 MG TAB PO SCH (08:26)
[2020-11-12] MEDS: ASPIRIN 81 MG ECTAB PO SCH (08:26)
[2020-11-12] MEDS: FUROSEMIDE 20 MG TAB PO SCH (08:26)
[2020-11-12] MEDS: MULTIVITAMIN TAB PO SCH (08:27)
[2020-11-12] MEDS: SPIRONOLACTONE 12.5 MG TAB PO SCH (08:27)
--- NOTE | 2020-11-12 11:52 | Cardiology Progress Note ---
Date of Service November 12, 2020 Assessment & Plan (1) ST elevation (STEMI) myocardial infarction: Status post drug-eluting stent implantation to left anterior descending artery. Continue ASA, Plavix, Metoprolol tartrate, atorvastatin. Outpatient cardiology follow-up 11/19/2020 at [facility]. (2) Acute HFrEF (heart failure with reduced ejection fraction): Ejection fraction 29%. Compensated. Continue Lasix 20 mg daily, Aldactone 12.5 mg daily, and lisinopril 5 mg daily. Transition metoprolol tartrate to Toprol-XL 50 mg daily. LifeVest x3 months with reassessment of left ventricular systolic function and consideration for ICD. (3) LBBB (left bundle branch block): Chronic. (4) Nonsustained ventricular tachycardia: No recurrence per review of telemetry. Continue metoprolol. Lifevest (5) Hematuria: Partially calcified 2.1 cm right renal mass noted. Consider urology consultation. Follow-up outpatient. (6) Paroxysmal atrial tachycardia: Continue beta-akil Admission and Anticipated Discharge Date Admission Date: November 05, 2020 Subjective Patient seen and examined at the bedside. Feeling well from a cardiovascular perspective today. Telemetry demonstrates predominantly sinus rhythm with a left bundle branch block. Occasional 3-4 beat salvos of atrial tachycardia recorded. No associated symptoms. Fluid balance is -315 cc over the past 24 hours. Patient denies chest pain or shortness of breath. She is anxious for discharge. Fitted for LifeVest yesterday. Tolerating medications listed below. Offers no other concerns/complaints. Review of Systems Review of Systems: All systems reviewed & are unremarkable except as noted in Subjective Physical Exam Constitutional: well nourished; no acute distress Respiratory: no respiratory distress and no labored breathing Auscultation: lungs clear to auscultation bilaterally; no crackles, no rales, no rhonchi and no wheezes Cardiovascular: Rate/Rhythm: regular rate and regular rhythm Heart Sounds: normal S1 and normal S2; no murmur Vessels: no JVD Extremities: no edema Gastrointestinal (Abdomen): Inspection/Auscultation: abdomen normal to inspection and normal bowel sounds; abdomen not distended Percussion/Palpation: abdomen soft; abdomen nontender, no guarding and abdomen not rigid Skin: no rashes, warm and dry Neurologic: CN's II-XI intact bilaterally and moves all extremities; no focal motor deficits Motor/Sensory: no tremor Psychiatric: A+Ox3, euthymic affect Results & Data ([facility]) Vital Signs (Past 12 Hours) Vital Signs Temp Pulse Resp BP Pulse Ox 11/12/20 11:33 36.8 C 81 17 105/65 92 11/12/20 07:24 36.7 C 89 18 115/77 93 11/12/20 03:18 36.7 C 77 18 99/63 L 92 (1) ST elevation (STEMI) myocardial infarction Involved coronary artery: unspecified coronary artery Qualified Code(s): I21.3 - ST elevation (STEMI) myocardial infarction of unspecified site
--- NOTE | 2020-11-12 15:50 | Hospitalist Progress Note ---
Date of Service November 12, 2020 Assessment & Plan (1) ST elevation (STEMI) myocardial infarction: admitted with STEMI Cath procedure on admission with stent placed in LAD lesion. - Cont DAPT( aspirin and Plavix ) , Lipitor 40, YRN and metoprolol. (2) Acute HFrEF (heart failure with reduced ejection fraction): severe ischemic cardiomyopathy post STEMI STEMI with reduced ejection fraction to roughly 30%. on Lasix 20 mg daily. cont on low-dose Aldactone 12.5 mg daily. has live vest fitted plan to discharge home tomorrow out patient cardiology follow up scheduled already (3) Nonsustained ventricular tachycardia: In the setting of recent STEMI and poor ejection fraction. Continue with metoprolol 25 mg 3 times daily. (4) Aspiration into airway: no respiratory issues no cough , no fever or chills in room air d/c Abx (5) Hypertension: Controlled on current therapies. (6) Metabolic syndrome: Admitted with hyperglycemia-A1C 6.3. Cont carb coverage and correction factor with Novolog. Partially calcified 2.1 cm right renal mass out pt follow up with Urology (7) DVT prophylaxis: Lovenox Full code Disposition-discharge to home tomorrow tried to reach Daughter over phone to give update -no answer Admission and Anticipated Discharge Date Admission Date: November 05, 2020 Subjective Follow up visit for STEMI/severe ischemic cardiomyopathy: pt seen sitting on chair no complain of chest pain , no SOB , no FERREIRA able to walk in room and in hallway without any discomfort stable vitals no fever or chills Review of Systems Review of Systems: All systems reviewed & are unremarkable except as noted in Subjective Physical Exam Physical Exam: Physical exam: General: No acute distress, alert awake oriented x3 HEENT: PERRLA, EOMI, Heart: Regular S1-S2, no carotid bruit, no JVD, no lower extremity edema life vest present Lungs: Clear to auscultate, no wheeze or rales Abdomen: Soft nontender, no organomegaly Extremity: No cyanosis, no deformity, normal strength 5 out of 5 with upper and lower Neuro: No focal neurological deficit normal speech, normal visual field, Motor strength : normal both upper and lower extremity, sensation intact Psych: Alert awake oriented x3, normal affect Results & Data Results & Data ([facility]) Vital Signs (Past 12 Hours) Vital Signs Temp Pulse Resp BP Pulse Ox 11/12/20 11:33 36.8 C 81 17 105/65 92 11/12/20 07:24 36.7 C 89 18 115/77 93 (1) ST elevation (STEMI) myocardial infarction Involved coronary artery: unspecified coronary artery Qualified Code(s): I21.3 - ST elevation (STEMI) myocardial infarction of unspecified site
[2020-11-12] MEDS: cefTRIAXone SODIUM 1,000 MG in DEXTROSE 5% 50 ML IV SCH (17:19)
[2020-11-12] MEDS: ALPRAZolam 0.25 MG TABLET PO PRN (21:50)
[2020-11-13] MEDS: INSULIN ASPART 100 UNITS/ML 3 ML PEN SC SCH ×2 (08:12→12:09)
[2020-11-13] MEDS: CLOPIDOGREL BISULFATE 75 MG TAB PO SCH (08:13)
[2020-11-13] MEDS: METOPROLOL TARTRATE 25 MG TAB PO SCH (08:13)
[2020-11-13] MEDS: GABAPENTIN 100 MG CAP PO SCH (08:13)
[2020-11-13] MEDS: lisinopril 5 MG TAB PO SCH (08:13)
[2020-11-13] MEDS: MULTIVITAMIN TAB PO SCH (08:13)
[2020-11-13] MEDS: ASPIRIN 81 MG ECTAB PO SCH (08:14)
[2020-11-13] MEDS: FUROSEMIDE 20 MG TAB PO SCH (08:14)
[2020-11-13] MEDS: FLUTICASONE/VILANTEROL 100/25MCG 14 PUFFS/INHALER INH SCH (08:14)
[2020-11-13] MEDS: SPIRONOLACTONE 12.5 MG TAB PO SCH (08:14)
[2020-11-13] MEDS: ATORVASTATIN 40 MG TAB PO SCH (08:14)
[2020-11-13 08:19] LABS: BUN Creatinine Ratio 20.9 (10-20); Calcium 8.9 mg/dl (8.5-10.1); Creatinine Clr Calc Pharmacy 46.2 ml/min; Est GFR (African American) 89.9; Est GFR (Non-African American) 77.6; Potassium 3.8 mmol/L (3.5-5.1)
--- NOTE | 2020-11-13 11:20 | Cardiology Progress Note ---
Date of Service November 13, 2020 Assessment & Plan (1) ST elevation (STEMI) myocardial infarction: Status post drug-eluting stent implantation to left anterior descending artery. Continue ASA, Plavix, Metoprolol tartrate, atorvastatin. Outpatient cardiology follow-up 11/19/2020 at [facility]. (2) Acute HFrEF (heart failure with reduced ejection fraction): Ejection fraction 29%. Compensated. Continue Lasix 20 mg daily, Aldactone 12.5 mg daily, and lisinopril 5 mg daily. Transition metoprolol tartrate to Toprol-XL 50 mg daily. LifeVest x3 months with reassessment of left ventricular systolic function and consideration for ICD. (3) LBBB (left bundle branch block): Chronic. (4) Nonsustained ventricular tachycardia: No recurrence per review of telemetry. Continue metoprolol. Lifevest (5) Hematuria: Partially calcified 2.1 cm right renal mass noted. Consider urology consultation. Follow-up outpatient. (6) Paroxysmal atrial tachycardia: Continue beta-akil Admission and Anticipated Discharge Date Admission Date: November 05, 2020 Subjective Patient seen and examined the bedside. Feeling well from a cardiovascular perspective. Tolerating medications listed below. Requesting discharge. No chest pain or shortness of breath. Denies orthopnea, PND, or palpitations. Review of Systems Review of Systems: All systems reviewed & are unremarkable except as noted in Subjective Physical Exam Constitutional: well nourished; no acute distress Respiratory: no respiratory distress and no labored breathing Auscultation: lungs clear to auscultation bilaterally; no crackles, no rales, no rhonchi and no wheezes Cardiovascular: Rate/Rhythm: regular rate and regular rhythm Heart Sounds: normal S1 and normal S2; no murmur Vessels: no JVD Extremities: no edema Gastrointestinal (Abdomen): Inspection/Auscultation: abdomen normal to inspection and normal bowel sounds; abdomen not distended Percussion/Palpation: abdomen soft; abdomen nontender, no guarding and abdomen not rigid Skin: no rashes, warm and dry Neurologic: CN's II-XI intact bilaterally and moves all extremities; no focal motor deficits Motor/Sensory: no tremor Psychiatric: A+Ox3, euthymic affect Results & Data ([facility]) Vital Signs (Past 12 Hours) Vital Signs Temp Pulse Resp BP Pulse Ox 11/13/20 07:19 36.8 C 85 18 103/63 93 11/13/20 03:38 36.6 C 86 18 103/69 93 11/13/20 03:17 36.7 C 85 18 112/71 94 (1) ST elevation (STEMI) myocardial infarction Involved coronary artery: unspecified coronary artery Qualified Code(s): I21.3 - ST elevation (STEMI) myocardial infarction of unspecified site
--- NOTE | 2020-11-13 13:09 | Hospitalist Progress Note ---
Date of Service November 13, 2020 Assessment & Plan (1) ST elevation (STEMI) myocardial infarction: ST elevation (STEMI) myocardial infarction: Status post drug-eluting stent implantation to left anterior descending artery. Appreciate input from cardiology Continue dual antiplatelets ASA, Plavix, Continue beta-akil and statin Outpatient cardiology follow-up 11/19/2020 at [facility]. Acute HFrEF (heart failure with reduced ejection fraction): Due to acute UT Ejection fraction 29%. Compensated. Continue Lasix 20 mg daily, Aldactone 12.5 mg daily, and lisinopril 5 mg daily. Beta-akil changed to Toprol-XL 50 mg daily. Nonsustained ventricular tachycardia: Post UT, continue beta-akil LifeVest x3 months with reassessment of left ventricular systolic function and consideration for ICD. Right renal mass: Noted in CT abdomen pelvis partially calcified 2.1 cm right renal mass noted. No further episode of hematuria, patient will be followed with urology as an outpatient (2) Acute HFrEF (heart failure with reduced ejection fraction): (3) Nonsustained ventricular tachycardia: In the setting of recent STEMI and poor ejection fraction. patient is fitted with life Continue beta-akil (4) Hypertension: Controlled on current therapies. (5) DVT prophylaxis: Lovenox Disposition Stable to be discharged home today, Updated daughter over phone in detail all questions answered Admission and Anticipated Discharge Date Admission Date: November 05, 2020 Subjective Follow-up visit for ST elevated UT/severe ischemic cardiomyopathy: Patient reports feeling fine no recurrence of chest pain shortness of breath Walking independently with assistance of walker, no dyspnea on exertion stable to be discharged home today Review of Systems Review of Systems: All systems reviewed & are unremarkable except as noted in Subjective Physical Exam Physical Exam: Physical exam: General: No acute distress, alert awake oriented x3 HEENT: PERRLA, EOMI, Heart: Regular S1-S2, no carotid bruit, no JVD, no lower extremity edema life vest present Lungs: Clear to auscultate, no wheeze or rales Abdomen: Soft nontender, no organomegaly Extremity: No cyanosis, no deformity, normal strength 5 out of 5 with upper and lower Neuro: No focal neurological deficit normal speech, normal visual field, Motor strength : normal both upper and lower extremity, sensation intact Psych: Alert awake oriented x3, normal affect Results & Data Results & Data ([facility]) Vital Signs (Past 12 Hours) Vital Signs Temp Pulse Pulse Resp BP BP Pulse Ox 11/13/20 12:36 36.7 C 80 83 18 103/63 93/63 L 96 11/13/20 11:39 36.7 C 83 18 93/63 L 96 11/13/20 07:19 36.8 C 85 18 103/63 93 11/13/20 03:38 36.6 C 86 18 103/69 93 11/13/20 03:17 36.7 C 85 18 112/71 94 (1) ST elevation (STEMI) myocardial infarction Involved coronary artery: unspecified coronary artery Qualified Code(s): I21.3 - ST elevation (STEMI) myocardial infarction of unspecified site
--- NOTE | 2020-11-13 13:11 | Discharge Summary ---
Date of Service November 13, 2020 Admission HPI Per Admitting Provider History obtained from patient and records. Medical history significant for hypertension, chronic left bundle branch block, prediabetes, Last confinement 2013 for asthma exacerbation. 1 week history of bilateral leg swelling and exertional shortness of breath. No cough symptoms. 2 days history of achy substernal pain going to both shoulders with worsening shortness of breath. Patient denies cough symptoms. Patient's family meant to call PCP's office. EMS called for worsening symptoms tonight. Aspirin administered by EMS on route to the hospital. Heart alert called upon arrival at the ER with note of ST elevation on the anterior and lower lateral leads. Patient underwent emergent cardiac catheterization. 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 Subsequent PCI of LAD lesion with MARIETTA performed. Patient currently at ICU room feeling much better. Medical History as above Surgical History : Cystoscopy, hemorrhoidectomy, partial colectomy with anastomosis, cataract surgeries, cholecystectomy Family History : Stroke, lung cancer Personal/Social history : Non-smoker, no EtOH intake, homemaker in her younger years Principal Diagnosis STEMI /HEART ATTACK S/P LAD STENT SEVERE ISCHEMIC CARDIOMYOPATHY Discharge Exam Physical exam: General: No acute distress, alert awake oriented x3 HEENT: PERRLA, EOMI, Heart: Regular S1-S2, no carotid bruit, no JVD, no lower extremity edema Lungs: Clear to auscultate, no wheeze or rales Abdomen: Soft nontender, no organomegaly Extremity: No cyanosis, no deformity, normal strength 5 out of 5 with upper and lower Neuro: No focal neurological deficit normal speech, normal visual field, Motor strength : normal both upper and lower extremity, sensation intact Psych: Alert awake oriented x3, normal affect Discharge Data Allergies Allergy/AdvReac Type Severity Reaction Status Date / Time codeine Allergy Mild 0 Verified 11/05/20 22:15 aminosalicylic acid Allergy PT TAKES Verified 11/05/20 22:15 ASA AT HOME W/O PROBLEM Consultations 11/05/20 22:23 Consult Cardiac Catheterization Stat 11/05/20 23:31 Consult Recycler Routine 11/05/20 23:34 Consult Recycler Routine 11/05/20 23:38 Consult Cardiac Rehabilitation Routine 11/06/20 12:20 Consult Cardiology Routine 11/07/20 12:01 Consult Palliative Care Routine Procedures Performed Operation Date: 11/05/20 22:15 Actual Procedures p Cath, Left with Cors and Vent - Efren Alexander MD s Cineradiography w/Routine Exam - Efren Alexander MD s Aspiration/PCI w/MARIETTA for Stemi - Efren Alexander MD Ordered Studies 11/05/20 22:07 CL Cath Imgs for PACS use only Stat 11/07/20 07:33 CT abd pelvis wo con Urgent Hospital Course (1) ST elevation (STEMI) myocardial infarction: ST elevation (STEMI) myocardial infarction: Status post drug-eluting stent implantation to left anterior descending artery. Appreciate input from cardiology Continue dual antiplatelets ASA, Plavix, Continue beta-akil and statin Outpatient cardiology follow-up 11/19/2020 at [facility]. Acute HFrEF (heart failure with reduced ejection fraction): Due to acute MD Ejection fraction 29%. Compensated. Continue Lasix 20 mg daily, Aldactone 12.5 mg daily, and lisinopril 5 mg daily. Beta-akil changed to Toprol-XL 50 mg daily. Nonsustained ventricular tachycardia: Post MD, continue beta-akil LifeVest x3 months with reassessment of left ventricular systolic function and consideration for ICD. Right renal mass: Noted in CT abdomen pelvis partially calcified 2.1 cm right renal mass noted. No further episode of hematuria, patient will be followed with urology as an outpatient (2) Acute HFrEF (heart failure with reduced ejection fraction): severe ischemic cardiomyopathy post STEMI STEMI with reduced ejection fraction to roughly 30%. on Lasix 20 mg daily. cont on low-dose Aldactone 12.5 mg daily. has live vest fitted plan to discharge home tomorrow out patient cardiology follow up scheduled already (3) Nonsustained ventricular tachycardia: In the setting of recent STEMI and poor ejection fraction. patient is fitted with life Continue beta-akil (4) Hypertension: Controlled on current therapies. (5) DVT prophylaxis: Lovenox Disposition Stable to be discharged home today, Updated daughter over phone in detail all questions answered Total Time Total Time Spent Total Time Spent (In Minutes): Approximately 40 minutes Total Time Includes: Examination of the Patient, Discharge Planning and Medication Reconciliation Discharge Plan Discharge Items Patient Disposition: Home - Self-Care Reason For Visit: ACS Discharge Diagnosis: STEMI /HEART ATTACK S/P LAD STENT SEVERE ISCHEMIC CARDIOMYOPATHY Condition on Discharge: Good Activity: As commented below Non-emergency contact: Primary Care Provider Call non-emergency contact if: you have any medication questions Follow-up/Referrals: Gael Flower DO [Confidential Investigator] - 11/19/20 9:00 am (Date & Time 11/19/2020 9:00 AM Provider Gael Flower DO Department Cardiology, [facility] ) Rosa Mendoza DO [Primary Care Provider] - 11/18/20 11:10 am ( Date & Time 11/18/2020 11:10 AM Provider Rosa Mendoza DO Department Internal Medicine [facility] ) Diet: Heart Healthy Add Attending Provider Instructions: Call your Primary Care doctor if any of the following symptoms or problems start or get worse: * Shortness of breath or difficulty breathing * Wake up at night short of breath * Chest pain * Cough * Swelling of your hands, feet, or legs * More fatigued or tired with your normal activity * Palpitations - sudden fast heart beats WEIGHT * Weigh yourself every morning after using the bathroom. * Use the same scale. * Wear the same amount of clothing. * Write your weight down on a chart. * Call your Primary Care doctor if you gain more than 2-3 pounds in 1-2 days. MEDICATIONS * Use this discharge instruction sheet for medication instructions. * Take your medications at the time your doctor ordered. * Do not skip a dose of your medicines. * If you miss a dose of medicine, take it as soon as possible, but DO NOT DOUBLE A DOSE. * Read your medicine information when you get home. * Know all of the side effects of your medicine. If in doubt, ask your pharmacist * Call your Primary Care doctor's office if you have any side effects. * Be sure all of your doctors know what medicine and herbs you take (including cold, flu, and herbal medicine). Take the following with you to your follow-up doctor appointments: * Weight Chart * Medication List * List of questions Do not drink excessive alcohol, beer or wine. Addtl Board Filler Provider Instructions: Please take all medications as instructed on discharge list below. It is recommended that you follow-up with your primary care physician within 1-2 weeks of hospital discharge to ensure you are still doing well. Please call if you have any questions or problems. 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 You are diagnosed with Heart failure Continue to take Lasix 20 mg 1 tablet daily, Aldactone 12.5 mg 1 tablet daily, and lisinopril 1 tablet 5 mg daily. these are water pills , which may make you urinate more , take them in morning please keep LifeVest on for next x3 months Renal Mass : Partially calcified 2.1 cm right renal mass noted. in CT abdomen /pelvis will need to Follow up with Urology in clinic Lab worK : basic metabolic panel in a week please notify your family physician for any blood in urine , dark to tarry coloured stool , these are signs of bleeding complications form the medications ( Aspirin /Plavix ) . Pending Studies at Discharge: No Stand-Alone Forms: [facility], Smoking Cessation Medications and DC Order Prescriptions: New clopidogrel 75 mg Tablet 75 mg PO QAM Qty: 30 RF: 3 atorvastatin 40 mg Tablet 40 mg PO QAM Qty: 30 RF: 0 lisinopril [Zestril] 5 mg Tablet 5 mg PO QAM Qty: 30 RF: 0 spironolactone 25 mg Tablet 12.5 mg PO DAILY 30 Days Qty: 15 RF: 0 furosemide 20 mg Tablet 20 mg PO QAM Qty: 30 RF: 0 Continued fluticasone propion-salmeterol [Wixela Inhub] 250-50 mcg/dose blister with device 1 inh INHALATION BID RF: 0 alprazolam 0.25 mg tablet 0.25 mg PO HS PRN (Reason: Sleep) RF: 0 gabapentin 100 mg capsule 100 mg PO TID RF: 0 aspirin [Aspirin Low Dose] 81 mg Tablet,Delayed Release (Dr/Ec) 81 mg PO DAILY RF: 0 metoprolol succinate 50 mg tablet extended release 24 hr 50 mg PO DAILY RF: 0 albuterol sulfate 90 mcg/actuation HFA aerosol inhaler 2 puff INHALATION Q6 PRN (Reason: Shortness Of Breath Or Wheezing) RF: 0 multivitamin Tablet 1 tab PO DAILY RF: 0 Discontinued lisinopril 20 mg tablet 20 mg PO DAILY RF: 0 amlodipine 5 mg tablet 5 mg PO DAILY RF: 0 Discharge Orders: Discharge Order (Routine); Ordered 11/13/20 Ordered By: Lavinia Iverson/Other Patient Handouts: Prediabetes, 5 Steps for Eating Healthier, Heart Attack Dc Admission Data Admit Date/Time: 11/05/20 23:34 Attending Provider: Lavinia Mckeon Admit Provider: Ferny Arthur Primary Care Provider: Rosa Mendoza Other Providers: Darryl Michaud ; Gutierrez Carvajal [facility] ; Efren Alexander ; Feliberto Martínez ; Nava Almendarez ; Esther Guzman Other Interventions: Discharge Summary Assessment (RN) Last Done: 11/13/20 12:36
== END 2020-11-13 14:46 | disposition home health service (06) | DRG 246 ==
LOC: ED 20:45 → CC 22:19 → 1E 23:34 → SUATTDRO 23:34 → 2S 11-10 15:20